=== PATIENT | male | born 1950 | race Caucasian/White ===

== ENCOUNTER → 2018-02-26 06:56 | Outpatient (CLI) | payer MEDICARE, SELFPAY ==
[2018-02-26 07:46] LABS: Absolute Lymphocyte Count 1.41 X10^3/ul (0.83-4.51); Absolute Neutrophil Count 3.3 X10^3/uL (2.0-7.7); Basophil# 0.08 X10^3/uL; Basophil% 1.3 % (0-1); Eosinophil# 0.14 X10^3/uL; Eosinophils% 2.3 % (0-5); Hematocrit 35.4 % (40-54); Hemoglobin 11.5 g/dl (13.0-16.5); Lymphocyte # 1.41 X10^3/ul (4.0); Lymphocyte % 23.5 % (19-41); Mean Corp Hgb Conc 32.5 g/gl (32-36); Mean Corpuscular Hgb 31.5 pg (27.0-32.0); Mean Platelet Vol. 10.5 fl (6.2-12.0); Monocyte# 1.03 X10^3/uL; Monocyte% 17.1 % (0-10); Neutrophil # 3.34 X10^3/uL (2.7-7.7); Neutrophil % 55.6 % (47-70); Platelet Count 303 K/mm3 (150-450); RBC Distribution Width CV 13.4 % (11.6-14.6); RBC Distribution Width SD 47.7 fl (35.1-43.9); Red Blood Count 3.65 M/mm3 (4.6-6.2)
[2018-02-26 07:52] LABS: POSITIVE COUNT NO; POSITIVE DIFFERENTIAL NO; POSITIVE MORPHOLOGY NO
[2018-02-26 08:21] LABS: ALB/GLOB Ratio 0.5 RATIO (0.9-2.4); AST(SGOT) 10 U/L (15-37); Alanine Aminotransfer ALT/SGPT 15 U/L (16-61); Albumin, Serum 2.7 g/dL (3.2-5.0); Alkaline Phosphatase 87 U/L (45-117); Anion Gap 6 (5-15); BUN 22 mg/dL (7-18); BUN/Creat Ratio 25.8 RATIO (10-20); Calcium,Total 8.8 mg/dL (8.5-10.1); Chloride 107 mmol/L (98-107); Creatinine, Serum 0.85 mg/dL (0.70-1.30); EST Glomerular Filtration Rate 95 mL/min (>60); Est Glom Filt Rate - Afr Amer 115 mL/min (>60); Globulin 5.9 g/dL (2.2-4.2); Glucose 108 mg/dL (74-106); Magnesium 2.2 mg/dL (1.6-2.6); Potassium 4.5 mmol/L (3.5-5.1); Protein, Total 8.6 g/dL (6.4-8.2); Sodium Level 139 mmol/L (136-145)
[2018-02-26 08:46] LABS: Hemoglobin A1c 6.3 % (4.2-6.3)
[2018-03-01 14:07] LABS: PROEL- A/G Ratio 0.6 (0.7-1.7); PROEL- Albumin 3.1 g/dL (2.9-4.4); PROEL- Alpha-1 Globulin 0.3 g/dL (0.0-0.4); PROEL- Alpha-2 Globulin 0.9 g/dL (0.4-1.0); PROEL- Beta Globulin 0.8 g/dL (0.7-1.3); PROEL- Gamma Globulin 2.9 g/dL (0.4-1.8); PROEL- Globulin, Total 4.8 g/dL (2.2-3.9); PROEL- TOTAL PROTEIN 7.9 g/dL (6.0-8.5)
[2018-03-02 16:12] LABS: PROELU- Albumin, Urine 0.6 % (.); PROELU- Alpha-1-Globulin,Ur 0.3 % (.); PROELU- Alpha-2-Globulin,Ur 1.9 % (.); PROELU- Beta Globulin, Ur 94.7 % (.); PROELU- Gamma Globulin, Ur 2.5 % (.); PROELU- M-Spike, Ur 90.8 % (Not Observed); Total Protein, Ur 199.2 mg/dL (Not Estab.)
== END ==
PROVIDERS: Family Provider Internal Medicine; PCP Internal Medicine; Visit Provider Internal Medicine
DX: R73.01 Impaired fasting glucose (principal); D47.2 Monoclonal gammopathy; Z79.899 Other long term (current) drug therapy
CPT/HCPCS: 36415; 80053; 83036; 83735; 84165; 84166; 85025

== ENCOUNTER → 2018-08-26 06:30 | Outpatient (CLI) | payer MEDICARE, SELFPAY ==
[2018-08-26 07:43] LABS: Absolute Lymphocyte Count 1.69 X10^3/ul (0.83-4.51); Absolute Neutrophil Count 4.9 X10^3/uL (2.0-7.7); Basophil% 1.3 % (0-1); Eosinophil# 0.13 X10^3/uL; Eosinophils% 1.6 % (0-5); Hematocrit 36.3 % (40-54); Hemoglobin 11.4 g/dl (13.0-16.5); Lymphocyte # 1.69 X10^3/ul (4.0); Lymphocyte % 21.3 % (19-41); Mean Corp Hgb Conc 31.4 g/gl (32-36); Mean Corpuscular Hgb 31.1 pg (27.0-32.0); Mean Corpuscular Volume 98.9 fL (80-94); Mean Platelet Vol. 10.6 fl (6.2-12.0); Monocyte# 1.06 X10^3/uL; Monocyte% 13.4 % (0-10); Neutrophil # 4.94 X10^3/uL (2.7-7.7); Neutrophil % 62.1 % (47-70); POSITIVE COUNT NO; POSITIVE DIFFERENTIAL NO; POSITIVE MORPHOLOGY NO; Platelet Count 324 K/mm3 (150-450); RBC Distribution Width CV 13.5 % (11.6-14.6); RBC Distribution Width SD 47.2 fl (35.1-43.9); Red Blood Count 3.67 M/mm3 (4.6-6.2); White Blood Count 7.9 K/mm3 (4.4-11.0)
[2018-08-26 08:08] LABS: ALB/GLOB Ratio 0.4 RATIO (0.9-2.4); AST(SGOT) 11 U/L (15-37); Alanine Aminotransfer ALT/SGPT 19 U/L (16-61); Albumin, Serum 2.4 g/dL (3.2-5.0); Alkaline Phosphatase 97 U/L (45-117); Anion Gap 8 (5-15); BUN 23 mg/dL (7-18); BUN/Creat Ratio 24.3 RATIO (10-20); Calcium,Total 8.9 mg/dL (8.5-10.1); Chloride 104 mmol/L (98-107); Cholesterol 69 mg/dL (200); Creatinine, Serum 0.94 mg/dL (0.70-1.30); EST Glomerular Filtration Rate 84 mL/min (>60); Est Glom Filt Rate - Afr Amer 102 mL/min (>60); Globulin 6.4 g/dL (2.2-4.2); Glucose 121 mg/dL (74-106); High Density Lipoprotein 30 mg/dL; Magnesium 2.2 mg/dL (1.6-2.6); Potassium 4.6 mmol/L (3.5-5.1); Protein, Total 8.8 g/dL (6.4-8.2); Sodium Level 139 mmol/L (136-145); Triglycerides 59 mg/dL; Very Low Density Lipoprotein 12 mg/dL (5-40)
[2018-08-26 08:23] LABS: Hemoglobin A1c 6.8 % (4.2-6.3)
[2018-08-29 15:47] LABS: PROEL- A/G Ratio 0.6 (0.7-1.7); PROEL- Albumin 2.9 g/dL (2.9-4.4); PROEL- Alpha-1 Globulin 0.3 g/dL (0.0-0.4); PROEL- Beta Globulin 0.7 g/dL (0.7-1.3); PROEL- Gamma Globulin 3.2 g/dL (0.4-1.8); PROEL- Globulin, Total 5.2 g/dL (2.2-3.9); PROEL- TOTAL PROTEIN 8.1 g/dL (6.0-8.5)
[2018-08-30 16:24] LABS: PROELU- Albumin, Urine 3.7 % (.); PROELU- Alpha-1-Globulin,Ur 1.1 % (.); PROELU- Alpha-2-Globulin,Ur 4.4 % (.); PROELU- Beta Globulin, Ur 87.8 % (.); PROELU- Gamma Globulin, Ur 3.1 % (.); PROELU- M-Spike, Ur 83.2 % (Not Observed); Total Protein, Ur 137.5 mg/dL (Not Estab.)
== END ==
PROVIDERS: Family Provider Internal Medicine; PCP Internal Medicine; Referring Provider Internal Medicine; Visit Provider Internal Medicine
DX: E78.6 Lipoprotein deficiency (principal); R73.01 Impaired fasting glucose; Z79.899 Other long term (current) drug therapy
CPT/HCPCS: 36415; 80053; 80061; 83036; 83735; 84165; 84166; 85025

== ENCOUNTER 2019-01-29 04:52 | Emergency (ER) | payer MEDICARE, SELFPAY ==
[2019-01-29 04:52] VITALS: BP 139/79; PULSE 88; RESP 14; TEMP 36.8; O2SAT 97; BMI 28.2
--- NOTE | 2019-01-29 05:16 | ED.VIS.GEN ---
History of Present Illness Chief Complaint: Sore Throat Informant: Patient Narrative: She has had 3 days of nonproductive cough and sore throat. He went to urgent care and given cough medicine on day 1. He is taken Tylenol and ibuprofen and other olvt-cir-rahbmiy's. Comes in to make sure he does not have strep throat. Current severity is mild. Worsened by swallowing. No fevers or chills. He does have some soreness in the left side of his lymph nodes per patient. He has no sick contacts Past Medical History - Allergies and Home Meds Allergies/Adverse Reactions: Allergies No Known Allergies Allergy (Verified 01/29/19 04:54) Primary Care Physician: Francheska Perez MD [Primary Care Provider] - Prior records reviewed: Yes Past Medical History: - - Reviewed Surgical History: - - Reviewed Smoking Status: Former smoker Alcohol: None Drugs: None Review of Systems General: Denies: Chills, Fever, Sweats Eyes: Denies: Visual changes - bilaterally, Diplopia ENT: Reports: Sore throat. Denies: Rhinorrhea Cardiovascular: Denies: Chest pain, Palpitations Respiratory: Reports: Cough. Denies: Dyspnea, Dyspnea on exertion Gastrointestinal: Denies: Abdominal pain, Nausea, Vomiting, Diarrhea, Melena, Hematochezia Genitourinary: Denies: Dysuria, Hematuria, Frequency Musculoskeletal: Denies: Back pain, Extremity Pain Skin: Denies: Rash, Wounds Neurological: Denies: Headache, Weakness, Numbness Physical Exam Vital Signs/Narrative: Vital Signs Temp Pulse Resp BP Pulse Ox 01/29/19 04:52 98.3 F 88 14 139/79 H 97 General: Well nourished, Well developed, No Acute Distress Head: Normocephalic, Atraumatic Eyes: Perrl, EOMI ENT: Moist mucous membranes, No rhinorrhea, - - She has 2+ tonsils bilaterally without exudate. Mild erythema Neck: Supple, Nontender Cardiovascular: Regular rate, Regular rhythm, No murmurs Respiratory: No distress, CTA bilaterally, Chest nontender Abdomen: Soft, Nontender, Nondistended, Normal bowel sounds Back: Nontender, Normal Inspection Extremities: Nontender, No edema Skin: Normal color, No rash Neurological: Alert, Oriented x3, Cranial nerves II-XII grossly intact, Normal Strength, Normal Sensation Psychological: Normal affect, Normal Mood Diagnostic/Tx/Re-eval - Medical Decision Making Patient stated he just took pain medicines at home therefore did not want anything. Rapid strep obtained. Strep test negative. At this time I think the patient just has a viral upper respiratory infection. We will continue to treat this symptomatically. We will follow-up as an outpatient. ED Disposition - Plan for ED Patient: Disposition: Home or Assisted Living Diagnosis: Upper respiratory infection Instructions: ED Pharyngitis Viral Referrals: Francheska Perez MD [Primary Care Provider] -
[2019-01-29 06:29] VITALS: BP 124/70; PULSE 84; RESP 16; O2SAT 98
== END 2019-01-29 06:30 | disposition home or self-care (01) ==
PROVIDERS: Emergency Provider Emergency Medicine; Family Provider Internal Medicine; PCP Internal Medicine
DX: J06.9 Acute upper respiratory infection, unspecified (principal); Z87.891 Personal history of nicotine dependence
CPT/HCPCS: 87880; 99282

== ENCOUNTER → 2019-05-30 06:06 | Outpatient (CLI) | payer MEDICARE, SELFPAY ==
[2019-05-30 07:19] LABS: Hematocrit 32.7 % (40-54); Hemoglobin 10.3 g/dL (13.0-16.5); Mean Corp Hgb Conc 31.5 g/dL (32-36); Mean Corpuscular Hgb 30.5 pg (27.0-32.0); Mean Corpuscular Volume 96.7 fL (80-94); Mean Platelet Vol. 10.2 fl (6.2-12.0); Platelet Count 297 K/mm3 (150-450); RBC Distribution Width CV 13.8 % (11.6-14.6); RBC Distribution Width SD 49.1 fl (35.1-43.9); Red Blood Count 3.38 M/mm3 (4.6-6.2); White Blood Count 7.4 K/mm3 (4.4-11.0)
[2019-05-30 07:50] LABS: Hemoglobin A1c 7.8 % (4.2-6.3)
[2019-05-30 07:52] LABS: ALB/GLOB Ratio 0.3 RATIO (0.9-2.4); AST(SGOT) 12 U/L (15-37); Alanine Aminotransfer ALT/SGPT 22 U/L (16-61); Albumin, Serum 2.3 g/dL (3.2-5.0); Alkaline Phosphatase 95 U/L (45-117); Anion Gap 8 (5-15); BUN 22 mg/dL (7-18); BUN/Creat Ratio 20.4 RATIO (10-20); Chloride 103 mmol/L (98-107); Creatinine, Serum 1.08 mg/dL (0.70-1.30); EST Glomerular Filtration Rate 72 mL/min (>60); Est Glom Filt Rate - Afr Amer 87 mL/min (>60); Globulin 6.8 g/dL (2.2-4.2); Glucose 153 mg/dL (74-106); Potassium 4.4 mmol/L (3.5-5.1); Protein, Total 9.1 g/dL (6.4-8.2); Sodium Level 137 mmol/L (136-145)
== END ==
PROVIDERS: Family Provider Internal Medicine; PCP Internal Medicine; Referring Provider Internal Medicine; Visit Provider Internal Medicine
DX: R73.01 Impaired fasting glucose (principal); Z79.899 Other long term (current) drug therapy
CPT/HCPCS: 36415; 80053; 83036; 85027

== ENCOUNTER → 2019-11-29 05:51 | Outpatient (CLI) | payer MEDICARE, SELFPAY ==
[2019-11-29 06:41] LABS: Hematocrit 30.9 % (40-54); Hemoglobin 9.8 g/dL (13.0-16.5); Mean Corp Hgb Conc 31.7 g/dL (32-36); Mean Corpuscular Hgb 29.9 pg (27.0-32.0); Mean Corpuscular Volume 94.2 fL (80-94); Mean Platelet Vol. 10.2 fl (6.2-12.0); Platelet Count 303 K/mm3 (150-450); RBC Distribution Width CV 14.1 % (11.6-14.6); RBC Distribution Width SD 48.3 fl (35.1-43.9); Red Blood Count 3.28 M/mm3 (4.6-6.2); White Blood Count 7.2 K/mm3 (4.4-11.0)
[2019-11-29 07:10] LABS: ALB/GLOB Ratio 0.3 RATIO (0.9-2.4); AST(SGOT) 9 U/L (15-37); Alanine Aminotransfer ALT/SGPT 18 U/L (16-61); Albumin, Serum 2.3 g/dL (3.2-5.0); Alkaline Phosphatase 97 U/L (45-117); Anion Gap 6 (5-15); BUN 25 mg/dL (7-18); Calcium,Total 9.3 mg/dL (8.5-10.1); Chloride 101 mmol/L (98-107); Cholesterol 75 mg/dL (200); Creatinine, Serum 1.39 mg/dL (0.70-1.30); EST Glomerular Filtration Rate 54 mL/min (>60); Est Glom Filt Rate - Afr Amer 65 mL/min (>60); Globulin 7.5 g/dL (2.2-4.2); Glucose 164 mg/dL (74-106); High Density Lipoprotein 32 mg/dL; Potassium 4.5 mmol/L (3.5-5.1); Protein, Total 9.8 g/dL (6.4-8.2); Sodium Level 134 mmol/L (136-145); Triglycerides 54 mg/dL; Very Low Density Lipoprotein 11 mg/dL (5-40)
[2019-11-29 10:17] LABS: Hemoglobin A1c 7.9 % (4.2-6.3)
== END ==
PROVIDERS: PCP Internal Medicine; Referring Provider Internal Medicine; Visit Provider Internal Medicine
DX: R73.09 Other abnormal glucose (principal); E88.09 Other disorders of plasma-protein metabolism, not elsewhere classified; Z79.899 Other long term (current) drug therapy; I70.0 Atherosclerosis of aorta
CPT/HCPCS: 36415; 80053; 80061; 83036; 85027

== ENCOUNTER → 2020-01-11 06:01 | Outpatient (CLI) | payer MEDICARE, SELFPAY ==
[2020-01-11 07:34] LABS: Hematocrit 29.1 % (40-54); Mean Corp Hgb Conc 30.9 g/dL (32-36); Mean Corpuscular Hgb 30.3 pg (27.0-32.0); Mean Platelet Vol. 10.4 fl (6.2-12.0); Platelet Count 298 K/mm3 (150-450); RBC Distribution Width CV 14.2 % (11.6-14.6); RBC Distribution Width SD 50.2 fl (35.1-43.9); Red Blood Count 2.97 M/mm3 (4.6-6.2); White Blood Count 6.1 K/mm3 (4.4-11.0)
[2020-01-11 08:11] LABS: ALB/GLOB Ratio 0.3 RATIO (0.9-2.4); AST(SGOT) 13 U/L (15-37); Alanine Aminotransfer ALT/SGPT 19 U/L (16-61); Albumin, Serum 2.2 g/dL (3.2-5.0); Alkaline Phosphatase 95 U/L (45-117); Anion Gap 6 (5-15); BUN 20 mg/dL (7-18); BUN/Creat Ratio 14.6 RATIO (10-20); Calcium,Total 8.9 mg/dL (8.5-10.1); Chloride 102 mmol/L (98-107); Creatinine, Serum 1.37 mg/dL (0.70-1.30); EST Glomerular Filtration Rate 55 mL/min (>60); Est Glom Filt Rate - Afr Amer 66 mL/min (>60); Globulin 6.7 g/dL (2.2-4.2); Glucose 185 mg/dL (74-106); Potassium 4.2 mmol/L (3.5-5.1); Protein, Total 8.9 g/dL (6.4-8.2); Sodium Level 134 mmol/L (136-145)
== END ==
PROVIDERS: PCP Internal Medicine; Referring Provider Internal Medicine; Visit Provider Internal Medicine
DX: N18.3 Chronic kidney disease, stage 3 (moderate) (principal); D89.0 Polyclonal hypergammaglobulinemia; D89.2 Hypergammaglobulinemia, unspecified; D64.9 Anemia, unspecified
CPT/HCPCS: 36415; 80053; 83883; 84165; 84166; 85027

== ENCOUNTER → 2020-06-27 06:00 | Outpatient (CLI) | payer MEDICARE, SELFPAY ==
[2020-06-27 08:00] LABS: Hemoglobin A1c 7.2 % (3.8-5.6)
[2020-06-27 08:05] LABS: ALB/GLOB Ratio 0.3 RATIO (0.9-2.4); AST(SGOT) 11 U/L (15-37); Alanine Aminotransfer ALT/SGPT 18 U/L (16-61); Albumin, Serum 2.1 g/dL (3.2-5.0); Alkaline Phosphatase 109 U/L (45-117); Anion Gap 4 (5-15); BUN 25 mg/dL (7-18); BUN/Creat Ratio 16.4 RATIO (10-20); Calcium,Total 9.3 mg/dL (8.5-10.1); Chloride 106 mmol/L (98-107); Creatinine, Serum 1.52 mg/dL (0.70-1.30); EST Glomerular Filtration Rate 48 mL/min (>60); Est Glom Filt Rate - Afr Amer 59 mL/min (>60); Globulin 6.8 g/dL (2.2-4.2); Glucose 153 mg/dL (74-106); Potassium 4.3 mmol/L (3.5-5.1); Protein, Total 8.9 g/dL (6.4-8.2); Sodium Level 139 mmol/L (136-145)
[2020-06-27 11:14] LABS: Microalbumin,Random Urine 31.9 mg/L (NO RANGE EST.)
== END ==
PROVIDERS: PCP Internal Medicine; Referring Provider Internal Medicine; Visit Provider Internal Medicine
DX: E11.9 Type 2 diabetes mellitus without complications (principal)
CPT/HCPCS: 36415; 80053; 82043; 82570; 83036

== ENCOUNTER → 2020-07-19 08:22 | Outpatient (CLI) | payer MEDICARE, SELFPAY ==
--- NOTE | 2020-07-18 | BMB_PTH ---
PATIENT: HUMBERTO LOZANO LOC: CT U#:[id number] AGE/SX: 75/M ROOM: RE07/19/[address]: Dr. Biju Strong DO : 1950 BED: DIS: SPEC #: [id number] RECD: 07/19/20 12:42 STATUS: SOUAmish REQ #: [id number] FOREIGN: 07/18/20 00:[address]: Biju Strong DEPT: BONE MARROW RECD BY: Gilson Marie ENTERED: 07/19/20 12:43 SP TYPE: BMB OTHR DR: Dr. Francheska Perez MD Tissues: A - Bone marrow, NOS B - Bone marrow, NOS C - Bone marrow, NOS Procedures: Bone Marrow Aspiration Bone Marrow Core Biopsy Iron Stain Bone Marrow HEADER OPERATION: Bone marrow biopsy and aspiration PRE-OP DIAGNOSIS: IgM monoclonal gammopathy; lymphoplasmacytic lymphoma TISSUE SUBMITTED: A - Core, B - Clot, C - Smears, and send outs (flow, cytogenetics and MYD88) BONE MARROW DIAGNOSIS Right hip bone marrow core, clot and aspirate smears: Consistent with involvement by non-Hodgkin B-cell lymphoma, favor lymphoplasmacytic lymphoma. Iron - 4+, rare atypical sideroblasts are noted, significant increase of ring sideroblasts are not seen. Flow cytometry study from [facility] shows CD5 negative, CD10 negative, CD103 negative clonal B cell population, nonspecific phenotype, 3% of nonerythroid cells. The complete report is viewable in patient's EMR. Cytogenetic studies and FISH studies are pending at this time. SJ:neil 07/24/20 COMMENT Bone marrow core biopsy specimen is nondiagnostic and does not show any bone marrow core or hematopoietic cells. Clinical correlation and appropriate follow up are necessary. Case has been reviewed in consultation with Dr. Conrad who concurs with the above diagnosis. IDC:AM BONE MARROW STUDY Slides are reviewed. CBC DATE: 07/19/20 WBC 6.4; RBC 2.91; HGB 8.8; HCT 29.4; MCV 101; RDW 14.1; PLTS 329,000 SEGS 67.9%; LYMPHS 17.9%; MONOS 11.0%; EOS 1.3%; BASOS 1.4% PERIPHERAL SMEAR: Submitted. RBC: Macrocytic anemia WBC: Unremarkable. The WBC count is compatible to as reported above. PLTS: Adequate. BONE MARROW ASPIRATE DIFFERENTIAL: 200 cell count. Blasts % (normal 0-2): 0 Promyelocytes % (normal 1-5): 0 Myelocytes and metamyelocytes % (normal 17-41): 24 Bands and Segs % (normal 15-32): 25 Eos % (normal 1-6): 5 Basos % (normal 0-1): 0 Monocytes % (normal 0-4): 0 Erythroid Precursors % (normal 17-35): 14 Lymphocytes % (normal 7-13): 30 Plasma Cells % (normal 0-2): 2 ASPIRATE FINDINGS: Site: Right hip Spicular, Cellular M/E ratio: 3.9 (Normal 1.5-4.0) Megakaryocytes: Present and normal morphology. Erythropoiesis: Normoblastic. Granulopoiesis: Progressive and unremarkable. Comment: Increased number of small lymphocytes are noted. Significant increase of plasma cells is not seen. CORE BIOPSY FINDINGS: Site: Right hip Comment: The specimen is nondiagnostic and does not show any bone marrow core or hematopoietic cells. ASPIRATE CLOT FINDINGS: Site: Right hip Marrow particles: Numerous Cellularity: 50% M/E ratio: Within normal limits. Megakaryocytes: Present and adequate in number. Granulomas: Absent. Lymphoid aggregates: Present. Atypical infiltrates: Present. Comment: Immunohistochemistry ([id number]) is consistent with involvement by non-Hodgkin B-cell lymphoma, favor lymphoplasmacytic lymphoma. Mild increase of plasma cells is also noted with kappa monoclonality. SPECIAL STAINS WITH MATCHED CONTROLS: Iron: 4+, are atypical sideroblasts are noted. Significant increase of ring sideroblasts are not seen. Reticulin: focal mild increase of reticulin fibers are noted. PAS: Highlights myeloid cells and megakaryocytes. BONE MARROW GROSS A - Received is a container labeled with the patient's name and designated right hip. The specimen consists of a scant amount of soft tissue. The specimen is totally submitted for cell block preparation. B - Received labeled with the patient's name and designated right hip is a specimen that consists of approximately 8 cc of bloody fluid that on filtration yields multiple minute fragments of blood clots measuring in aggregate 3 x 2.5 x 0.3 cm. The specimen is totally submitted in one cassette. C - Also received are 20 unstained and 1 peripheral stained slides. The unstained slides are submitted for appropriate staining. Also received are two green top tubes which are sent to our reference lab for flow, cytogenetics and MYD88. / SJ:rg 07/19/20 TC:0 CPT: 14630, 70195, 07807 x2, 89331 x3 ADDENDUM ADDENDUM ADDENDUM ADDENDUM ADDENDUM ADDENDUM ADDENDUM ADDENDUM 07/31/2020 10:49 ADDENDUM 07/31/2020 10:49 ADDENDUM 07/31/2020 10:49 ADDENDUM 07/31/2020 10:49 ADDENDUM 07/31/2020 10:49 CYTOGENETICS REPORT FROM [facility] CYTOGENETIC RESULT: 46,XY[20] INTERPRETATION: Normal male karyotype was observed in twenty metaphases analyzed. Please see complete report in e-chart or EMR for further details
--- NOTE | 2020-07-18 | IMM_PTH ---
PATIENT: HUMBERTO LOZANO LOC: CT U#:[id number] AGE/SX: 75/M ROOM: RE07/19/[address]: Dr. Biju Strong DO : 1950 BED: DIS: SPEC #: [id number] RECD: 07/22/20 10:28 STATUS: SOUT REQ #: [id number] FOREIGN: 07/18/20 00:[address]: Biju Strong DEPT: IMMUNOHISTOCHEMISTRY RECD BY: Kacy Lopez ENTERED: 07/22/20 10:30 SP TYPE: IMMUNO OTHR DR: Dr. Francheska Perez MD Tissues: B - Bone marrow of iliac crest Procedures: BCL-2 (add) BCL-6 (add) CD10 (add) CD138 (add) CD20 (add) CD23 (add) CD3 (add) CD43 (add) CD45 (add) CD79A (add) CYCLIN (add) KAPPA (add) KI-67 (add) LAMBDA (add) CD5 (initial) PHYSICIAN & [address] [address] SPECIMEN INFORMATION: Tissue Source: B - Bone marrow biopsy, clot Clinical Info: IgM monoclonal gammopathy, lymphoplasmacytic lymphoma Specimen Number: [id number] CPT code: 90204, 90279 x14 METHODOLOGY: Deparaffinized sections of prefer/formalin-fixed tissue or PAP/DQ stained slides are incubated with monoclonal/polyclonal antibodies/oligonucleotide probes. Localization is made via biotin free immunoperoxidase method. Appropriate controls are performed and reacted as expected. Results on target cell population are indicated in the following table: RESULTS: ANTIBODY / CLONE RESULT Block B CD3 (PS1) negative CD5 (SP10) negative CD10 (56C6) negative CD20 (L26) positive CD23 (1B12) negative CD43 (L60) positive CD45 (RP2/18) positive CD79a (11E3) positive CD138 (B-A38) positive, a few cells BCL-2 (bcl-2/100/D5) positive BCL-6 (TC812Q/A8) negative [place] D1/BCL-1 (SP4) negative Ki-67 (30-9) positive, low [place] (polyclonal) positive Lambda (polyclonal) negative These tests were developed and their performance characteristics determined by [facility]. They may not have been cleared or approved by the U.S. Food and Drug Administration. The FDA has determined that such clearance or approval is not necessary. The above immunohistochemical/dualISH markers are ordered and reviewed by the Pathologist. INTERPRETATION: B. Bone marrow biopsy, clot: Consistent with involvement by non-Hodgkin B-cell lymphoma, favor lymphoplasmacytic lymphoma. SJ:neil 07/24/20 Case has been reviewed in consultation with Dr. Conrad who concurs with the above diagnosis. IDC:AM
[2020-07-19] VITALS (11 sets, daily range): BP systolic 97–157; BP diastolic 48–88; PULSE 66–82; RESP 12–20; TEMP 36.4; O2SAT 93–99; BMI 26.9
[2020-07-19 08:45] LABS: Absolute Lymphocyte Count 1.14 X10^3/uL (0.83-4.51); Absolute Neutrophil Count 4.3 X10^3/uL (2.0-7.7); Basophil# 0.09 X10^3/uL; Basophil% 1.4 % (0-1); Eosinophil# 0.08 X10^3/uL; Eosinophils% 1.3 % (0-5); Hematocrit 29.4 % (40-54); Hemoglobin 8.8 g/dL (13.0-16.5); Lymphocyte # 1.14 X10^3/ul (4.0); Lymphocyte % 17.9 % (19-41); Mean Corp Hgb Conc 29.9 g/dL (32-36); Mean Corpuscular Hgb 30.2 pg (27.0-32.0); Mean Platelet Vol. 10.2 fl (6.2-12.0); NRBC Flagged by Analyzer 0 % (0-5); Neutrophil # 4.34 X10^3/uL (2.7-7.7); Neutrophil % 67.9 % (47-70); Platelet Count 329 K/mm3 (150-450); RBC Distribution Width CV 14.1 % (11.6-14.6); RBC Distribution Width SD 52.5 fl (35.1-43.9); Red Blood Count 2.91 M/mm3 (4.6-6.2); White Blood Count 6.4 K/mm3 (4.4-11.0)
[2020-07-19 08:51] LABS: International Normalized Ratio 1.2; Prothrombin Time (Protime)PT. 14.5 SECONDS (11.7-14.9)
--- NOTE | 2020-07-19 09:04 | CT_ITS ---
PROCEDURE: CT GUIDED BONE marrow biopsy and aspiration of the posterior aspect of the right iliac bone. DATE: 07/19/2020. INDICATION: Male, 70 years old. Monoclonal gammopathy. PHYSICIAN: Nicanor Thomas M.D. RADIATION DOSAGE (If Supplied By Facility): CTDIvol = ( 15.2 ) mGy, DLP = ( 350.86 ) mGycm. Individualized dose optimization techniques were utilized. PROCEDURE: The risks, benefits, and alternatives to the procedure were explained to the patient. The specific risk of hemorrhage requiring further treatment or intervention was detailed and accepted. Follow-up instructions were discussed with the patient as well. Written informed consent was obtained. The patient was brought into the CT suite and placed in the prone position. . An appropriate entry site was identified. The overlying skin was prepped and draped in the usual sterile fashion. 1% lidocaine was administered subcutaneously for local anesthesia. Conscious sedation was performed. The patient received 2 mg of VERSED and 50 mcg of FENTANYL intravenously. Conscious sedation was started at 9:28 AM and terminated at 9:39 AM. The patient was independently monitored by the department nurse. Under CT guidance, a bone marrow biopsy and bone marrow aspiration of the posterior aspect of the right iliac bone were performed utilizing an 11-gauge bone marrow biopsy kit. The specimens were then placed in the appropriate fluid in transported to the laboratory for analysis. Hemostasis was obtained. The patient tolerated the procedure well without immediate complications. CT/Biopsy/Inj or Needle Placement IMPRESSION: Successful CT guided bone marrow biopsy and aspiration of the posterior aspect of the right iliac bone, as described above. The conscious sedation protocol was followed. Electronically Signed: Nicanor Thomas, at 10:08 EDT , Service support ,
--- NOTE | 2020-07-19 09:09 | NURSING ---
PT HAS HEART MURMUR WHICH HE HAS HAD SINCE HE WAS A CHILD.
[2020-07-19] MEDS: Midazolam 2 MG/2 ML Syringe IV (09:28)
[2020-07-19] MEDS: fentaNYL 100 MCG/2 ML Ampul IV (09:30)
[2020-07-19 09:49] LABS: Bone Marrow Aspiraton SEE PATHOLOGY REPORT
== END ==
PROVIDERS: PCP Internal Medicine; Referring Provider Internal Medicine Hematology & Oncology; Visit Provider Internal Medicine Hematology & Oncology
DX: D47.2 Monoclonal gammopathy (principal)
CPT/HCPCS: 38222; 36415; 77012; 85025; 85610; 88305; 88311; 88313; 88341; 88342; J7040

== ENCOUNTER → 2020-09-19 07:46 | Outpatient (CLI) | payer MEDICARE, SELFPAY ==
[2020-07-19 09:03] VITALS: BMI 26.9
[2020-09-17 07:16] LABS: Hematocrit 29.9 % (40-54); Mean Corp Hgb Conc 30.1 g/dL (32-36); Mean Corpuscular Hgb 30.2 pg (27.0-32.0); Mean Corpuscular Volume 100.3 fL (80-94); Mean Platelet Vol. 9.8 fl (6.2-12.0); Platelet Count 350 K/mm3 (150-450); RBC Distribution Width CV 14.3 % (11.6-14.6); RBC Distribution Width SD 52.6 fl (35.1-43.9); Red Blood Count 2.98 M/mm3 (4.6-6.2)
[2020-09-17 07:20] LABS: International Normalized Ratio 1.2; Prothrombin Time (Protime)PT. 14.3 SECONDS (11.7-14.9)
[2020-09-19] VITALS (9 sets, daily range): BP systolic 99–138; BP diastolic 60–86; PULSE 73–83; RESP 14–23; TEMP 36.6; O2SAT 94–100; BMI 26.9
--- NOTE | 2020-09-19 | KID_PTH ---
PATIENT: HUMBERTO LOZANO LOC: ID U#:[id number] AGE/SX: 75/M ROOM: RE09/19/[address]: Dr. Mckenna Jaime DO : 1950 BED: DIS: SPEC #: [id number] RECD: 09/19/20 09:31 STATUS: JOSE J MICHAEL #: [id number] FOREIGN: 09/19/20 00:[address]: Mckenna Jaime DEPT: SURGICAL PATHOLOGY RECD BY: oHng Celaya ENTERED: 09/19/20 09:31 SP TYPE: KIDNEY OTHR DR: Dr. Francheska Perez MD Tissues: Kidney, NOS Procedures: Fluorescent Antibody (ACH) Sp St Grp II Kidney ([facility]) Kidney Biopsy ([facility]) Fluorescent antibody (ACH) add'l HEADER OPERATION: Right kidney biopsy PRE-OP DIAGNOSIS: Proteinuria TISSUE SUBMITTED: Right kidney lower pole 18-gauge core x4 MICROSCOPIC DIAGNOSIS Kidney, right (lower pole), renal biopsy: Tissue insufficient for definitive diagnosis/complete evaluation. Recommend repeat biopsy (see comment). COMMENT The findings are those of predominantly renal medullary tissue with rare glomeruli (3 in routine microscopic sections. 1 in immunofluorescent microscopic sections, N0 and electron microscopic sections) with normal mesangial matrix and cellularity with open capillary loops. No glomerular sclerosis or glomerular collapse is seen. No epithelial crescents are identified. No immunofluorescence/ immunofluorescent deposits are identified. No fuchsinophilic deposits are identified (trichrome stain). Additional pertinent negatives are identified within light microscopic evaluation. However, overall, the present tissue/tissue biopsy is insufficient for definitive/complete evaluation due to marked paucity of glomeruli for histologic and with predominant sampling of renal vasculature and medullary tissue. Only a total of 4 glomeruli are present for histologic evaluation and no glomeruli are available for electron microscopic studies, in the background of the patient's history of proteinuria. Given the patient's history of proteinuria, rebiopsy is advised for more definitive renal cortical (glomerular) sampling which will afford definitive evaluation for glomerular sclerosis or collapse, renal immune deposits (especially by electron microscopic studies) as well as evaluation of podocyte foot processes, among other studies. Tissue insufficient for definitive/complete evaluation; recommend repeat biopsy, as clinically directed. MICROSCOPIC DESCRIPTION LIGHT MICROSCOPY: Unsatisfactory biopsy consisting predominantly of renal medulla/medullary tissue with small admixed portion of renal cortex with up to 3 glomeruli or portions of glomeruli for histologic evaluation. Large vessel/vascular sampling is also identified. The majority of the specimen is that of renal medulla/medullary tissue. Portions of the renal cortex demonstrate 2-3 glomeruli with normal mesangial matrix and cellularity with open capillary loops. Mild arteriolar hyalinosis is seen. Associated interstitial chronic inflammation is seen. No definitive acute/allergic interstitial nephritis is noted. No definitive tubular damage is seen. No epithelial crescents are identified. No areas of glomerular sclerosis are seen. PAS stain highlights rare glomerulus with normal mesangial matrix and cellularity. Mild arteriolar hyalinosis is seen. No glomerular vascular collapse is noted. Mild tubular resorption droplets are identified with an intact tubular epithelial cell cytoplasm. So (silver) stain demonstrates 3 glomeruli with normal mesangial matrix and cellularity and with open capillary loops without areas of sclerosis or collapse. No epithelial crescents are seen. Basement membranes demonstrate normal thickness and normal contour without breaks, splits or irregular luminal outlines. Trichrome stain is negative for fuchsinophilic deposits with rare (3) glomeruli identified. No appreciable interstitial/stromal fibrosis is seen. Large vessel/vascular sampling of medulla/pelvis is noted. Congo red stain is negative congophilia as well as birefringence or dichromatism by polarization microscopy. IMMUNOFLUORESCENCE: Tissue submitted for immunofluorescence microscopy demonstrates renal cortex and medulla and up to 1 glomerulus of a portion of glomerulus for histologic evaluation. Glomerulus demonstrates mild arteriolar hyalinosis of a ferret arterial and normal mesangial matrix and cellularity without areas of epithelial crescent or sclerosis or fibrosis. IgG, IgA, IgM, C3, C1q, kappa light chain and lambda light chain are negative for glomerular, tubulointerstitium or vascular staining. Paucity of glomeruli (immunofluorescence sections) precludes evaluation for/by albumin and fibrinogen. ELECTRON MICROSCOPY: Toluidine blue-stained sections (thick/shell trim tool setter sections) fail to reveal any glomeruli for histologic evaluation. Specimen consists predominantly or renal medullary tissue. Ultrastructure examination is not performed due to lack of glomeruli within sections for electron microscopic studies. GROSS DESCRIPTION The specimen is sent entirely to [facility] for diagnosis. Received in transport medium labeled with the patient's name and kidney biopsy - right, the specimen consists of four-core biopsy specimens of matthews-yellow renal parenchyma which are from 0.2 to 0.7 cm maximum dimension. Director Of [employer] Services piece is submitted for immunofluorescence microscopy. Director Of Medical Staff Services piece is submitted for electron microscopic studies. The remainder of the specimen is entirely submitted as A1.
--- NOTE | 2020-09-19 07:50 | CT_ITS ---
PROCEDURE: CT GUIDED PERCUTANEOUS KIDNEY BIOPSY. DATE: PROCEDURE: CT GUIDED PERCUTANEOUS KIDNEY BIOPSY. DATE: 09/19/2020. INDICATION: Male, 70 years old. Proteinuria. PHYSICIAN: Nicanor Thomas M.D. MEDICATIONS: 2 mg of VERSED and 50 mcg of FENTANYL intravenously. Conscious sedation was started at 8:37 AM and terminated at 8:54 AM. The patient was independently monitored by the department nurse. ACCESS SITE: Lower pole of the right kidney. NEEDLE: 18-gauge core biopsy needle. SPECIMEN: 4 18-gauge cores. EBL: None. COMPLICATIONS: None immediate. RADIATION DOSAGE (If Supplied By Facility): CTDIvol = ( 16.3 ) mGy, DLP = ( 834.59 ) mGycm. Individualized dose optimization techniques were utilized. The risks, benefits, and alternatives to the procedure and sedation were explained to the patient. The specific risk of hemorrhage requiring further treatment or intervention was detailed and accepted. Written informed consent was obtained. The patient was placed on the CT table in the prone position. Multiple axial images were obtained from the lung base through the caudal extent of the kidneys. An appropriate entry site was identified and a garo made on the skin. The skin overlying the [right ] posterior flank was prepped and draped in sterile fashion. 1% lidocaine was administered subcutaneously for local anesthesia. Initially, a 22 gauge needle was advanced and CT images confirmed good needle position. The 22 gauge needle was then exchanged for an 17 gauge introducer needle which was advanced. Repeat CT images confirmed good needle trajectory and tip position. The introducer needle was then advanced into the periphery of the inferior renal pole, and CT images were again obtained to confirm exact tip location. The inner stylet of the introducer needle was then removed and an 18 gauge coaxial needle was advanced thru the introducer needle and biopsy performed. A total of [4 ] passes were performed and the specimen collected was sent to Pathology for further evaluation. The needle was withdrawn. Hemostasis was achieved with manual compression and a sterile dressing was applied. Repeat CT images of the biopsy area was performed which demonstrated no gross bleeding or hematoma. The patient tolerated the procedure well without immediate complications. The patient was transported to the [recovery area] in stable condition. CT/Biopsy/Inj or Needle Placement IMPRESSION: Successful CT guided percutaneous kidney biopsy. Electronically Signed: Nicanor Thomas, at 9:25 EST , Service support ,
[2020-09-19] MEDS: Midazolam 2 MG/2 ML Syringe IV (08:37)
[2020-09-19] MEDS: fentaNYL 100 MCG/2 ML Ampul IV (08:39)
== END ==
PROVIDERS: PCP Internal Medicine; Referring Provider Internal Medicine Nephrology; Visit Provider Internal Medicine Nephrology
DX: R80.9 Proteinuria, unspecified (principal)
CPT/HCPCS: 50200; 36415; 77012; 85027; 85610; 88305; 88313; 88346; 88350; 99155; 99156; J7040; A4216

== ENCOUNTER → 2020-10-02 05:59 | Outpatient (CLI) | payer MEDICARE, SELFPAY ==
[2020-07-19 09:03] VITALS: BMI 26.9
[2020-09-19 08:04] VITALS: BMI 26.9
[2020-10-02 07:32] LABS: Mean Corp Hgb Conc 29.6 g/dL (32-36); Mean Corpuscular Volume 101.1 fL (80-94); Mean Platelet Vol. 10.3 fl (6.2-12.0); Platelet Count 298 K/mm3 (150-450); RBC Distribution Width CV 14.7 % (11.6-14.6); RBC Distribution Width SD 55.1 fl (35.1-43.9); Red Blood Count 2.67 M/mm3 (4.6-6.2); White Blood Count 6.6 K/mm3 (4.4-11.0)
[2020-10-02 07:39] LABS: Protein, Urine (Random) 145.2 mg/dL (<11.9); Protein:Creat Ratio 2170 mg/g CRE (0-200)
[2020-10-02 07:52] LABS: Albumin, Serum 2.2 g/dL (3.2-5.0); BUN 30 mg/dL (7-18); BUN/Creat Ratio 16.9 RATIO (10-20); Calcium,Total 9.2 mg/dL (8.5-10.1); Chloride 106 mmol/L (98-107); Creatinine, Serum 1.78 mg/dL (0.70-1.30); EST Glomerular Filtration Rate 40 mL/min (>60); Est Glom Filt Rate - Afr Amer 49 mL/min (>60); Glucose 148 mg/dL (74-106); Phosphorus 3.5 mg/dL (2.5-4.9); Potassium 4.6 mmol/L (3.5-5.1); Sodium Level 137 mmol/L (136-145)
== END ==
PROVIDERS: PCP Internal Medicine; Referring Provider Internal Medicine Nephrology; Visit Provider Internal Medicine Nephrology
DX: N18.30 Chronic kidney disease, stage 3 unspecified (principal); R80.9 Proteinuria, unspecified
CPT/HCPCS: 36415; 80069; 82570; 84156; 85027

== ENCOUNTER → 2020-10-23 06:34 | Outpatient (CLI) | payer MEDICARE, SELFPAY ==
[2020-09-19 08:04] VITALS: BMI 26.9
[2020-10-23 07:51] LABS: Albumin, Serum 2.7 g/dL (3.2-5.0); BUN 23 mg/dL (7-18); Calcium,Total 9.1 mg/dL (8.5-10.1); Chloride 108 mmol/L (98-107); Creatinine, Serum 1.53 mg/dL (0.70-1.30); EST Glomerular Filtration Rate 48 mL/min (>60); Est Glom Filt Rate - Afr Amer 58 mL/min (>60); Glucose 158 mg/dL (74-106); Phosphorus 3.3 mg/dL (2.5-4.9); Potassium 4.1 mmol/L (3.5-5.1); Sodium Level 139 mmol/L (136-145)
== END ==
PROVIDERS: PCP Internal Medicine; Referring Provider Internal Medicine Nephrology
DX: N17.9 Acute kidney failure, unspecified (principal); N18.30 Chronic kidney disease, stage 3 unspecified
CPT/HCPCS: 36415; 80069

== ENCOUNTER → 2020-11-18 09:06 | Outpatient (CLI) | payer MEDICARE, SELFPAY ==
[2020-09-19 08:04] VITALS: BMI 26.9
[2020-11-18 10:43] LABS: Albumin, Serum 3.3 g/dL (3.2-5.0); BUN 33 mg/dL (7-18); Calcium,Total 9.3 mg/dL (8.5-10.1); Chloride 105 mmol/L (98-107); Creatinine, Serum 1.74 mg/dL (0.70-1.30); EST Glomerular Filtration Rate 41 mL/min (>60); Est Glom Filt Rate - Afr Amer 50 mL/min (>60); Glucose 158 mg/dL (74-106); Potassium 4.2 mmol/L (3.5-5.1); Sodium Level 138 mmol/L (136-145)
== END ==
PROVIDERS: PCP Internal Medicine; Referring Provider Internal Medicine Nephrology; Visit Provider Internal Medicine Nephrology
DX: N17.9 Acute kidney failure, unspecified (principal)
CPT/HCPCS: 36415; 80069

== ENCOUNTER → 2020-11-26 11:03 | Outpatient (CLI) | payer MEDICARE, SELFPAY ==
[2020-09-19 08:04] VITALS: BMI 26.9
[2020-11-26 13:10] LABS: Protein, Urine (Random) 44.6 mg/dL (<11.9); Protein:Creat Ratio 602 mg/g CRE (0-200)
== END ==
PROVIDERS: PCP Internal Medicine; Visit Provider Internal Medicine Nephrology
DX: R80.9 Proteinuria, unspecified (principal)
CPT/HCPCS: 82570; 84156

== ENCOUNTER 2020-12-10 09:40 | Outpatient (RCR) | payer MEDICARE, SELFPAY ==
[2020-09-19 08:04] VITALS: BMI 26.9
[2020-12-10] MEDS: COVID-19 VACC, MRNA(PFIZER)/PF 30 MCG/0.3 ML SYRINGE IM (07:44)
[2020-12-31] MEDS: COVID-19 VACC, MRNA(PFIZER)/PF 30 MCG/0.3 ML SYRINGE IM (07:31)
== END 2021-03-11 23:59 ==
LOC: IMMUN 09:40
PROVIDERS: PCP Internal Medicine; Visit Provider Family Medicine
DX: Z23 Encounter for immunization (principal)
CPT/HCPCS: 0001A; 0002A; 91300

== ENCOUNTER → 2021-02-25 05:58 | Outpatient (CLI) | payer MEDICARE, SELFPAY ==
[2020-09-19 08:04] VITALS: BMI 26.9
[2021-02-25 06:54] LABS: Protein, Urine (Random) 27.4 mg/dL (<11.9); Protein:Creat Ratio 457 mg/g CRE (0-200)
[2021-02-25 07:13] LABS: Albumin, Serum 3.3 g/dL (3.2-5.0); BUN 25 mg/dL (7-18); Calcium,Total 9.1 mg/dL (8.5-10.1); Chloride 106 mmol/L (98-107); Creatinine, Serum 1.56 mg/dL (0.70-1.30); EST Glomerular Filtration Rate 47 mL/min (>60); Est Glom Filt Rate - Afr Amer 57 mL/min (>60); Glucose 155 mg/dL (74-106); Phosphorus 3.3 mg/dL (2.5-4.9); Potassium 4.4 mmol/L (3.5-5.1); Sodium Level 141 mmol/L (136-145)
== END ==
PROVIDERS: PCP Internal Medicine; Referring Provider Internal Medicine Nephrology; Visit Provider Internal Medicine Nephrology
DX: N18.30 Chronic kidney disease, stage 3 unspecified (principal); R80.9 Proteinuria, unspecified
CPT/HCPCS: 36415; 80069; 82570; 84156

== ENCOUNTER 2021-09-12 14:01 | Inpatient (IN) | payer MEDICARE, SELFPAY ==
[2021-09-12] VITALS (16 sets, daily range): BP systolic 151–177; BP diastolic 60–81; PULSE 84–98; RESP 18–28; TEMP 36.8–39.7; O2SAT 91–94; BMI 30.2; BMI 29.5
--- NOTE | 2021-09-12 14:40 | EKG12_ITS ---
Test Reason : CONFUSION Blood Pressure : / mmHG Vent. Rate : 082 BPM Atrial Rate : 082 BPM P-R Int : 142 ms QRS Dur : 096 ms QT Int : 344 ms P-R-T Axes : 035 037 037 degrees QTc Int : 401 ms Normal sinus rhythm Inferior infarct , age undetermined Abnormal ECG Confirmed by ELISHA STRICKLAND, PHILIPPE ([id number]), magazine editor IZAIAH BROWNING ([id number]) on 09/15/2021 9:37:42 AM Referred By: DARWIN/CHRISTINA Confirmed By:PHILIPPE TELLO MD
--- NOTE | 2021-09-12 14:50 | RAD_ITS ---
STUDY: X-RAY CHEST REASON FOR EXAM: Male, 71 years old. FEVER TECHNIQUE: Single AP portable view of the chest. COMPARISON: None. FINDINGS: EKG electrodes are seen. Bibasilar pulmonary infiltrates more prominent at the right lung base. There is no demonstrated pleural abnormality. Normal size heart. Normal mediastinum and blake. Normal visualized pulmonary arteries. There is atherosclerotic tortuosity of the aortic arch and descending thoracic aorta. There are diffuse degenerative changes of the visualized thoracic spine. Metallic anchors are seen overlying the right shoulder suggests rotator cuff surgery. There is no demonstrated abnormality of the visualized soft tissue structures of the upper abdomen. RAD/Chest 1 View (Portable) IMPRESSION: Bibasilar pulmonary infiltrates worse on the right side. Electronically Signed: Nicanor Thomas MD at 15:02 EST , Service support ,
[2021-09-12 15:07] LABS: Absolute Lymphocyte Count 1.58 X10^3/uL (0.83-4.51); Absolute Neutrophil Count 0.6 X10^3/uL (2.0-7.7); Basophil# 0.02 X10^3/uL; Basophil% 0.8 % (0-1); Hematocrit 47.8 % (40-54); Hemoglobin 16.4 g/dL (13.0-16.5); Lymphocyte # 1.58 X10^3/ul (0.83-4.51); Lymphocyte % 59.4 % (19-41); Mean Corp Hgb Conc 34.3 g/dL (32-36); Mean Corpuscular Hgb 33.3 pg (27.0-32.0); Mean Corpuscular Volume 97.2 fL (80-94); Mean Platelet Vol. 13.6 fl (6.2-12.0); Monocyte# 0.48 X10^3/uL; NRBC Flagged by Analyzer 0 % (0-5); Neutrophil # 0.57 X10^3/uL (2.7-7.7); Neutrophil % 21.4 % (47-70); POSITIVE COUNT YES; POSITIVE DIFFERENTIAL YES; Platelet Count 108 K/mm3 (150-450); RBC Distribution Width CV 12.3 % (11.6-14.6); RBC Distribution Width SD 44.6 fl (35.1-43.9); Red Blood Count 4.92 M/mm3 (4.6-6.2); White Blood Count 2.7 K/mm3 (4.4-11.0)
--- NOTE | 2021-09-12 15:12 | EDS_ITS ---
HPI History of Present Illness Chief Complaint: Confusion Detail of Chief Complaint: Confusion that patient woke up with this morning. Informant: family Narrative Narrative: Patient presents to the emergency department with increased confusion that was noted by his this morning. Patient history comes from his son who is with him currently. The son states that patient's had a chest cold for about a week. Son-in-law spoke with him couple of days ago and he seemed fine. He went over around noon today and patient was not following commands like normal and seemed confused. Patient denies head or chest pain. Patient denies abdom inal pain. EMS noted that patient had fever up to 104 and also had an O2 sat of 88%. Patient has had his Covid vaccine and booster. Patient currently being treated for leukemia and finished chemo 1 month ago although he takes an oral chemo medicine as well. Prior similar symptoms: No PFSH PFSH Medical History (Updated 09/12/21 @ 16:[address] Derek Prakash, ) Cholecystectomy planned HTN (hypertension) Leukemia Home Medications gabapentin 600 mg PO TIDCM 01/29/19 [History Last Taken 09/19/20] polyethylene glycol 3350 [Miralax] 119 g PO DAILY 01/29/19 [History Last Taken Unknown] sildenafil [Viagra] 100 mg PO PRN PRN 01/29/19 [History Last Taken Unknown] carboxymethylcellulose sodium 15 ml OP 4X/DAY 07/19/20 [History Last Taken 09/19/20] latanoprost 1 drp EACH EYE QHS 09/19/20 [History Last Taken 09/18/20] omega-3 fatty acids-fish oil 3 ea PO DAILY 09/19/20 [History Last Taken 09/19/20] Allergy/AdvReac Type Severity Reaction Status Date / Time No Known Allergies Allergy Verified 09/12/21 14:07 Social History Smoking Status: Former smoker ROS ROS ED ROS Narrative Confusion Constitutional Constitutional ED: Reports systems reviewed and no addt'l complaints, except as documented and fever(s); Denies body ache(s), change in weight or chills Eyes Eyes: Denies acute decrease in peripheral vision, change in vision, double vision or loss of vision ENT ENT ED: Reports none; Denies ear pain, lip swelling, loss taste/smell, neck pain, otalgia or sore throat Cardiovascular Cardiovascular: Reports none; Denies abdominal pain, chest pain with activity, leg edema, lightheadedness, palpitations, rapid heart rate or syncope Respiratory/Chest Respiratory/Chest: Reports none and cough; Denies change in mental status, dry cough, dyspnea, hemoptysis, shortness of breath at rest or shortness of breath with exertion Gastrointestinal Gastrointestinal: Reports none; Denies abdominal pain, change in stool character, diarrhea, hematemesis, hematochezia, melena, rectal bleeding or vomiting Genitourinary Genitourinary ED: Reports none; Denies abdominal discomfort, anuria, dysuria, genital pain or polyuria Musculoskeletal Musculoskeletal: Reports none; Denies arthralgias, back pain, difficulty walking, extremity pain, muscle weakness or myalgias Integumentary Reports none; Denies abscess or rash Neurologic Neurologic: Reports none; Denies abnormal gait, confusion, focal weakness, frequent falls, headache(s), loss of vision, numbness, paresthesias, radicular pain, vertigo or weakness Psychiatric Psychiatric: Reports systems reviewed and no addt'l complaints, except as documented and none; Denies behavioral changes, confusion, difficulty concentrating, hallucinations, suicidal ideation, tactile hallucinations or visual hallucinations Endocrine Endocrinology: Denies none, cold intolerance, excessive sweating, fatigue or heat intolerance Hematologic/Lymphatic Hematologic/Lymphatic: Reports none; Denies anemia, easy bleeding or easy bruising Allergic/Immunologic Allergic/Immunologic ED: Denies as per HPI, none, lip swelling, mouth swelling, throat swelling, tongue swelling or hives EXAM Physical Exam Const Vital Signs: 09/12/21 14:03 09/12/21 14:07 09/12/21 14:08 Temperature 100.2 F H 100.2 F H Temperature Source Temporal Temporal Pulse Rate 84 84 Respiratory Rate 24 H 24 H Blood Pressure 171/72 H 171/72 H Blood Pressure Mean 105 105 Pulse Ox 91 91 Oxygen Delivery Method Nasal Cannula Nasal Cannula Oxygen Flow Rate (L/min) 3 3 09/12/21 15:01 09/12/21 15:07 09/12/21 15:09 Temperature 100.1 F H Temperature Source Temporal Pulse Rate 90 90 Respiratory Rate 28 H 28 H Blood Pressure 176/79 H 176/79 H Blood Pressure Mean 111 111 Pulse Ox 91 91 92 Oxygen Delivery Method Nasal Cannula Nasal Cannula Nasal Cannula Oxygen Flow Rate (L/min) 3 3 3 09/12/21 15:36 Temperature 102.3 F H Temperature Source Temporal Pulse Rate Respiratory Rate Blood Pressure Blood Pressure Mean Pulse Ox Oxygen Delivery Method Oxygen Flow Rate (L/min) Positive well nourished and well developed General Appearance ED: well developed and NAD HEENT Reports TM's clear and moist mucous membranes normocephalic and atraumatic; Negative for trauma or tenderness Tympanic Membrane ED: Yes TM's clear Eyes PERRL and EOMs intact bilaterally General Eye ED: Negative for pale conjunctiva or scleral icterus Neck no lymphadenopathy, supple and no JVD General: Negative for tenderness Chest Wall inspection of chest normal and palpation of chest normal Chest: Negative for tenderness Resp normal respiratory effort and clear to auscultation bilaterally Effort and Inspection: Negative for respiratory distress or pain with movement Auscultation: Negative for rhonchi, wheezes or diminished lung sounds Cardio regular rate, regular rhythm, S1 normal heart sound, S2 normal heart sound and no murmurs Peripheral Pulses: pulses 2+ throughout GI normal to inspection, nondistended, normoactive bowel sounds, soft to palpation, non-tender, non-distended and no masses Back/Spine no CVA tenderness and no thoracic nor lumbar tenderness Extremity normal to inspection General Extremety ED: Negative for edema General Extremity: Negative for edema Neuro CN's II-XII intact bilaterally, no sensory deficits noted and gait normal Neuro Narrative: No focal deficits noted on exam. Patient answers only some questions and not all. Moves both upper extremities without difficulty. He would not lift his legs up off the bed however. No facial droop noted. Sensorium / Orientation: awake, alert, oriented to person, oriented to place and oriented to time Motor Exam: strength 5/5 throughout and strength abnormal Psych mental status grossly normal Skin no rashes or lesions noted and no wounds MDM MDM MDM Narrative Medical decision making narrative: IV line established on arrival. Patient was given rectal Tylenol. Patient was noted to have COVID-19. On x-ray also patient noted to have bilateral infiltrates and before the Covid test returned I did start patient on Rocephin and Zithromax. Blood cultures ordered and will be pending. Patient also had an ABG ordered and will be pending. Discussed case with hospitalist will evaluate patient for admission Lab Data Attestation: I reviewed the patient's lab results. Labs: Laboratory Results - last 24 hr 09/12/21 09/12/21 09/12/21 14:06 14:06 14:06 WBC 2.7 L RBC 4.92 Hgb 16.4 Hct 47.8 MCV 97.2 H MCH 33.3 H MCHC 34.3 RDW Std Deviation 44.6 H RDW Coeff of Zarina 12.3 Plt Count 108 L MPV 13.6 H Immature Gran % (Auto) 0.400 Neut % (Auto) 21.4 L Lymph % (Auto) 59.4 H [place] % (Auto) 18.0 H Eos % (Auto) 0.0 Baso % (Auto) 0.8 Absolute Neuts (auto) 0.6 L Absolute Lymphs (auto) 1.58 Nucleated RBC % 0 Differential Comment SCANNED Sodium 136 Potassium 5.8 H Chloride 106 Carbon Dioxide 22.0 Anion Gap 8 BUN 27 H Creatinine 1.87 H Estim Creat Clear Calc 33.87 Est GFR (MDRD) Af Amer 46 L Est GFR (MDRD) Non-Af 38 L BUN/Creatinine Ratio 14.4 Glucose 190 H Lactic Acid 1.5 Calcium 9.3 Total Bilirubin 0.90 AST 52 H ALT 38 Alkaline Phosphatase 91 Troponin I High Sens Total Protein 8.0 Albumin 3.0 L Globulin 5.0 H Albumin/Globulin Ratio 0.6 L 09/12/21 14:06 WBC RBC Hgb Hct MCV MCH MCHC RDW Std Deviation RDW Coeff of Zarina Plt Count MPV Immature Gran % (Auto) Neut % (Auto) Lymph % (Auto) [place] % (Auto) Eos % (Auto) Baso % (Auto) Absolute Neuts (auto) Absolute Lymphs (auto) Nucleated RBC % Differential Comment Sodium Potassium Chloride Carbon Dioxide Anion Gap BUN Creatinine Estim Creat Clear Calc Est GFR (MDRD) Af Amer Est GFR (MDRD) Non-Af BUN/Creatinine Ratio Glucose Lactic Acid Calcium Total Bilirubin AST ALT Alkaline Phosphatase Troponin I High Sens 12 Total Protein Albumin Globulin Albumin/Globulin Ratio Radiography Diagnostic Testing: Clinical Impression(s) from Imaging Studies Chest X-Ray 09/12/21 14:50 IMPRESSION: Bibasilar pulmonary infiltrates worse on the right side. Electronically Signed: Nicanor Thomas MD at 15:02 EST , Service support , 1 view chest x-ray obtained interpreted by myself as bilateral lower lobe infiltrates. Radiology in agreement. EKG Initial EKG: Attestation: I personally reviewed and interpreted this EKG as follows: Comments: Sinus rhythm with a ventricular rate of 82 bpm with old inferior infarct noted. Discharge Plan Triage Chief Complaint: Confusion ED Provider: Derek Prakash Dx/Rx/DC Orders Clinical Impression: COVID-19, Encephalopathy, Hypoxemia, Acute renal insufficiency, Weakness Prescriptions: No Action gabapentin 600 MG tablet 600 mg PO TIDCM RF: 0 sildenafil [Viagra] 100 MG tablet 100 mg PO PRN PRN (Reason: ERECTILE DYSFUNCTION) RF: 0 polyethylene glycol 3350 [Miralax] 119 GM Powder 119 g PO DAILY RF: 0 carboxymethylcellulose sodium 15 ML drops 15 ml OP 4X/DAY RF: 0 latanoprost 1 DROP bottle 1 drp EACH EYE QHS RF: 0 omega-3 fatty acids-fish oil 1 EACH capsule 3 ea PO DAILY RF: 0 Primary Care Provider: Francheska Perez Referrals: Francheska Perez MD [Primary Care Provider] -
[2021-09-12 15:25] LABS: ALB/GLOB Ratio 0.6 RATIO (0.9-2.4); AST(SGOT) 52 U/L (15-37); Alanine Aminotransfer ALT/SGPT 38 U/L (16-61); Alkaline Phosphatase 91 U/L (45-117); Anion Gap 8 (5-15); BUN 27 mg/dL (7-18); BUN/Creat Ratio 14.4 RATIO (10-20); Calcium,Total 9.3 mg/dL (8.5-10.1); Chloride 106 mmol/L (98-107); Creatinine, Serum 1.87 mg/dL (0.70-1.30); EST Glomerular Filtration Rate 38 mL/min (>60); Est Glom Filt Rate - Afr Amer 46 mL/min (>60); Estimated Creatinine Clearance 33.87 ml/min; Glucose 190 mg/dL (74-106); Lactic Acid 1.5 mmol/L (0.4-1.9); Potassium 5.8 mmol/L (3.5-5.1); Sodium Level 136 mmol/L (136-145)
[2021-09-12] MEDS: Ceftriaxone 1 GM/50 ML BAG IV (15:36)
[2021-09-12] MEDS: Acetaminophen 650 MG Suppository RC ×2 (15:36→21:14)
[2021-09-12 15:41] LABS: Troponin-I HS 12 pg/mL (3.0-78.0)
[2021-09-12 15:49] LABS: Differential Indicated SCAN CRITERIA MET
[2021-09-12 15:52] LABS: Differential Comment SCANNED
[2021-09-12 16:10] LABS: Allen Test Positive; Base Excess -4 mmol/L (-2 to +2); Blood Gas Specimen Type ART; O2 Delivery Device Cannula; PO2 49 mmHG (75-100); SITE R Radial; SO2 86 % (95-99); Total Carbon Dioxide 21 mmol/L; pCO2 30.5 mmHg (35-45); pH 7.43 (7.35-7.45)
[2021-09-12] MEDS: dexAMETHasone 4 MG/ML Vial 6 MG IV (16:11)
--- NOTE | 2021-09-12 16:19 | CT_ITS ---
STUDY: CT BRAIN WITHOUT CONTRAST REASON FOR EXAM: Male, 71 years old. encephalopathy RADIATION DOSAGE (If Supplied By Facility): CTDIvol = ( 44.99 ) mGy, DLP = ( 1035.42 ) mGycm TECHNIQUE: Transaxial CT imaging of the brain was performed without administration of intravenous contrast material. Individualized dose optimization techniques were used for this CT. COMPARISON: 09/16/2015 FINDINGS: Normal soft tissue structures. Normal calvarium. Normal size ventricles and extra-axial spaces for the patient''s age. Normal white matter tracts of the cerebral hemispheres. Normal basal ganglia and thalami. Normal brainstem. Normal cerebellum. There is no intracranial hemorrhage. There are no findings of an acute ischemic infarction. Normal visualized paranasal sinuses. CT/Brain/Head without Contrast IMPRESSION: Normal unenhanced CT scan of the brain. Electronically Signed: Alfa Romeo MD at 16:46 EST Tel , Service support ,
--- NOTE | 2021-09-12 16:20 | PCM.HP.STD ---
HPI - General General Date of Admission: 09/12/21 HPI Narrative HUMBERTO LOZANO, is a 71 M who presents with confusion. Son, who does not live with the patient noted the patient had been's confused on Wednesday but today was much more confused and I did not know how to use the TV remote. They are concerned and sent patient to the emergency room for evaluation. Patient was placed on oxygen and was found to have COVID-19. He received dexamethasone as well as ceftriaxone and azithromycin. Patient has been vaccinated for COVID-19 and has had the booster. Patient is confused and unable to find any history. The son is at bedside who provides the history. The son states that the patient is normally very independent and works job currently. [facility] Medical History Cholecystectomy planned HTN (hypertension) Leukemia Home Medications gabapentin 600 mg PO TIDCM 01/29/19 [History Last Taken 09/19/20] sildenafil [Viagra] 100 mg PO PRN PRN 01/29/19 [History Last Taken Unknown] carboxymethylcellulose sodium 15 ml OP 4X/DAY 07/19/20 [History Last Taken 09/19/20] latanoprost 1 drp EACH EYE QHS 09/19/20 [History Last Taken 09/18/20] omega-3 fatty acids-fish oil 3 ea PO DAILY 09/19/20 [History Last Taken 09/19/20] amlodipine [Norvasc] 5 mg PO DAILY 09/12/21 [History Last Taken Unknown] ibrutinib [Imbruvica] 420 mg PO DAILY 09/12/21 [History Last Taken Unknown] Allergy/AdvReac Type Severity Reaction Status Date / Time No Known Allergies Allergy Verified 09/12/21 14:07 Family History unable to obtain unable to obtain (Due to encephalopathy) Surgical History unable to obtain unable to obtain (Due to encephalopathy) Social History Smoking Status: Former smoker ROS Review of Systems ROS Unobtainable: due to encephalopathy Vital Signs Vital Signs Vital Signs: 09/12/21 14:03 09/12/21 14:07 09/12/21 14:08 Temperature 37.9 C H 37.9 C H Temperature Source Temporal Temporal Pulse Rate 84 84 Respiratory Rate 24 H 24 H Blood Pressure 171/72 H 171/72 H Blood Pressure Mean 105 105 Pulse Ox 91 91 Oxygen Delivery Method Nasal Cannula Nasal Cannula Oxygen Flow Rate (L/min) 3 3 09/12/21 15:01 09/12/21 15:07 09/12/21 15:09 Temperature 37.8 C H Temperature Source Temporal Pulse Rate 90 90 Respiratory Rate 28 H 28 H Blood Pressure 176/79 H 176/79 H Blood Pressure Mean 111 111 Pulse Ox 91 91 92 Oxygen Delivery Method Nasal Cannula Nasal Cannula Nasal Cannula Oxygen Flow Rate (L/min) 3 3 3 09/12/21 15:36 09/12/21 16:00 Temperature 39.1 C H 38.7 C H Temperature Source Temporal Temporal Pulse Rate 93 Respiratory Rate 27 H Blood Pressure 177/81 H Blood Pressure Mean 113 Pulse Ox 92 Oxygen Delivery Method Nasal Cannula Oxygen Flow Rate (L/min) 3 Weight Weight: 87.4 kg Body Mass Index (BMI) 30.2 Physical Exam Const Orientation / Consciousness: confused and lethargic HEENT normocephalic and head/scalp atraumatic HEENT Narrative: Mucous membranes dry Eyes PERRL Neck no lymphadenopathy Resp normal respiratory effort, no retractions, no use of accessory muscles and clear to auscultation bilaterally Cardio regular rate, regular rhythm, S1 normal heart sound and S2 normal heart sound GI normal to inspection, nondistended, normoactive bowel sounds, soft to palpation, non-tender and non-distended Extremity normal to inspection Skin no rashes or lesions noted and no wounds Neuro Neuro Narrative: Does not follow commands appropriately. Globally confused. Peers move all extremities spontaneously. Results Lab / Micro Data Attestation: I reviewed the patient's lab results. Result Diagrams: 09/12/21 14:06 09/12/21 14:06 Labs: Laboratory Results - last 24 hr 09/12/21 14:06: WBC 2.7 L, RBC 4.92, Hgb 16.4, Hct 47.8, MCV 97.2 H, MCH 33.3 H, MCHC 34.3, RDW Std Deviation 44.6 H, RDW Coeff of Zarina 12.3, Plt Count 108 L, MPV 13.6 H, Immature Gran % (Auto) 0.400, Neut % (Auto) 21.4 L, Lymph % (Auto) 59.4 H, [place] % (Auto) 18.0 H, Eos % (Auto) 0.0, Baso % (Auto) 0.8, Absolute Neuts (auto) 0.6 L, Absolute Lymphs (auto) 1.58, Nucleated RBC % 0, Differential Comment SCANNED 09/12/21 14:06: Sodium 136, Potassium 5.8 H, Chloride 106, Carbon Dioxide 22.0, Anion Gap 8, BUN 27 H, Creatinine 1.87 H, Estim Creat Clear Calc 33.87, Est GFR (MDRD) Af Amer 46 L, Est GFR (MDRD) Non-Af 38 L, BUN/Creatinine Ratio 14.4, Glucose 190 H, Calcium 9.3, Total Bilirubin 0.90, AST 52 H, ALT 38, Alkaline Phosphatase 91, Total Protein 8.0, Albumin 3.0 L, Globulin 5.0 H, Albumin/Globulin Ratio 0.6 L 09/12/21 14:06: Lactic Acid 1.5 09/12/21 14:06: Troponin I High Sens 12 Micro: Microbiology 09/12/21 14:34 Mucosa - Nasopharyngeal Influenza Types A,B Direct FA (JOSH) - Final 09/12/21 14:34 Nasal Secretion SARS-CoV-2 Antigen (Rapid) - Final SARS-CoV-2 (COVID 19) ABG Data ABG results: ABG 09/12/21 16:05 Specimen Type ART Sample Site R Radial pH 7.43 Bicarbonate Actual 20.0 L Total CO2 21 Base Excess -4 L O2 Saturation 86 L ABG pCO2 30.5 L ABG pO2 49 L [place] Test Positive O2 Delivery Device Cannula Liter Flow 3.0 Radiology Impression Chest X-Ray 09/12/21 14:50 IMPRESSION: Bibasilar pulmonary infiltrates worse on the right side. Electronically Signed: Nicanor Thomas MD at 15:02 EST , Service support , Assessment & Plan Assessment/Plan (1) COVID-19: (2) Encephalopathy: (3) Acute respiratory failure with hypoxia: PLAN: 1. Metabolic encephalopathy Patient clinically dry as well as sick with COVID-19. ABG was performed and showed PCO2 of 30.5 so no hypercapnia. I feel is related with the patient being clinically dehydrated plus having COVID-19 as well as patient taking gabapentin 600 mg 3 times daily. Plan is supportive and hold any potentiating medications Check head CT to make sure there is no other acute process Check D-dimer. If elevated for age, would not be able to do a CT angiogram given his CKD 3 b, so would recommend therapeutic dosing of enoxaparin if that came to be. 2. Acute hypoxic respiratory failure Secondary to COVID-19 Wean oxygen as able Patient did receive antibiotics in the emergency room. We will hold off on that but will check urine antigens for strep and Legionella as well as sputum culture. 3. Acute COVID-19 pneumonia Patient is vaccinated and boosted according to his son Continue with dexamethasone for total of 10 days No remdesivir given his CKD 4. CKD 3 b Patient clinically dry so I will give him a liter of IV fluids Monitor for now and avoid nephrotoxic agents. 5. Leukemia Follow-up with oncology as outpatient 6. VTE prophylaxis with enoxaparin 7. CODE STATUS: Addressed with the patient's son. Patient is full CODE STATUS. Charges/Coding Visit Charges Inpatient E&M: 29869 Init Hosp L3
[2021-09-12 17:52] LABS: Mucous, Urine 0 SEEN /hpf (<or=2+); Squamous Epithelial Cells - UA 0 SEEN /hpf (0-5); White Blood Cells 0 SEEN /hpf (0-5)
[2021-09-12 18:09] LABS: Color, Urine Yellow (Yellow); Glucose, Dipstick 250 mg/dl (Normal); Ketone-Dipstick 15 mg/dl (Negative); Leukocyte Esterase-Dipstick Negative /ul (Negative); Nitrite-Dipstick Negative (Negative); Occult Blood-Urine 25 /ul (Negative); Protein-Dipstick 100 mg/dl (Negative); Urine Bilirubin Dipstick Negative (Negative); Urine Clarity Clear (Clear); Urine Urobilinogen Normal (Normal)
[2021-09-12 18:15] LABS: Bacteria RARE /hpf (None Seen); Red Blood Cells-Urine 0-5 SEEN /hpf (0-5)
--- NOTE | 2021-09-12 19:58 | PCS.PANDOC ---
PANDEMIC DOCUMENTATION INITIATED: Date: 05/19/2021 Time: 190
[2021-09-12] MEDS: 0.9% Normal Saline 1,000 ML 150 ML IV (20:29)
[2021-09-12 20:51] LABS: D-Dimer Quantitative (DVT/PE) 1.47 FEU/ug/m (0.27-0.49)
--- NOTE | 2021-09-12 20:51 | NURSING ---
Addendum entered by Jonna Delgado 09/12/21 20:54: order for rectal tylenol. Dr. Bandar Cook made aware of d dimer of 1.[address] Cook states he will look it this. Original Note: Pt was not physically able to comprehend to take a sip of water with tylenol.
[2021-09-12] MEDS: Latanoprost 0.005% 1 Bottle 1 DRP EACH EYE (20:53)
[2021-09-12] MEDS: Enoxaparin 30 MG/0.3 ML Syringe SC (20:53)
[2021-09-12] MEDS: Glycerin/Hypromellose/PEG400 15 ml Bottle 1 DRP OPHTHALMIC (20:53)
--- NOTE | 2021-09-12 21:40 | PCM.PN.BLA ---
Progress Note Notified of mildly elevated D-dimer in the setting of Covid pneumonia. D-dimer of 1.47. Of note patient has CKD with potential to going to [facility]. Will avoid CTA at this time. If creatinine remains baseline consider CTPA; and if GFR remains above 30. In the meantime will get ultrasound of bilateral lower extremities.
--- NOTE | 2021-09-12 21:41 | VDLE_ITS ---
Reason For Study: ELEVATED D DIMER 1.47 RIGHT LEFT GSV is normal. GSV is normal. CFV is compressible CFV is compressible FVis compressible FVis compressible POP V is compressible POP V is compressible T/P TRUNK is compressible T/P TRUNK is compressible PTV is compressible PTV is compressible PERV is compressible. PERV is compressible. Procedure This is a venous duplex using B-mode, color flow and spectral Doppler. Exam performed portable in patient room. The exam was abbreviated due to the COVID 19 protocol. A preliminary report was called and/or faxed to [facility]. VL/Venous Duplex US - [place] Extrem Interpretation Summary No evidence for acute deep venous thrombosis bilateral lower extremities with p atent and compressible bilateral great saphenous veins. COVID-19 protocol utilized Ordering Physician: Christiano Cook Referring Physician: Francheska Perez Performed By: Xi Barragan, IRINA, RVT
[2021-09-12] MEDS: Enoxaparin 100 MG/ML Syringe 85 MG SC (23:04)
[2021-09-12] MEDS: 0.9% Saline Lock 10 ML Syringe IV (23:10)
[2021-09-13] VITALS (8 sets, daily range): BP systolic 124–157; BP diastolic 58–79; PULSE 58–80; RESP 18–20; TEMP 36.5–36.9; O2SAT 92–96
[2021-09-13 07:31] LABS: Absolute Neutrophil Count 3.6 X10^3/uL (2.0-7.7); Basophil# 0.05 X10^3/uL; Hematocrit 43.7 % (40-54); Hemoglobin 14.5 g/dL (13.0-16.5); Lymphocyte % 15.8 % (19-41); Mean Corp Hgb Conc 33.2 g/dL (32-36); Mean Corpuscular Hgb 32.6 pg (27.0-32.0); Mean Corpuscular Volume 98.2 fL (80-94); Monocyte# 0.54 X10^3/uL; Monocyte% 10.7 % (0-10); NRBC Flagged by Analyzer 0 % (0-5); Neutrophil # 3.58 X10^3/uL (2.7-7.7); Neutrophil % 70.5 % (47-70); POSITIVE MORPHOLOGY YES; Platelet Count 102 K/mm3 (150-450); RBC Distribution Width CV 12.2 % (11.6-14.6); RBC Distribution Width SD 44.5 fl (35.1-43.9); Red Blood Count 4.45 M/mm3 (4.6-6.2); White Blood Count 5.1 K/mm3 (4.4-11.0)
[2021-09-13 08:02] LABS: ALB/GLOB Ratio 0.5 RATIO (0.9-2.4); AST(SGOT) 26 U/L (15-37); Alanine Aminotransfer ALT/SGPT 32 U/L (16-61); Albumin, Serum 2.4 g/dL (3.2-5.0); Alkaline Phosphatase 61 U/L (45-117); Anion Gap 8 (5-15); BUN 31 mg/dL (7-18); BUN/Creat Ratio 16.1 RATIO (10-20); Calcium,Total 8.2 mg/dL (8.5-10.1); Chloride 107 mmol/L (98-107); Creatinine, Serum 1.92 mg/dL (0.70-1.30); EST Glomerular Filtration Rate 37 mL/min (>60); Est Glom Filt Rate - Afr Amer 45 mL/min (>60); Estimated Creatinine Clearance 32.99 ml/min; Globulin 4.4 g/dL (2.2-4.2); Glucose 296 mg/dL (74-106); Potassium 4.7 mmol/L (3.5-5.1); Protein, Total 6.8 g/dL (6.4-8.2); Sodium Level 138 mmol/L (136-145)
[2021-09-13 08:18] LABS: Differential Indicated SCAN CRITERIA MET
[2021-09-13 10:20] LABS: Differential Comment SCANNED
[2021-09-13] MEDS: Glycerin/Hypromellose/PEG400 15 ml Bottle 1 DRP OPHTHALMIC ×4 (10:58→19:57)
[2021-09-13] MEDS: dexAMETHasone 10 MG/ML Vial 6 MG IV (11:00)
[2021-09-13] MEDS: Enoxaparin 100 MG/ML Syringe 85 MG SC (11:01)
[2021-09-13] MEDS: 0.9% Saline Lock 10 ML Syringe IV (11:31)
[2021-09-13] MEDS: Acetaminophen 325 MG Tablet 650 MG PO ×2 (12:47→23:56)
--- NOTE | 2021-09-13 12:50 | CASEMGMT ---
JOY GUZMAN Assessment: Face to Face with pt for initial transition planning/care coordination assessment. JOY GUZMAN introduced self and role at [facility], pt voices understanding and consents to assessment. Pt is A/O x4 and answers all questions appropriately at this time. Pt is [place] and sitting up in chair with O2 on in no distress. Care providers, pharmacy, and demographics verified/updated. Admitting Dx: COVID 19, hypoxia, encephalopathy PCP:Chris Specialists:[facility] Pharmacy:[facility] Insurance: [facility] Prescription Benefit: yes LW/HPOA: Pt states he has a LW/DPOA and his DPOA is his son German Solorzano. He is aware that it is not on file at [facility] and he may have it brought in to be scanned into his chart. Living Arrangements: Pt lives and son Sushil Solorzano in a single story house with one step to enter with a rail. Pt reports he is I in ADL's and denies concerns at home. Transportation: Pt drives self and denies concerns with transportation. DME/HHC/SNF: Pt denies having any DME in the home. Recommended pt obtain a pulse ox from local pharmacy. Pt denies hx of HHC or SNF stays. Pt states he was first tested for COVID at [facility]. He states his son and were tested yesterday but he is unaware of the results. Pt is able to quarantine from them using separate bedrooms and bathrooms. Pt has family who can provide him with groceries and supplies. Discussed local in network DME companies should pt need home O2, pt denies preference. Pt states no concerns with going home at time of dc. 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 Pt states no further concerns/needs. CM to follow. Advised pt to ask CM if any further question/concerns/needs arise, voices understanding. Pt Goal: Home Plan: Home
--- NOTE | 2021-09-13 13:44 | PN.HOSP_ITS ---
Subjective Subjective Feels well at present. Objective Data Objective Data Vital Signs: Vital Signs Temp Pulse Resp BP Pulse Ox 36.9 C 80 18 133/71 H 93 09/13/21 11:14 09/13/21 11:14 09/13/21 11:14 09/13/21 11:14 09/13/21 11:14 Oxygen Flow Rate (L/min) 4 Oxygen Delivery Method Nasal Cannula Weight: 85.417 kg Body Mass Index (BMI) 29.5 Intake & Output: Intake and Output for Last 24 Hours 09/11/21 09/12/21 09/13/21 23:59 23:59 23:59 Intake Total 305 / 305 1000 / 1000 Output Total 50 / 250 650 / 650 Balance 255 / 55 350 / 350 Lab / Micro Data Result Diagrams: 09/13/21 06:45 09/13/21 06:45 Labs: Laboratory Results - last 24 hr 09/12/21 14:06: WBC 2.7 L, RBC 4.92, Hgb 16.4, Hct 47.8, MCV 97.2 H, MCH 33.3 H, MCHC 34.3, RDW Std Deviation 44.6 H, RDW Coeff of Zarina 12.3, Plt Count 108 L, MPV 13.6 H, Immature Gran % (Auto) 0.400, Neut % (Auto) 21.4 L, Lymph % (Auto) 59.4 H, [place] % (Auto) 18.0 H, Eos % (Auto) 0.0, Baso % (Auto) 0.8, Absolute Neuts (auto) 0.6 L, Absolute Lymphs (auto) 1.58, Nucleated RBC % 0, Differential Comment SCANNED 09/12/21 14:06: Sodium 136, Potassium 5.8 H, Chloride 106, Carbon Dioxide 22.0, Anion Gap 8, BUN 27 H, Creatinine 1.87 H, Estim Creat Clear Calc 33.87, Est GFR (MDRD) Af Amer 46 L, Est GFR (MDRD) Non-Af 38 L, BUN/Creatinine Ratio 14.4, Glucose 190 H, Calcium 9.3, Total Bilirubin 0.90, AST 52 H, ALT 38, Alkaline Phosphatase 91, Total Protein 8.0, Albumin 3.0 L, Globulin 5.0 H, Albumin/Globulin Ratio 0.6 L 09/12/21 14:06: Lactic Acid 1.5 12/10/21 14:06: Troponin I High Sens 12 09/12/21 14:34: D-Dimer Quant (PE/DVT) 1.47 H* 09/12/21 17:45: Urine Color Yellow, Urine Clarity Clear, Urine pH 6.0, Ur Specific [place] 1.020, Urine Protein 100 H, Urine Glucose (UA) 250 H, Urine Ketones 15 H, Urine Occult Blood 25 H, Urine Nitrite Negative, Urine Bilirubin Negative, Urine Urobilinogen Normal, Ur Leukocyte Esterase Negative, Urine RBC 0-5 SEEN, Urine WBC 0 SEEN, Ur Squamous Epith Cells 0 SEEN, Urine Bacteria RARE, Urine Mucus 0 SEEN 09/13/21 06:45: WBC 5.1, RBC 4.45 L, Hgb 14.5, Hct 43.7, MCV 98.2 H, MCH 32.6 H, MCHC 33.2, RDW Std Deviation 44.5 H, RDW Coeff of Zarina 12.2, Plt Count 102 L, MPV 13.0 H, Immature Gran % (Auto) 2.000 H, Neut % (Auto) 70.5 H, Lymph % (Auto) 15.8 L, [place] % (Auto) 10.7 H, Eos % (Auto) 0.0, Baso % (Auto) 1.0, Absolute Neuts (auto) 3.6, Absolute Lymphs (auto) 0.80 L, Nucleated RBC % 0, Differential Comment SCANNED 09/13/21 06:45: Sodium 138, Potassium 4.7, Chloride 107, Carbon Dioxide 23.0, Anion Gap 8, BUN 31 H, Creatinine 1.92 H, Estim Creat Clear Calc 32.99, Est GFR (MDRD) Af Amer 45 L, Est GFR (MDRD) Non-Af 37 L, BUN/Creatinine Ratio 16.1, Glucose 296 H, Calcium 8.2 L, Total Bilirubin 1.00, AST 26, ALT 32, Alkaline Phosphatase 61, Total Protein 6.8, Albumin 2.4 L, Globulin 4.4 H, Albumin/Globulin Ratio 0.5 L Micro: Microbiology 09/12/21 21:13 Urine, Clean Catch Legionella Antigen - Final 09/12/21 21:13 Urine, Clean Catch Streptococcus pneumoniae Antigen (M - Final 09/12/21 14:34 Mucosa - Nasopharyngeal Influenza Types A,B Direct FA (JOSH) - Final 09/12/21 14:34 Nasal Secretion SARS-CoV-2 Antigen (Rapid) - Final SARS-CoV-2 (COVID 19) ABG Data ABG results: ABG 09/12/21 16:05 Specimen Type ART Sample Site R Radial pH 7.43 Bicarbonate Actual 20.0 L Total CO2 21 Base Excess -4 L O2 Saturation 86 L ABG pCO2 30.5 L ABG pO2 49 L [place] Test Positive O2 Delivery Device Cannula Liter Flow 3.0 Radiography Diagnostic Testing: Radiology Impression Chest X-Ray 09/12/21 14:50 IMPRESSION: Bibasilar pulmonary infiltrates worse on the right side. Electronically Signed: Nicanor Thomas MD at 15:02 EST , Service support , Brain CT 09/12/21 16:19 IMPRESSION: Normal unenhanced CT scan of the brain. Electronically Signed: Alfa Romeo MD at 16:46 EST Tel , Service support , Physical Exam Const alert, oriented x3 and no apparent distress HEENT head/scalp atraumatic and moist oral mucous membranes Head and Scalp: normocephalic Eyes EOMs intact bilaterally Neck no lymphadenopathy and supple Resp normal respiratory effort and no retractions Cardio regular rate, regular rhythm, S1 normal heart sound and S2 normal heart sound GI normal to inspection, nondistended, normoactive bowel sounds, soft to palpation, non-tender and non-distended Extremity normal to inspection Neuro Sensorium / Orientation: awake and alert Assessment & Plan Assessment/Plan (1) COVID-19: (2) Encephalopathy: (3) Acute respiratory failure with hypoxia: PLAN: 1. Metabolic encephalopathy resolved Likely multifactorial: Patient clinically dry as well as sick with COVID-19 and gabapentin ABG was performed and showed PCO2 of 30.5 so no hypercapnia. I feel is related with the patient being clinically dehydrated plus having COVID-19 as well as patient taking gabapentin 600 mg 3 times daily. Plan is supportive and hold any potentiating medications head CT negative 2. Acute hypoxic respiratory failure stable Secondary to COVID-19 Wean oxygen as able Patient did receive antibiotics in the emergency room. We will hold off on that but will check urine antigens for strep and Legionella as well as sputum culture. 3. Acute COVID-19 pneumonia Patient is vaccinated and boosted according to his son Continue with dexamethasone for total of 10 days No remdesivir given his CKD 4. CKD 3 b Patient clinically dry so I will give him a liter of IV fluids Monitor for now and avoid nephrotoxic agents. 5. Leukemia Follow-up with oncology as outpatient continue ibrutinib 6. VTE prophylaxis with enoxaparin 7. CODE STATUS: Addressed with the patient's son. Patient is full CODE STATUS. 8. Discharge planning: TBD. Monitor labs, await therapy evals. Pt reported no home going needs to CM today. Charges/Coding Visit Charges Inpatient E&M: 29653 Subs Hosp L3
[2021-09-13] MEDS: Latanoprost 0.005% 1 Bottle 1 DRP EACH EYE (20:00)
[2021-09-13] MEDS: MELATONIN 3 MG TABLET PO (23:56)
[2021-09-14] VITALS (18 sets, daily range): BP systolic 117–152; BP diastolic 59–75; PULSE 73–100; RESP 20–32; TEMP 36.5–36.9; O2SAT 87–93
--- NOTE | 2021-09-14 00:07 | PN_ITS ---
Progress Note Notified that pulmonary blood culture showed a positive anaerobic bottle gram- positive cocci. Patient is here for COVID-19 pneumonia. Likely contaminant. Will wait for final blood cultures.
--- NOTE | 2021-09-14 00:07 | PCM.PN.BLA ---
Progress Note Notified that pulmonary blood culture showed a positive anaerobic bottle gram-positive cocci. Patient is here for COVID-19 pneumonia. Likely contaminant. Will wait for final blood cultures.
[2021-09-14] MEDS: 0.9% Saline Lock 10 ML Syringe IV ×3 (02:41→13:10)
[2021-09-14] MEDS: Ondansetron 4 MG/2 ML Vial IV (02:42)
[2021-09-14 08:19] LABS: Absolute Lymphocyte Count 0.36 X10^3/uL (0.83-4.51); Absolute Neutrophil Count 6.5 X10^3/uL (2.0-7.7); Basophil# 0.02 X10^3/uL; Basophil% 0.3 % (0-1); Eosinophil# 0.03 X10^3/uL; Eosinophils% 0.4 % (0-5); Hematocrit 42.3 % (40-54); Hemoglobin 14.7 g/dL (13.0-16.5); Lymphocyte # 0.36 X10^3/ul (0.83-4.51); Lymphocyte % 4.8 % (19-41); Mean Corp Hgb Conc 34.8 g/dL (32-36); Mean Corpuscular Hgb 32.3 pg (27.0-32.0); Mean Platelet Vol. 12.5 fl (6.2-12.0); NRBC Flagged by Analyzer 0 % (0-5); Neutrophil # 6.51 X10^3/uL (2.7-7.7); Neutrophil % 86.9 % (47-70); POSITIVE DIFFERENTIAL YES; POSITIVE MORPHOLOGY YES; Platelet Count 112 K/mm3 (150-450); RBC Distribution Width CV 12.8 % (11.6-14.6); RBC Distribution Width SD 43.6 fl (35.1-43.9); Red Blood Count 4.55 M/mm3 (4.6-6.2); White Blood Count 7.5 K/mm3 (4.4-11.0)
[2021-09-14 08:21] LABS: Differential Indicated SCAN CRITERIA MET
[2021-09-14 08:33] LABS: ALB/GLOB Ratio 0.5 RATIO (0.9-2.4); AST(SGOT) 52 U/L (15-37); Alanine Aminotransfer ALT/SGPT 45 U/L (16-61); Albumin, Serum 2.4 g/dL (3.2-5.0); Alkaline Phosphatase 63 U/L (45-117); Anion Gap 11 (5-15); BUN 36 mg/dL (7-18); BUN/Creat Ratio 20.1 RATIO (10-20); Calcium,Total 8.5 mg/dL (8.5-10.1); Chloride 105 mmol/L (98-107); Creatinine, Serum 1.79 mg/dL (0.70-1.30); EST Glomerular Filtration Rate 40 mL/min (>60); Est Glom Filt Rate - Afr Amer 48 mL/min (>60); Estimated Creatinine Clearance 35.39 ml/min; Glucose 216 mg/dL (74-106); Potassium 4.1 mmol/L (3.5-5.1); Protein, Total 7.4 g/dL (6.4-8.2); Sodium Level 137 mmol/L (136-145)
[2021-09-14] MEDS: Enoxaparin 100 MG/ML Syringe 85 MG SC (08:45)
[2021-09-14] MEDS: dexAMETHasone 10 MG/ML Vial 6 MG IV (08:46)
[2021-09-14] MEDS: amLODIPine 5 MG Tablet PO (08:46)
[2021-09-14 08:48] LABS: Differential Comment SCANNED
[2021-09-14] MEDS: Glycerin/Hypromellose/PEG400 15 ml Bottle 1 DRP OPHTHALMIC ×4 (08:52→20:17)
[2021-09-14] MEDS: IBRUTINIB 140 MG CAPSULE 420 MG PO (11:07)
[2021-09-14] MEDS: Furosemide 40 MG/4 ML Vial IV (13:10)
[2021-09-14] MEDS: Acetaminophen 325 MG Tablet 650 MG PO ×2 (15:07→21:53)
--- NOTE | 2021-09-14 15:13 | PCM.PN.HOSP ---
Subjective Subjective Increased oxygen requirements. Did not sleep well last night. Objective Data Objective Data Vital Signs: Vital Signs Temp Pulse Resp BP Pulse Ox 36.5 C L 88 28 H 148/67 H 93 09/14/21 13:15 09/14/21 13:15 09/14/21 13:15 09/14/21 13:15 09/14/21 13:15 Oxygen Flow Rate (L/min) 10 Oxygen Delivery Method Nasal Cannula Weight: 85.417 kg Body Mass Index (BMI) 29.5 Intake & Output: Intake and Output for Last 24 Hours 09/12/21 09/13/21 09/14/21 23:59 23:59 23:59 Intake Total 305 / 305 1850 / 1850 250 / 250 Output Total 50 / 250 650 / 650 250 / 250 Balance 255 / 55 1200 / 1200 0 / 0 Lab / Micro Data Result Diagrams: 09/14/21 08:09 09/14/21 08:09 Labs: Laboratory Results - last 24 hr 09/14/21 08:09: WBC 7.5, RBC 4.55 L, Hgb 14.7, Hct 42.3, MCV 93.0 D, MCH 32.3 H, MCHC 34.8, RDW Std Deviation 43.6, RDW Coeff of Zarina 12.8, Plt Count 112 L, MPV 12.5 H, Immature Gran % (Auto) 3.600 H, Neut % (Auto) 86.9 H, Lymph % (Auto) 4.8 L, [place] % (Auto) 4.0, Eos % (Auto) 0.4, Baso % (Auto) 0.3, Absolute Neuts (auto) 6.5, Absolute Lymphs (auto) 0.36 L, Nucleated RBC % 0, Differential Comment SCANNED 09/14/21 08:09: Sodium 137, Potassium 4.1, Chloride 105, Carbon Dioxide 21.0, Anion Gap 11, BUN 36 H, Creatinine 1.79 H, Estim Creat Clear Calc 35.39, Est GFR (MDRD) Af Amer 48 L, Est GFR (MDRD) Non-Af 40 L, BUN/Creatinine Ratio 20.1 H, Glucose 216 H, Calcium 8.5, Total Bilirubin 1.10 H, AST 52 H, ALT 45, Alkaline Phosphatase 63, Total Protein 7.4, Albumin 2.4 L, Globulin 5.0 H, Albumin/Globulin Ratio 0.5 L Micro: Microbiology 09/12/21 14:34 Blood Culture (Wb) - Left Hand Blood Culture - Preliminary 09/12/21 21:13 Urine, Clean Catch Legionella Antigen - Final 09/12/21 21:13 Urine, Clean Catch Streptococcus pneumoniae Antigen (M - Final 09/12/21 14:34 Mucosa - Nasopharyngeal Influenza Types A,B Direct FA (JOSH) - Final 09/12/21 14:34 Nasal Secretion SARS-CoV-2 Antigen (Rapid) - Final SARS-CoV-2 (COVID 19) Physical Exam Const alert and no apparent distress HEENT head/scalp atraumatic Head and Scalp: normocephalic Resp normal respiratory effort, no retractions, no use of accessory muscles and clear to auscultation bilaterally Cardio regular rate, regular rhythm, S1 normal heart sound and S2 normal heart sound GI normal to inspection, nondistended, normoactive bowel sounds, soft to palpation, non-tender and non-distended Skin no rashes or lesions noted Assessment & Plan Assessment/Plan (1) COVID-19: (2) Encephalopathy: (3) Acute respiratory failure with hypoxia: PLAN: 1. Metabolic encephalopathy resolved ABG was performed and showed PCO2 of 30.5 so no hypercapnia. I feel is related with the patient being clinically dehydrated plus having COVID-19 as well as patient taking gabapentin 600 mg 3 times daily. Plan is supportive and hold any potentiating medications (i.e., gabapentin) head CT negative 2. Acute hypoxic respiratory failure worse Secondary to COVID-19 Wean oxygen as able Strep and legionella negative. No sputum culture available at this time. as creatinine stable, will administer 1x dose of IV furosemide. Wean oxygen as able. 3. Acute COVID-19 pneumonia Patient is vaccinated and boosted according to his son Continue with dexamethasone for total of 10 days No remdesivir given his CKD 4. CKD 3 b Patient clinically dry so I will give him a liter of IV fluids Monitor for now and avoid nephrotoxic agents. 5. Leukemia Follow-up with oncology as outpatient continue ibrutinib 6. VTE prophylaxis with enoxaparin 7. CODE STATUS: Addressed with the patient's son. Patient is full CODE STATUS. 8. Discharge planning: TBD. Monitor labs, await therapy evals. Pt reported no home going needs to , but I would be concerned he would be as he had loss of balance with PT. Charges/Coding Visit Charges Inpatient E&M: 62692 Subs Hosp L2
[2021-09-14] MEDS: Latanoprost 0.005% 1 Bottle 1 DRP EACH EYE (20:16)
[2021-09-14] MEDS: MELATONIN 3 MG TABLET PO (21:53)
[2021-09-15] VITALS (15 sets, daily range): BP systolic 107–142; BP diastolic 48–75; PULSE 53–71; RESP 20–30; TEMP 36–36.9; O2SAT 89–94
--- NOTE | 2021-09-15 01:29 | NURSING ---
Addendum entered by Gaviota Vanessa 09/15/21 01:34: Patients respiratory status became unstable around 0045. Called RT to inform and she said we needed an order for bipap or airvo, Dr. Portillo was notified at 0100 and new order for STAT CPAP was entered at 0109. Waiting on RT to set it up for the patient., currently sats are 85-86 on 15L of [place], RR is 30 Original Note: Patients respiratory status became unstable around 0045. Called RT to inform and she said I needed an order for bipap or airvo, Dr. Portillo was notified at 0100 and new order for STAT was entered at 0109. Waiting on RT to set it up for the patient., currently sats are 85-86 on 15L of [place], RR is 30.
[2021-09-15] MEDS: Acetaminophen 325 MG Tablet 650 MG PO ×3 (06:55→19:54)
[2021-09-15 07:47] LABS: Absolute Neutrophil Count 5.9 X10^3/uL (2.0-7.7); Basophil# 0.03 X10^3/uL; Basophil% 0.4 % (0-1); Eosinophil# 0.04 X10^3/uL; Eosinophils% 0.6 % (0-5); Hematocrit 45.7 % (40-54); Hemoglobin 15.5 g/dL (13.0-16.5); Lymphocyte % 5.5 % (19-41); Mean Corp Hgb Conc 33.9 g/dL (32-36); Mean Corpuscular Hgb 32.2 pg (27.0-32.0); Monocyte# 0.65 X10^3/uL; NRBC Flagged by Analyzer 0 % (0-5); Neutrophil # 5.94 X10^3/uL (2.7-7.7); Neutrophil % 82.4 % (47-70); POSITIVE DIFFERENTIAL YES; POSITIVE MORPHOLOGY YES; Platelet Count 137 K/mm3 (150-450); RBC Distribution Width CV 12.4 % (11.6-14.6); RBC Distribution Width SD 44.1 fl (35.1-43.9); Red Blood Count 4.81 M/mm3 (4.6-6.2); White Blood Count 7.2 K/mm3 (4.4-11.0)
[2021-09-15 07:51] LABS: Differential Indicated SCAN CRITERIA MET
[2021-09-15 08:16] LABS: ALB/GLOB Ratio 0.5 RATIO (0.9-2.4); AST(SGOT) 34 U/L (15-37); Alanine Aminotransfer ALT/SGPT 47 U/L (16-61); Albumin, Serum 2.5 g/dL (3.2-5.0); Alkaline Phosphatase 63 U/L (45-117); Anion Gap 8 (5-15); BUN 53 mg/dL (7-18); BUN/Creat Ratio 26.5 RATIO (10-20); Calcium,Total 8.6 mg/dL (8.5-10.1); Chloride 103 mmol/L (98-107); EST Glomerular Filtration Rate 35 mL/min (>60); Est Glom Filt Rate - Afr Amer 43 mL/min (>60); Estimated Creatinine Clearance 31.67 ml/min; Globulin 5.3 g/dL (2.2-4.2); Glucose 267 mg/dL (74-106); Potassium 4.1 mmol/L (3.5-5.1); Protein, Total 7.8 g/dL (6.4-8.2); Sodium Level 136 mmol/L (136-145)
[2021-09-15] MEDS: Glycerin/Hypromellose/PEG400 15 ml Bottle 1 DRP OPHTHALMIC ×4 (10:48→19:56)
[2021-09-15] MEDS: dexAMETHasone 10 MG/ML Vial 6 MG IV (10:48)
[2021-09-15] MEDS: amLODIPine 5 MG Tablet PO (10:49)
[2021-09-15] MEDS: Enoxaparin 100 MG/ML Syringe 85 MG SC (10:49)
[2021-09-15] MEDS: IBRUTINIB 140 MG CAPSULE 420 MG PO (10:49)
--- NOTE | 2021-09-15 12:18 | PN.HOSP_ITS ---
Subjective Subjective Patient seen and examined. He was lethargic but responsive and had no complaints. He is on air Vo. Review of systems otherwise negative. Objective Data Objective Data Vital Signs: Vital Signs Temp Pulse Resp BP Pulse Ox 96.9 F L 64 20 H 142/75 H 93 09/15/21 10:57 09/15/21 10:57 09/15/21 10:57 09/15/21 10:57 09/15/21 10:57 Oxygen Flow Rate (L/min) 50 Oxygen Delivery Method Airvo Weight: 188 lb 5 oz Body Mass Index (BMI) 29.5 Intake & Output: Intake and Output for Last 24 Hours 09/13/21 09/14/21 09/15/21 23:59 23:59 23:59 Intake Total 1850 / 1850 650 / 650 Output Total 650 / 650 1150 / 1150 400 / 400 Balance 1200 / 1200 -500 / -500 -400 / -400 Lab / Micro Data Result Diagrams: 09/15/21 07:16 09/15/21 07:16 Labs: Laboratory Results - last 24 hr 09/15/21 07:16: WBC 7.2, RBC 4.81, Hgb 15.5, Hct 45.7, MCV 95.0 H, MCH 32.2 H, MCHC 33.9, RDW Std Deviation 44.1 H, RDW Coeff of Zarina 12.4, Plt Count 137 L, MPV 13.0 H, Immature Gran % (Auto) 2.100 H, Neut % (Auto) 82.4 H, Lymph % (Auto) 5.5 L, [place] % (Auto) 9.0, Eos % (Auto) 0.6, Baso % (Auto) 0.4, Absolute Neuts (auto) 5.9, Absolute Lymphs (auto) 0.40 L, Nucleated RBC % 0 09/15/21 07:16: Sodium 136, Potassium 4.1, Chloride 103, Carbon Dioxide 25.0, Anion Gap 8, BUN 53 H, Creatinine 2.00 H, Estim Creat Clear Calc 31.67, Est GFR (MDRD) Af Amer 43 L, Est GFR (MDRD) Non-Af 35 L, BUN/Creatinine Ratio 26.5 H, Glucose 267 H, Calcium 8.6, Total Bilirubin 1.00, AST 34, ALT 47, Alkaline Phosphatase 63, Total Protein 7.8, Albumin 2.5 L, Globulin 5.3 H, Albumin/Globulin Ratio 0.5 L Micro: Microbiology 09/12/21 14:35 Blood Culture (Wb) - Anticubital Left Blood Culture - Preliminary No growth in 48 hours. 09/12/21 14:34 Blood Culture (Wb) - Left Hand Blood Culture - Preliminary Gram positive maria elena 09/12/21 21:13 Urine, Clean Catch Legionella Antigen - Final 09/12/21 21:13 Urine, Clean Catch Streptococcus pneumoniae Antigen (M - Final 09/12/21 14:34 Mucosa - Nasopharyngeal Influenza Types A,B Direct FA (JOSH) - Final 09/12/21 14:34 Nasal Secretion SARS-CoV-2 Antigen (Rapid) - Final SARS-CoV-2 (COVID 19) Physical Exam Const alert, oriented x3 and no apparent distress Orientation / Consciousness: lethargic Exam Limitations: no limitations HEENT head/scalp atraumatic and moist oral mucous membranes Head and Scalp: normocephalic Eyes PERRL, EOMs intact bilaterally and conjunctivae normal Neck no lymphadenopathy Resp Resp Narrative: Diminished breath sounds bibasilarly. No wheezes or crackles. On air Vo. Cardio regular rate, regular rhythm, S1 normal heart sound, S2 normal heart sound and no murmurs GI normal to inspection, nondistended, normoactive bowel sounds, soft to palpation, non-tender and non-distended Extremity normal to inspection, full ROM and no clubbing, cyanosis or edema Peripheral Pulses: Yes pulses 2+ throughout Skin no rashes or lesions noted Neuro oriented x3, CN's II-XII intact bilaterally and moves all extremities Sensorium / Orientation: awake and alert Psych affect normal Assessment & Plan Assessment/Plan (1) Acute respiratory failure with hypoxia: (2) COVID-19: PLAN: #Acute hypoxic respiratory failure due to covid 19 pneumonia * On arrival with FiO2 of 90% * Titrate oxygen to maintain saturation above 90%. On dexamethasone. * Not given remdesivir due to his CKD. * Patient will benefit from baricitinib so we will consult ID * Will consult pulmonology also as patient is requiring high amounts of oxygen. * #Acute metabolic encephalopathy * Patient remains lethargic but is more responsive. ABGs done did not show any evidence of hypercarbia. * Was on gabapentin which has been held. Will monitor for now. * CT of the head was also negative * #CKD stage III: Stable. Creatinine is 2 with a baseline of around 1.5-1.8. 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 Follow-up with oncology on outpatient basis. DVT prophylaxis: Lovenox Charges/Coding Visit Charges Inpatient E&M: 23292 Subs Hosp L3
--- NOTE | 2021-09-15 14:38 | EX.PCM.CONCC ---
Assessment & Plan Assessment/Plan (1) Acute respiratory failure with hypoxia: (2) COVID-19: PLAN: RECOMMENDATIONS: 1. Wean FiO2 to maintain oxygen saturations at or above 90%. 2. Continue therapeutic Lovenox based upon her renal function. 3. Check procalcitonin, CRP and BNP. 4. Obtain repeat chest x-ray. If infiltrates are worsening, start empiric antimicrobials. 5. Underlying renal insufficiency would preclude the use of diuretics. 6. BiPAP therapy can be utilized as well if needed. 7. Infectious disease consultation for possible baricitinib. IMPRESSIONS: 1. Acute hypoxemic respiratory failure secondary to COVID-19 pneumonia The patient initially presented to the hospital on September 12 with altered mentation was subsequently found to be positive for COVID-19. He has had progressive worsening in his oxygenation status over the course of this hospitalization. D-dimer was elevated at presentation so the patient was placed on therapeutic Lovenox, a CTA chest could not be obtained due to underlying renal insufficiency. Recommend continuing Decadron as ordered. Check BNP, procalcitonin and CRP. In addition, I would obtain a repeat chest x-ray and if infiltrates have worsened, start empiric antimicrobials. Consider ID consultation for possible baricitinib. 2. Acute on chronic kidney disease Likely prerenal in etiology and related to acute presentation. In addition, the patient was given Lasix yesterday with subsequent worsening in his creatinine. Continue to monitor urine output for now. Avoid nephrotoxic medications, including diuretics. 3. Advanced age/hypertension/neuropathy/leukemia Complicates care, management, recovery and prognosis. Continue supportive measures as noted above. This note was generated with [employer] dictation software. It may contain incorrect words, spelling, and punctuation that were not noted in checking the note before signing. HPI Consult Data Date of Consult: 09/16/21 HPI Narrative Reason for Consultation: Acute hypoxemic respiratory failure secondary to COVID-19 pneumonia HPI Narrative: The patient is a 71-year-old male, with a history as outlined below, who presented to the emergency department via EMS on September 12 with altered mentation. The patient is vaccinated against coronavirus. On presentation to the emergency department, the patient was noted to be febrile and tachypneic. D-dimer was noted to be 1.47. Initial chemistry profile was notable for a creatinine of 1.87 and potassium of 5.8. ABG obtained on 3 L/min revealed a pH of 7.43 with a PCO2 of 31 and PO2 of 49. Plain film chest x-ray revealed bibasilar airspace opacities. CT head was unremarkable. The patient was placed on Decadron and Lovenox. He was admitted to the medical surgical floor for further management. Over the course of his hospitalization, the patient's oxygenation status has worsened. He is currently requiring heated high flow with an FiO2 requirement of 90%. Creatinine remains elevated at 2.0. [facility] Medical History Cholecystectomy planned HTN (hypertension) Leukemia Home Medications gabapentin 600 mg PO TIDCM 01/29/19 [History Last Taken 09/19/20] sildenafil [Viagra] 100 mg PO PRN PRN 01/29/19 [History Last Taken Unknown] carboxymethylcellulose sodium 15 ml OP 4X/DAY 07/19/20 [History Last Taken 09/19/20] latanoprost 1 drp EACH EYE QHS 09/19/20 [History Last Taken 09/18/20] omega-3 fatty acids-fish oil 3 ea PO DAILY 09/19/20 [History Last Taken 09/19/20] amlodipine [Norvasc] 5 mg PO DAILY 09/12/21 [History Last Taken Unknown] ibrutinib [Imbruvica] 420 mg PO DAILY 09/12/21 [History Last Taken Unknown] Allergy/AdvReac Type Severity Reaction Status Date / Time No Known Allergies Allergy Verified 09/12/21 14:07 Family History unable to obtain Surgical History unable to obtain Social History Smoking Status: Former smoker ROS Constitutional Constitutional: Reports fever(s), malaise and weakness Eyes Eyes: Denies blurry vision or change in vision ENT HEENT: Denies dizziness or headache(s) Cardiovascular Cardiovascular: Reports dyspnea Respiratory/Chest Respiratory/Chest: Reports cough and dyspnea Gastrointestinal Gastrointestinal: Denies abdominal pain, diarrhea, nausea or vomiting Genitourinary Genitourinary: Denies difficulty urinating Musculoskeletal Musculoskeletal: Denies arthralgias, back pain or joint pain Integumentary Integumentary: Denies lesions, rash or skin ulcer Neurologic Neurologic: Reports confusion Psychiatric Psychiatric: Denies anxiety or depression Endocrine Endocrinology: Reports fatigue Hematologic/Lymphatic Hematologic/Lymphatic: Denies easy bleeding or easy bruising Physical Exam Const alert and no apparent distress Constitutional Narrative: Currently on heated high flow circuit. General Appearance: cooperative HEENT normocephalic and head/scalp atraumatic Eyes PERRL, EOMs intact bilaterally and conjunctivae normal Neck supple General: trachea midline Chest inspection of chest normal Resp no use of accessory muscles Auscultation: diminished lung sounds Cardio regular rate and regular rhythm GI normal to inspection, nondistended, normoactive bowel sounds Extremity no clubbing, cyanosis or edema Skin no rashes or lesions noted Neuro CN's II-XII intact bilaterally, moves all extremities and no focal motor deficits Psych cooperative and affect normal Lab / Micro Data Result Diagrams: 09/15/21 07:16 09/15/21 07:16 Labs: Laboratory Results - last 24 hr 09/15/21 07:16: WBC 7.2, RBC 4.81, Hgb 15.5, Hct 45.7, MCV 95.0 H, MCH 32.2 H, MCHC 33.9, RDW Std Deviation 44.1 H, RDW Coeff of [place] 12.4, Plt Count 137 L, MPV 13.0 H, Immature Gran % (Auto) 2.100 H, Neut % (Auto) 82.4 H, Lymph % (Auto) 5.5 L, [place] % (Auto) 9.0, Eos % (Auto) 0.6, Baso % (Auto) 0.4, Absolute Neuts (auto) 5.9, Absolute Lymphs (auto) 0.40 L, Nucleated RBC % 0 09/15/21 07:16: Sodium 136, Potassium 4.1, Chloride 103, Carbon Dioxide 25.0, Anion Gap 8, BUN 53 H, Creatinine 2.00 H, Estim Creat Clear Calc 31.67, Est GFR (MDRD) Af Amer 43 L, Est GFR (MDRD) Non-Af 35 L, BUN/Creatinine Ratio 26.5 H, Glucose 267 H, Calcium 8.6, Total Bilirubin 1.00, AST 34, ALT 47, Alkaline Phosphatase 63, Total Protein 7.8, Albumin 2.5 L, Globulin 5.3 H, Albumin/Globulin Ratio 0.5 L Micro: Microbiology 09/12/21 14:35 Blood Culture (Wb) - Anticubital Left Blood Culture - Preliminary No growth in 48 hours. 09/12/21 14:34 Blood Culture (Wb) - Left Hand Blood Culture - Preliminary Gram positive maria elena Charges/Coding Visit Charges Inpatient E&M: 02555 Init Hosp L3
--- NOTE | 2021-09-15 15:30 | RAD_ITS ---
STUDY: X-RAY CHEST REASON FOR EXAM: Male, 71 years old. Respiratory Failure TECHNIQUE: AP portable COMPARISON: 09/12/2021 FINDINGS: There is interstitial thickening in the lower lobes and right upper lobe with peripheral areas of increased density which may be consistent with atypical viral pneumonia.. There is no demonstrated pleural abnormality. Normal size heart. Normal mediastinum and blake. Normal visualized pulmonary arteries. Normal visualized aortic arch and descending thoracic aorta. Dorsal spine demonstrates degenerative change. Normal visualized ribs, and left shoulder. There are postsurgical changes of the right shoulder There is no demonstrated abnormality of the visualized soft tissue structures of the upper abdomen. There appears to been very slight improvement in the airspace disease since previous exam RAD/Chest 1 View (Portable) IMPRESSION: Findings which may be consistent with changes of Covid 19 pneumonia more pronounced in the right lung with slight interval improvement since previous study. Clinical correlation recommended.. Electronically Signed: Dario Bower MD at 16:06 EST , Service support ,
[2021-09-15 15:48] LABS: D-Dimer Quantitative (DVT/PE) 1.24 FEU/ug/m (0.27-0.49)
[2021-09-15 16:22] LABS: Procalcitonin 15.28 ng/mL (0.00-0.09)
[2021-09-15] MEDS: Latanoprost 0.005% 1 Bottle 1 DRP EACH EYE (19:56)
[2021-09-15] MEDS: MELATONIN 3 MG TABLET PO (21:25)
[2021-09-15] MEDS: 0.9% Saline Lock 10 ML Syringe IV (21:25)
[2021-09-16] VITALS (24 sets, daily range): BP systolic 124–157; BP diastolic 64–80; PULSE 59–104; RESP 16–32; TEMP 36.6–36.9; O2SAT 85–95
--- NOTE | 2021-09-16 03:04 | EKG12_ITS ---
Test Reason : ARRYTHMIA Blood Pressure : / mmHG Vent. Rate : 138 BPM Atrial Rate : 147 BPM P-R Int : 000 ms QRS Dur : 092 ms QT Int : 274 ms P-R-T Axes : 000 050 043 degrees QTc Int : 415 ms Atrial fibrillation with rapid ventricular response Abnormal ECG When compared with ECG of 18-SEP-2021 18:29, MANUAL COMPARISON REQUIRED, DATA IS UNCONFIRMED Confirmed by ELISHA STRICKLAND, PHILIPPE ([id number]), publications editor IZAIAH BROWNING ([id number]) on 09/23/2021 8:11:59 AM Referred By: WEBBER Confirmed By:PHILIPPE TELLO MD
--- NOTE | 2021-09-16 03:20 | EKG12_ITS ---
Test Reason : CP Blood Pressure : / mmHG Vent. Rate : 060 BPM Atrial Rate : 060 BPM P-R Int : 140 ms QRS Dur : 104 ms QT Int : 406 ms P-R-T Axes : 036 019 030 degrees QTc Int : 406 ms Normal sinus rhythm Normal ECG When compared with ECG of 12-SEP-2021 14:42, No significant change was found Confirmed by ELISHA STRICKLAND, PHILIPPE ([id number]), digital editor IZAIAH BROWNING ([id number]) on 09/23/2021 8:41:09 AM Referred By: Confirmed By:PHILIPPE TELLO MD
[2021-09-16] MEDS: Acetaminophen 325 MG Tablet 650 MG PO ×3 (04:35→17:02)
[2021-09-16 09:13] LABS: Absolute Lymphocyte Count 0.39 X10^3/uL (0.83-4.51); Absolute Neutrophil Count 5.3 X10^3/uL (2.0-7.7); Basophil# 0.03 X10^3/uL; Basophil% 0.5 % (0-1); Hematocrit 46.3 % (40-54); Hemoglobin 15.8 g/dL (13.0-16.5); Lymphocyte # 0.39 X10^3/ul (0.83-4.51); Mean Corp Hgb Conc 34.1 g/dL (32-36); Mean Corpuscular Hgb 32.7 pg (27.0-32.0); Mean Corpuscular Volume 95.9 fL (80-94); Mean Platelet Vol. 13.2 fl (6.2-12.0); Monocyte# 0.54 X10^3/uL; Monocyte% 8.3 % (0-10); NRBC Flagged by Analyzer 0 % (0-5); Neutrophil # 5.33 X10^3/uL (2.7-7.7); Neutrophil % 81.7 % (47-70); POSITIVE DIFFERENTIAL YES; Platelet Count 132 K/mm3 (150-450); RBC Distribution Width CV 12.8 % (11.6-14.6); RBC Distribution Width SD 45.5 fl (35.1-43.9); Red Blood Count 4.83 M/mm3 (4.6-6.2); White Blood Count 6.5 K/mm3 (4.4-11.0)
[2021-09-16 09:19] LABS: Differential Indicated SCAN CRITERIA MET
[2021-09-16] MEDS: amLODIPine 5 MG Tablet PO (09:21)
[2021-09-16] MEDS: dexAMETHasone 10 MG/ML Vial 6 MG IV (09:21)
[2021-09-16] MEDS: 0.9% Saline Lock 10 ML Syringe IV (09:22)
[2021-09-16] MEDS: Glycerin/Hypromellose/PEG400 15 ml Bottle 1 DRP OPHTHALMIC ×4 (09:22→20:30)
[2021-09-16] MEDS: IBRUTINIB 140 MG CAPSULE 420 MG PO (09:22)
[2021-09-16] MEDS: Enoxaparin 100 MG/ML Syringe 85 MG SC (09:22)
[2021-09-16 09:56] LABS: Differential Comment SCANNED
[2021-09-16 10:10] LABS: ALB/GLOB Ratio 0.4 RATIO (0.9-2.4); AST(SGOT) 23 U/L (15-37); Alanine Aminotransfer ALT/SGPT 35 U/L (16-61); Albumin, Serum 2.2 g/dL (3.2-5.0); Alkaline Phosphatase 57 U/L (45-117); Anion Gap 10 (5-15); BUN 60 mg/dL (7-18); BUN/Creat Ratio 34.1 RATIO (10-20); Calcium,Total 8.4 mg/dL (8.5-10.1); Chloride 100 mmol/L (98-107); Creatinine, Serum 1.76 mg/dL (0.70-1.30); EST Glomerular Filtration Rate 41 mL/min (>60); Est Glom Filt Rate - Afr Amer 49 mL/min (>60); Estimated Creatinine Clearance 35.99 ml/min; Glucose 319 mg/dL (74-106); Protein, Total 7.2 g/dL (6.4-8.2); Sodium Level 133 mmol/L (136-145)
--- NOTE | 2021-09-16 10:37 | PCM.CONS.GEN ---
Assessment & Plan Assessment/Plan (1) Acute respiratory failure with hypoxia: (2) COVID-19: PLAN: Sx since around 09/05. Vaccinated x3. Isolate until 09/27. On dex. Not given remdesivir on admit due to CKD. Now on airvo. Not candidate for baricitinib due to immunosuppression with lymphoma and ibrutinib (follows with Dr. Strong). Will follow, thank you HPI Consult Data Date of Consult: 09/16/21 HPI Narrative HPI Narrative: HUMBERTO LOZANO, is a 71 M who presented 09/12 with sx since 09/05 or so. Reportedly had URI sx at home, then some new confusion and fever to 104 with hypoxia on 09/12. C/o aches, headache, sore throat, body aches. Taken to ED, admitted on dex. Not given remdesivir due to CKD. Now worsening O2, on airvo. Full ROS performed and neg except as noted above. [facility]LY [facility] Medical History Cholecystectomy planned HTN (hypertension) Leukemia Medical History unable to obtain Home Medications gabapentin 600 mg PO TIDCM 01/29/19 [History Last Taken 09/19/20] sildenafil [Viagra] 100 mg PO PRN PRN 01/29/19 [History Last Taken Unknown] carboxymethylcellulose sodium 15 ml OP 4X/DAY 07/19/20 [History Last Taken 09/19/20] latanoprost 1 drp EACH EYE QHS 09/19/20 [History Last Taken 09/18/20] omega-3 fatty acids-fish oil 3 ea PO DAILY 09/19/20 [History Last Taken 09/19/20] amlodipine [Norvasc] 5 mg PO DAILY 09/12/21 [History Last Taken Unknown] ibrutinib [Imbruvica] 420 mg PO DAILY 09/12/21 [History Last Taken Unknown] Allergy/AdvReac Type Severity Reaction Status Date / Time No Known Allergies Allergy Verified 09/12/21 14:07 Family History unable to obtain Surgical History unable to obtain Social History Smoking Status: Former smoker Physical Exam Const alert and oriented x3 General Appearance: cooperative Exam Limitations: no limitations HEENT normocephalic and head/scalp atraumatic Eyes PERRL and EOMs intact bilaterally Neck supple and No nodes Resp Auscultation: diminished lung sounds Cardio regular rate and regular rhythm GI normal to inspection, nondistended, normoactive bowel sounds Extremity no clubbing, cyanosis or edema Skin no rashes or lesions noted Neuro CN's II-XII intact bilaterally Lab / Micro Data Result Diagrams: 09/16/21 07:14 09/16/21 07:14 Labs: Laboratory Results - last 24 hr 09/15/21 07:16: C-React Prot Ext Range 211.00 H 09/15/21 07:16: B-Natriuretic Peptide 14.0 09/15/21 15:22: D-Dimer Quant (PE/DVT) 1.24 H* 09/15/21 15:22: Procalcitonin 15.28 H 09/16/21 07:14: WBC 6.5, RBC 4.83, Hgb 15.8, Hct 46.3, MCV 95.9 H, MCH 32.7 H, MCHC 34.1, RDW Std Deviation 45.5 H, RDW Coeff of Zarina 12.8, Plt Count 132 L, MPV 13.2 H, Immature Gran % (Auto) 3.500 H, Neut % (Auto) 81.7 H, Lymph % (Auto) 6.0 L, [place] % (Auto) 8.3, Eos % (Auto) 0.0, Baso % (Auto) 0.5, Absolute Neuts (auto) 5.3, Absolute Lymphs (auto) 0.39 L, Nucleated RBC % 0, Differential Comment SCANNED 09/16/21 07:14: Sodium 133 L, Potassium 4.0, Chloride 100, Carbon Dioxide 23.0, Anion Gap 10, BUN 60 H, Creatinine 1.76 H, Estim Creat Clear Calc 35.99, Est GFR (MDRD) Af Amer 49 L, Est GFR (MDRD) Non-Af 41 L, BUN/Creatinine Ratio 34.1 H, Glucose 319 H, Calcium 8.4 L, Total Bilirubin 0.70, AST 23, ALT 35, Alkaline Phosphatase 57, Total Protein 7.2, Albumin 2.2 L, Globulin 5.0 H, Albumin/Globulin Ratio 0.4 L Micro: Microbiology 09/12/21 14:35 Blood Culture (Wb) - Anticubital Left Blood Culture - Preliminary 09/12/21 14:34 Blood Culture (Wb) - Left Hand Blood Culture - Preliminary No growth in 48 hours. Radiology Impression Venous Doppler Study 09/12/21 21:41 Interpretation Summary No evidence for acute deep venous thrombosis bilateral lower extremities with patent and compressible bilateral great saphenous veins. COVID-19 protocol utilized Ordering Physician: Christiano Cook Referring Physician: Francheska Perez Performed By: Xi Barragan, IRINA, RVT Chest X-Ray 09/15/21 15:30 IMPRESSION: Findings which may be consistent with changes of Covid 19 pneumonia more pronounced in the right lung with slight interval improvement since previous study. Clinical correlation recommended.. Electronically Signed: Dario Bower MD at 16:06 EST , Service support ,
--- NOTE | 2021-09-16 10:49 | NURSING ---
This nurse came in to get pt prone in bed. Pt refused. I cant with all these cords. Pt educated by nurse. Pt refused about 5 min of educating the importance of proning.
--- NOTE | 2021-09-16 11:11 | PN.HOSP_ITS ---
Subjective Subjective Patient seen and examined. He says he got more short of breath overnight, and didnt feel like he could breathe.His oxygen was increased on the AirVo, and he felt much better. REview of systems is otherwise negative. Objective Data Objective Data Vital Signs: Vital Signs Temp Pulse Resp BP Pulse Ox 98.0 F 69 22 H 134/65 H 91 09/16/21 08:46 09/16/21 08:46 09/16/21 08:46 09/16/21 08:46 09/16/21 10:36 Oxygen Flow Rate (L/min) 60 Oxygen Delivery Method Airvo Weight: 188 lb 5 oz Body Mass Index (BMI) 29.5 Intake & Output: Intake and Output for Last 24 Hours 09/14/21 09/15/21 09/16/21 23:59 23:59 23:59 Intake Total 650 / 650 700 / 700 400 / 400 Output Total 1150 / 1150 1100 / 1100 450 / 450 Balance -500 / -500 -400 / -400 -50 / -50 Lab / Micro Data Result Diagrams: 09/16/21 07:14 09/16/21 07:14 Labs: Laboratory Results - last 24 hr 09/15/21 07:16: C-React Prot Ext Range 211.00 H 09/15/21 07:16: B-Natriuretic Peptide 14.0 09/15/21 15:22: D-Dimer Quant (PE/DVT) 1.24 H* 09/15/21 15:22: Procalcitonin 15.28 H 09/16/21 07:14: WBC 6.5, RBC 4.83, Hgb 15.8, Hct 46.3, MCV 95.9 H, MCH 32.7 H, MCHC 34.1, RDW Std Deviation 45.5 H, RDW Coeff of Zarina 12.8, Plt Count 132 L, MPV 13.2 H, Immature Gran % (Auto) 3.500 H, Neut % (Auto) 81.7 H, Lymph % (Auto) 6.0 L, [place] % (Auto) 8.3, Eos % (Auto) 0.0, Baso % (Auto) 0.5, Absolute Neuts (auto) 5.3, Absolute Lymphs (auto) 0.39 L, Nucleated RBC % 0, Differential Comment SCANNED 09/16/21 07:14: Sodium 133 L, Potassium 4.0, Chloride 100, Carbon Dioxide 23.0, Anion Gap 10, BUN 60 H, Creatinine 1.76 H, Estim Creat Clear Calc 35.99, Est GFR (MDRD) Af Amer 49 L, Est GFR (MDRD) Non-Af 41 L, BUN/Creatinine Ratio 34.1 H, Glucose 319 H, Calcium 8.4 L, Total Bilirubin 0.70, AST 23, ALT 35, Alkaline Phosphatase 57, Total Protein 7.2, Albumin 2.2 L, Globulin 5.0 H, Albumin/Globulin Ratio 0.4 L Micro: Microbiology 09/12/21 14:35 Blood Culture (Wb) - Anticubital Left Blood Culture - Preliminary 09/12/21 14:34 Blood Culture (Wb) - Left Hand Blood Culture - Preliminary No growth in 48 hours. 09/12/21 21:13 Urine, Clean Catch Legionella Antigen - Final 09/12/21 21:13 Urine, Clean Catch Streptococcus pneumoniae Antigen (M - Final 09/12/21 14:34 Mucosa - Nasopharyngeal Influenza Types A,B Direct FA (JOSH) - Final 09/12/21 14:34 Nasal Secretion SARS-CoV-2 Antigen (Rapid) - Final SARS-CoV-2 (COVID 19) Radiography Diagnostic Testing: Radiology Impression Venous Doppler Study 09/12/21 21:41 Interpretation Summary No evidence for acute deep venous thrombosis bilateral lower extremities with patent and compressible bilateral great saphenous veins. COVID-19 protocol utilized Ordering Physician: Christiano Cook Referring Physician: Francheska Perez Performed By: Xi Barragan, RDCS, RVT Chest X-Ray 09/15/21 15:30 IMPRESSION: Findings which may be consistent with changes of Covid 19 pneumonia more pronounced in the right lung with slight interval improvement since previous study. Clinical correlation recommended.. Electronically Signed: Dario Bower MD at 16:06 EST , Service support , Physical Exam Const alert, oriented x3 and no apparent distress Exam Limitations: no limitations HEENT normocephalic, head/scalp atraumatic and moist oral mucous membranes Head and Scalp: normocephalic Eyes PERRL, EOMs intact bilaterally and conjunctivae normal Neck no lymphadenopathy and supple Resp normal respiratory effort, no retractions, no use of accessory muscles and clear to auscultation bilaterally Resp Narrative: Diminished breath sounds bibasilarly. No wheezes or crackles. On air Vo. Cardio regular rate, regular rhythm, S1 normal heart sound, S2 normal heart sound and no murmurs GI normal to inspection, nondistended, normoactive bowel sounds, soft to palpation, non-tender and non-distended Extremity normal to inspection, full ROM and no clubbing, cyanosis or edema Skin no rashes or lesions noted and no wounds Neuro oriented x3, CN's II-XII intact bilaterally and moves all extremities Neuro Narrative: Does not follow commands appropriately. Globally confused. Peers move all extremities spontaneously. Sensorium / Orientation: awake and alert Psych affect normal Assessment & Plan Assessment/Plan (1) Acute respiratory failure with hypoxia: (2) COVID-19: PLAN: #Acute hypoxic respiratory failure due to covid 19 pneumonia * On AirVo with FiO2 of 90% * Titrate oxygen to maintain saturation above 90%. On dexamethasone. * Not given remdesivir due to his CKD. * not a candidate for baricitinib due to immunosuppression with lymphoma and ibrutinib. * ID on board * diurese as needed to maintain euvolemic status * #Acute metabolic encephalopathy * resolving. Patient now doing much better. * Was on gabapentin which has been held. Will monitor for now. * CT of the head was also negative * #Elevated D dimer * D dimer is elevated at 1.72. Likely due to covid * on lovenox 85mg daily. * #CKD stage III: Stable. CR is down to 1.76. 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 Follow-up with oncology on outpatient basis. DVT prophylaxis: Lovenox sc 85mg daily Charges/Coding Visit Charges Inpatient E&M: 02334 Subs Hosp L3
[2021-09-16] MEDS: Latanoprost 0.005% 1 Bottle 1 DRP EACH EYE (20:30)
[2021-09-16] MEDS: MELATONIN 3 MG TABLET PO (20:31)
--- NOTE | 2021-09-16 22:40 | NURSING ---
Patient instructed to use IS and turn onto his side during this time. This RN helped position patient onto his left side.
--- NOTE | 2021-09-16 23:58 | NURSING ---
Patient started on BIPAP at this time.
[2021-09-17] VITALS (35 sets, daily range): BP systolic 81–159; BP diastolic 55–87; PULSE 65–95; RESP 12–34; TEMP 36.3–39.2; O2SAT 88–96
--- NOTE | 2021-09-17 00:41 | NURSING ---
Patients Claire called and notified that patient will be transferred to the ICU.
[2021-09-17 03:07] LABS: Hematocrit 47.4 % (40-54); Hemoglobin 16.2 g/dL (13.0-16.5); Mean Corp Hgb Conc 34.2 g/dL (32-36); Mean Corpuscular Hgb 32.3 pg (27.0-32.0); Mean Corpuscular Volume 94.6 fL (80-94); Mean Platelet Vol. 13.7 fl (6.2-12.0); POSITIVE COUNT YES; POSITIVE DIFFERENTIAL YES; POSITIVE MORPHOLOGY YES; Platelet Count 147 K/mm3 (150-450); RBC Distribution Width CV 12.6 % (11.6-14.6); RBC Distribution Width SD 43.9 fl (35.1-43.9); Red Blood Count 5.01 M/mm3 (4.6-6.2); White Blood Count 6.3 K/mm3 (4.4-11.0)
[2021-09-17 03:08] LABS: Differential Indicated MANUAL DIFF
[2021-09-17 03:24] LABS: Absolute Lymphocyte Count 0.32 X10^3/uL (0.83-4.51); Absolute Neutrophil Count 5.7 X10^3/uL (2.0-7.7); Anion Gap 9 (5-15); BUN 49 mg/dL (7-18); Chloride 106 mmol/L (98-107); Creatinine, Serum 1.36 mg/dL (0.70-1.30); EST Glomerular Filtration Rate 55 mL/min (>60); Est Glom Filt Rate - Afr Amer 66 mL/min (>60); Estimated Creatinine Clearance 46.58 ml/min; Glucose 310 mg/dL (74-106); Sodium Level 136 mmol/L (136-145)
[2021-09-17 03:25] LABS: Lymphocyte 5 % (19-41); Metamyelocyte 0 % (0-1); Monocyte 3 % (0-10); Myelocyte 1 % (0-0); Neutrophil-Band 9 % (0-5); Neutrophil-Segmented 81 % (47-70); Promyelocyte 1 % (0-0); Total Cells Counted 100 (MANUAL DIFF)
[2021-09-17 03:26] LABS: Platelet Estimate SLT DEC (ADEQ); Red Cell Morphology NORM C+C NORMAL (NORM C&C)
[2021-09-17 03:28] LABS: Atypical Lymphocyte 2+ %
--- NOTE | 2021-09-17 05:20 | PCM.HOSP.N ---
Hospitalist Note I got a call earlier this morning from the nurses on [address]. concerning the patient, he initially refused BiPAP but then when his oxygen saturation did not improve on Airvo, he agreed to BiPAP. At the time the nurses called me, he was on 100% O2 on BiPAP, despite this is O2 sat was only 92. Made the decision to transfer the patient to ICU in case he needed to be emergently intubated, patient has been refusing to prone even though the nurses on [address]. have been reminding him to do so. Prognosis remains poor at this time. Per documentation, patient is a full code.
--- NOTE | 2021-09-17 06:45 | PCM.PN.INT ---
Assessment & Plan Assessment/Plan (1) Acute respiratory failure with hypoxia: (2) COVID-19: PLAN: RECOMMENDATIONS: 1. Proceed with intubation. 2. Obtain arterial blood gas 1 hour post intubation. 3. Obtain and send sputum for culture. 4. Continue therapeutic Lovenox. 5. Dietitian consultation for tube feed recommendations. 6. Continue empiric antimicrobials. 7. Continue Decadron to complete 10 days of therapy. 8. Start appropriate GI prophylaxis. IMPRESSIONS: 1. Acute hypoxemic respiratory failure secondary to COVID-19 pneumonia The patient initially presented to the hospital on September 12 with altered mentation was subsequently found to be positive for COVID-19. He has had progressive worsening in his oxygenation status over the course of this hospitalization. D-dimer was elevated at presentation so the patient was placed on therapeutic Lovenox. CTA chest could not initially be obtained due to underlying renal insufficiency. The patient was not deemed to be a candidate for baricitinib. Unfortunately, the patient's respiratory status continued to decline. Despite the use of noninvasive positive pressure ventilatory support, the patient remained hypoxemic and ultimately required intubation on September 17. Given his clinical decompensation, empiric antimicrobials were initiated. The patient will be continued on Decadron to complete 10 days of therapy. 2. Acute on chronic kidney disease Improving. Likely prerenal in etiology and related to acute presentation. Continue to monitor urine output for now. Avoid nephrotoxic medications, including diuretics for now. 3. Advanced age/hypertension/neuropathy/leukemia Complicates care, management, recovery and prognosis. Continue supportive measures as noted above. TIME: 39 minutes of critical care time, independent of procedures, was spent addressing the patient's acute hypoxemic respiratory failure secondary to COVID-19 pneumonia, acute on chronic kidney disease, review of all data and collaboration with care team. Subjective Subjective The patient was seen and examined at the bedside this morning. Events from the last 24 hours have been reviewed. The patient was transferred to the ICU overnight due to worsening respiratory status and increasing oxygen demand. The patient currently has a low-grade fever but remains otherwise hemodynamically stable. He is currently being maintained on AVAPS with an FiO2 requirement of 100%. The patient is currently documented to be overall net -1.2 L for the hospitalization. Creatinine has improved to 1.36. Procalcitonin was elevated at 15.2 on September 15. The patient is currently on meropenem, Decadron and therapeutic Lovenox. He was not deemed to be a candidate for baricitinib. On my evaluation of the patient this morning, he was visibly fatigued, tachypneic maintaining marginal oxygen saturations on 100% AVAPS. Therefore, the decision was made to proceed with intubation. Intubation Indication: Respiratory failure Consent was obtained from: Patient The patient was placed in the appropriate sniffing position. Preoxygenated sedation via BiPAP was provided for a minimum of 3 minutes. The patient had continuous cardiac as well as pulse oximetry monitoring during the procedure. Procedure sedation was provided by the administration of 4 mg of Versed, 20 mg of etomidate and 100 mg of succinylcholine. Direct laryngoscopy was then performed using a number 4 MAC blade, which revealed a grade 1 view. A 8.0 mm endotracheal tube was visualized advancing between the cords to the level of 24 cm at the lip. The stylette was then removed and discarded. Tube placement was confirmed by fogging in the tube along with equal and bilateral breath sounds. Colorimetric change was visualized on the CO2 meter. The cuff was then inflated and the tube secured using a commercially available device. A good pulse oximetry waveform was seen on the monitor throughout the procedure. A portable chest x-ray has been ordered to confirm appropriate placement. The patient tolerated the procedure well. Objective Data Objective Data The patient's most recent lab work, culture data and imaging studies have all been personally reviewed. Rapid coronavirus antigen testing was positive on September 12. Vital Signs: Vital Signs Temp Pulse Resp BP Pulse Ox 99.5 F H 95 30 H 157/75 H 92 09/17/21 04:00 09/17/21 06:00 09/17/21 06:00 09/17/21 06:00 09/17/21 06:00 Oxygen Flow Rate (L/min) 60 Oxygen Delivery Method Bi-pap Weight: 85.417 kg Body Mass Index (BMI) 29.5 Intake & Output: Intake and Output for Last 24 Hours 09/15/21 09/16/21 09/17/21 23:59 23:59 23:59 Intake Total 700 / 700 400 / 400 60 / 60 Output Total 1100 / 1100 1700 / 1700 600 / 600 Balance -400 / -400 -1300 / -1300 -540 / -540 Lab / Micro Data Attestation: I reviewed the patient's lab results. Result Diagrams: 09/17/21 03:00 09/17/21 03:00 Labs: Laboratory Results - last 24 hr 09/16/21 07:14: WBC 6.5, RBC 4.83, Hgb 15.8, Hct 46.3, MCV 95.9 H, MCH 32.7 H, MCHC 34.1, RDW Std Deviation 45.5 H, RDW Coeff of Zarina 12.8, Plt Count 132 L, MPV 13.2 H, Immature Gran % (Auto) 3.500 H, Neut % (Auto) 81.7 H, Lymph % (Auto) 6.0 L, [place] % (Auto) 8.3, Eos % (Auto) 0.0, Baso % (Auto) 0.5, Absolute Neuts (auto) 5.3, Absolute Lymphs (auto) 0.39 L, Nucleated RBC % 0, Differential Comment SCANNED 09/16/21 07:14: Sodium 133 L, Potassium 4.0, Chloride 100, Carbon Dioxide 23.0, Anion Gap 10, BUN 60 H, Creatinine 1.76 H, Estim Creat Clear Calc 35.99, Est GFR (MDRD) Af Amer 49 L, Est GFR (MDRD) Non-Af 41 L, BUN/Creatinine Ratio 34.1 H, Glucose 319 H, Calcium 8.4 L, Total Bilirubin 0.70, AST 23, ALT 35, Alkaline Phosphatase 57, Total Protein 7.2, Albumin 2.2 L, Globulin 5.0 H, Albumin/Globulin Ratio 0.4 L 09/17/21 03:00: WBC 6.3, RBC 5.01, Hgb 16.2, Hct 47.4, MCV 94.6 H, MCH 32.3 H, MCHC 34.2, RDW Std Deviation 43.9, RDW Coeff of Zarina 12.6, Plt Count 147 L, MPV 13.7 H, Neut % (Auto) Not Reportable, Absolute Neuts (auto) 5.7, Absolute Lymphs (auto) 0.32 L, Total Counted 100, Neutrophils % (Manual) 81 H, Band Neutrophils % 9 H, Lymphocytes % (Manual) 5 L, Monocytes % (Manual) 3, Metamyelocytes % 0, Myelocytes % 1 H, Promyelocytes % 1 H, Diff Path Review May foll, Atypical Lymphocytes 2+, Platelet Estimate SLT DEC, RBC Morphology NORM C+C 09/17/21 03:00: Sodium 136, Potassium 4.0, Chloride 106, Carbon Dioxide 21.0, Anion Gap 9, BUN 49 H, Creatinine 1.36 H, Estim Creat Clear Calc 46.58, Est GFR (MDRD) Af Amer 66, Est GFR (MDRD) Non-Af 55 L, BUN/Creatinine Ratio 36.0 H, Glucose 310 H, Calcium 7.0 L Micro: Microbiology 09/12/21 14:35 Blood Culture (Wb) - Anticubital Left Blood Culture - Preliminary Gram positive maria elena 09/12/21 14:34 Blood Culture (Wb) - Left Hand Blood Culture - Preliminary No growth in 48 hours. 09/12/21 21:13 Urine, Clean Catch Legionella Antigen - Final 09/12/21 21:13 Urine, Clean Catch Streptococcus pneumoniae Antigen (M - Final 09/12/21 14:34 Mucosa - Nasopharyngeal Influenza Types A,B Direct FA (JOSH) - Final 09/12/21 14:34 Nasal Secretion SARS-CoV-2 Antigen (Rapid) - Final SARS-CoV-2 (COVID 19) Physical Exam Const alert General Appearance: cooperative, ill appearing and on BiPAP Nutritional Appearance: overweight HEENT normocephalic and head/scalp atraumatic Mouth: dry mucous membranes Eyes PERRL, EOMs intact bilaterally and conjunctivae normal Neck supple General: trachea midline Chest inspection of chest normal Resp Effort and Inspection: tachypneic and labored Auscultation: diminished lung sounds Cardio regular rate and regular rhythm GI normal to inspection, nondistended, normoactive bowel sounds Extremity no clubbing, cyanosis or edema Skin no rashes or lesions noted Neuro CN's II-XII intact bilaterally, moves all extremities and no focal motor deficits Psych Mood & Affect: flat affect Charges/Coding Procedures Hospitalists Procedures: 72093 Critial Care 1st Hr
--- NOTE | 2021-09-17 09:58 | NURSING ---
1000 Dr. Fulton, RT and 2 ICU rns present pt room, prep to intubate HR 71 BP 158/79 R 28, SpO2 95% Versed 4mg IV given SR w PACs 1001 20mg Etomidate 1003 100mg Succ 1004 8 OET 24cm lip, 100%. good color change HR 74 BP 141/64 R 16 SpO2 90 1005 prop 25mcq fent 200mcq begun.
[2021-09-17] MEDS: Midazolam 2 MG/2 ML Syringe 4 MG IV (10:01)
[2021-09-17] MEDS: Etomidate 20 MG/10 ML Vial IV (10:02)
[2021-09-17] MEDS: Propofol 10MG/Ml 1,000 MG/100 ML Bottle 12.8 MG CONT INF (10:10)
--- NOTE | 2021-09-17 10:12 | RAD_ITS ---
STUDY: X-RAY CHEST REASON FOR EXAM: Male, 71 years old. OET and OG placement TECHNIQUE: Single AP portable view of the chest. COMPARISON: Comparison is made with prior study dated 09/15/2021. FINDINGS: An endotracheal tube is in situ. The tip is at 3.4 cm proximal to the shawna. An orogastric tube is seen with the tip in the fundal portion of the stomach. EKG electrodes are seen. Stable bibasilar pulmonary infiltrates. There is no demonstrated pleural abnormality. Normal size heart. Normal mediastinum and blake. Normal visualized pulmonary arteries. Normal visualized aortic arch and descending thoracic aorta. There are diffuse degenerative changes of the visualized thoracic spine. Normal visualized ribs, clavicles, and shoulders. There is no demonstrated abnormality of the visualized soft tissue structures of the upper abdomen. RAD/Chest 1 View (Portable) IMPRESSION: The tip of the endotracheal tube is at 3.4 cm proximal to the shawna. An orogastric tube is seen with the tip in the fundal portion of the stomach. Stable bibasilar pulmonary infiltrates. Electronically Signed: Nicanor Thomas MD at 11:03 EST , Service support ,
[2021-09-17] MEDS: 0.9% Saline Lock 10 ML Syringe IV (10:35)
[2021-09-17] MEDS: Acetaminophen 650 MG Suppository RC (11:03)
[2021-09-17 11:06] LABS: Allen Test Positive; Base Excess -4 mmol/L (-2 to +2); Bicarbonate 21.9 mmol/L (22-26); Blood Gas Specimen Type ART; FI02 100; Mode AC; O2 Delivery Device ET Tube; PEEP 14; PO2 62 mmHG (75-100); RR 14; SITE R Radial; SO2 89 % (95-99); Total Carbon Dioxide 23 mmol/L; Vt 450; pCO2 44.3 mmHg (35-45)
[2021-09-17] MEDS: Propofol 10MG/Ml 1,000 MG/100 ML Bottle 25.6 MG CONT INF (11:55)
[2021-09-17] MEDS: Glycerin/Hypromellose/PEG400 15 ml Bottle 1 DRP OPHTHALMIC ×3 (12:08→22:46)
[2021-09-17] MEDS: dexAMETHasone 10 MG/ML Vial 6 MG IV (12:09)
[2021-09-17] MEDS: Insulin Lispro 100 UNIT/ML INSULN.PEN SC ×3 (12:12→23:59)
[2021-09-17] MEDS: Enoxaparin 100 MG/ML Syringe 85 MG SC ×2 (12:14→22:45)
[2021-09-17 12:20] LABS: Bedside Glucose 326 mg/dL (70-110)
[2021-09-17 13:16] LABS: CPK Total, Creatine Kinase 36 U/L (39-308); Triglycerides 308 mg/dL
--- NOTE | 2021-09-17 14:18 | PN.HOSP_ITS ---
Subjective Subjective Patient seen and examined. He was transferred to the ICU overnight on account of worsening respiratory status. He was on BiPAP at time I reviewed him today. Patient was still tachypneic. His only complaint was that he was thirsty. Review of systems otherwise negative. Due to patient's worsening respiratory st atus, decision made to intubate him today. Objective Data Objective Data Vital Signs: Vital Signs Temp Pulse Resp BP Pulse Ox 102.2 F H 83 16 98/74 93 09/17/21 12:00 09/17/21 13:48 09/17/21 13:48 09/17/21 12:00 09/17/21 13:48 Oxygen Flow Rate (L/min) 60 Oxygen Delivery Method Mechanical Ventilator Weight: 188 lb 5 oz Body Mass Index (BMI) 29.5 Intake & Output: Intake and Output for Last 24 Hours 09/15/21 09/16/21 09/17/21 23:59 23:59 23:59 Intake Total 700 / 700 400 / 400 353.51 / 353.51 Output Total 1100 / 1100 1700 / 1700 1005 / 1005 Balance -400 / -400 -1300 / -1300 -651.49 / -651.49 Lab / Micro Data Result Diagrams: 09/17/21 03:00 09/17/21 03:00 Labs: Laboratory Results - last 24 hr 09/17/21 03:00: WBC 6.3, RBC 5.01, Hgb 16.2, Hct 47.4, MCV 94.6 H, MCH 32.3 H, MCHC 34.2, RDW Std Deviation 43.9, RDW Coeff of Zarina 12.6, Plt Count 147 L, MPV 13.7 H, Neut % (Auto) Not Reportable, Absolute Neuts (auto) 5.7, Absolute Lymphs (auto) 0.32 L, Total Counted 100, Neutrophils % (Manual) 81 H, Band Neutrophils % 9 H, Lymphocytes % (Manual) 5 L, Monocytes % (Manual) 3, Metamyelocytes % 0, Myelocytes % 1 H, Promyelocytes % 1 H, Diff Path Review May foll, Atypical Lymphocytes 2+, Platelet Estimate SLT DEC, RBC Morphology NORM C+C 09/17/21 03:00: Sodium 136, Potassium 4.0, Chloride 106, Carbon Dioxide 21.0, Anion Gap 9, BUN 49 H, Creatinine 1.36 H, Estim Creat Clear Calc 46.58, Est GFR (MDRD) Af Amer 66, Est GFR (MDRD) Non-Af 55 L, BUN/Creatinine Ratio 36.0 H, Glucose 310 H, Calcium 7.0 L 09/17/21 03:00: Total Creatine Kinase 36 L, Triglycerides 308 H 09/17/21 12:05: POC Glucose 326 H Micro: Microbiology 09/12/21 14:35 Blood Culture (Wb) - Anticubital Left Blood Culture - Preliminary Gram positive maria elena 09/12/21 14:34 Blood Culture (Wb) - Left Hand Blood Culture - Preliminary No growth in 48 hours. 09/12/21 21:13 Urine, Clean Catch Legionella Antigen - Final 09/12/21 21:13 Urine, Clean Catch Streptococcus pneumoniae Antigen (M - Final 09/12/21 14:34 Mucosa - Nasopharyngeal Influenza Types A,B Direct FA (JOSH) - Final 09/12/21 14:34 Nasal Secretion SARS-CoV-2 Antigen (Rapid) - Final SARS-CoV-2 (COVID 19) ABG Data ABG results: ABG 09/17/21 11:02 Specimen Type ART Sample Site R Radial pH 7.30 L Bicarbonate Actual 21.9 L Total CO2 23 Base Excess -4 L O2 Saturation 89 L O2 % 100 ABG pCO2 44.3 ABG pO2 62 L Grayson Test Positive Respiration Rate 14 O2 Delivery Device ET Tube Vent Mode AC Tidal Volume 450 POC PEEP 14 Radiography Diagnostic Testing: Radiology Impression Chest X-Ray 09/17/21 10:12 IMPRESSION: The tip of the endotracheal tube is at 3.4 cm proximal to the shawna. An orogastric tube is seen with the tip in the fundal portion of the stomach. Stable bibasilar pulmonary infiltrates. Electronically Signed: Nicanor Thomas MD at 11:03 EST , Service support , Physical Exam Const alert, oriented x3 and no apparent distress Orientation / Consciousness: confused and lethargic Exam Limitations: no limitations HEENT normocephalic, head/scalp atraumatic and moist oral mucous membranes Head and Scalp: normocephalic Eyes PERRL, EOMs intact bilaterally and conjunctivae normal Neck no lymphadenopathy and supple Resp no retractions, no use of accessory muscles and clear to auscultation bilaterally Resp Narrative: Diminished breath sounds bibasilarly. No wheezes or crackles. tachypneic, on BIPAP at time of review Cardio regular rate, regular rhythm, S1 normal heart sound, S2 normal heart sound and no murmurs GI normal to inspection, nondistended, normoactive bowel sounds, soft to palpation, non-tender and non-distended Extremity normal to inspection, full ROM and no clubbing, cyanosis or edema Peripheral Pulses: Yes pulses 2+ throughout Skin no rashes or lesions noted and no wounds Neuro CN's II-XII intact bilaterally and moves all extremities Neuro Narrative: lethargic Sensorium / Orientation: awake and alert Psych affect normal Assessment & Plan Assessment/Plan (1) Acute respiratory failure with hypoxia: (2) COVID-19: PLAN: #Acute hypoxic respiratory failure due to covid 19 pneumonia * transferred emergently to ICU overnight due to worsening respiratory status * on BIPAP at time of review. To be intubated today due to worsening respiratory status * ID and pulmonology on board * not a candidate for both remdesivir and baricitinib due to CKD and immunosuppression respectively * diurese as needed to maintain euvolemic status * sputum culture ordered * on empiric antimicrobials also * #Acute metabolic encephalopathy * Was on gabapentin which has been held. Will monitor for now. * CT of the head was also negative * will monitor * #Elevated D dimer * D dimer is elevated at 1.72. Likely due to covid * on lovenox 85mg daily. * #CKD stage III: Stable. CR is down to 1.76. 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 Follow-up with oncology on outpatient basis. #Nutrition: shop coordinator consulted for tube feeding. DVT prophylaxis: Lovenox sc 85mg daily Charges/Coding Visit Charges Inpatient E&M: 88080 [facility] Hosp L3
[2021-09-17 14:19] LABS: Pathologist Review Reviewed
--- NOTE | 2021-09-17 15:34 | CASEMGMT ---
Social Work SW received pt living will and Health Care POA. Pt names his son German Solorzano as HCPOA. SW made copies of documents and placed them on patients chart. Originals given to pt nurse and requested they be placed in pt belongings next time RN enters pt room. DEWEY Thornton
[2021-09-17] MEDS: Propofol 10MG/Ml 1,000 MG/100 ML Bottle 23.1 MG CONT INF (16:05)
[2021-09-17 18:45] LABS: Bedside Glucose 342 mg/dL (70-110)
[2021-09-17] MEDS: Propofol 10MG/Ml 1,000 MG/100 ML Bottle 20.5 MG CONT INF (20:46)
[2021-09-17] MEDS: Latanoprost 0.005% 1 Bottle 1 DRP EACH EYE (22:46)
[2021-09-18] VITALS (44 sets, daily range): BP systolic 85–188; BP diastolic 61–105; PULSE 70–170; RESP 14–26; TEMP 37.2–38.1; O2SAT 88–95
[2021-09-18] MEDS: Propofol 10MG/Ml 1,000 MG/100 ML Bottle 15.4 MG CONT INF (01:56)
[2021-09-18 04:01] LABS: Bedside Glucose 363 mg/dL (70-110)
[2021-09-18 06:09] LABS: Hematocrit 49.6 % (40-54); Hemoglobin 16.3 g/dL (13.0-16.5); Mean Corp Hgb Conc 32.9 g/dL (32-36); Mean Corpuscular Hgb 32.9 pg (27.0-32.0); Mean Corpuscular Volume 100.2 fL (80-94); Mean Platelet Vol. 13.5 fl (6.2-12.0); POSITIVE COUNT YES; POSITIVE DIFFERENTIAL YES; POSITIVE MORPHOLOGY YES; Platelet Count 210 K/mm3 (150-450); RBC Distribution Width CV 13.2 % (11.6-14.6); RBC Distribution Width SD 49.1 fl (35.1-43.9); Red Blood Count 4.95 M/mm3 (4.6-6.2); White Blood Count 13.4 K/mm3 (4.4-11.0)
[2021-09-18 06:10] LABS: Differential Indicated MANUAL DIFF
[2021-09-18] MEDS: Insulin Lispro 100 UNIT/ML INSULN.PEN SC ×3 (06:13→17:03)
[2021-09-18 06:33] LABS: Absolute Lymphocyte Count 0.94 X10^3/uL (0.83-4.51); Absolute Neutrophil Count 11.7 X10^3/uL (2.0-7.7); Myelocyte 1 % (0-0); Neutrophil-Segmented 87 % (47-70); Total Cells Counted 100 (MANUAL DIFF)
[2021-09-18 06:34] LABS: Lymphocyte 7 % (19-41); Monocyte 4 % (0-10); Platelet Estimate ADEQUATE (ADEQ); Promyelocyte 1 % (0-0); Red Cell Morphology NORM C+C NORMAL (NORM C&C)
--- NOTE | 2021-09-18 06:40 | PN.CC_ITS ---
Assessment & Plan Assessment/Plan (1) Acute respiratory failure with hypoxia: (2) COVID-19: PLAN: RECOMMENDATIONS: 1. Continue patient on assist control mode of mechanical ventilation. Wean FiO2/PEEP for saturations greater than 90%. 2. Continue antimicrobials as ordered. 3. Continue Decadron to complete 10 days of therapy. 4. Continue therapeutic Lovenox. 5. Continue tube feeds as tolerated. 6. Continue appropriate GI prophylaxis. 7. Obtain nephrology consultation. 8. Medical management of hyperkalemia. IMPRESSIONS: 1. Acute hypoxemic respiratory failure secondary to COVID-19 pneumonia The patient initially presented to the hospital on September 12 with altered mentation was subsequently found to be positive for COVID-19. D-dimer was elevated at presentation so the patient was placed on therapeutic Lovenox. CTA chest could not initially be obtained due to underlying renal insufficiency. The patient was not deemed to be a candidate for baricitinib. Unfortunately, the patient's respiratory status continued to decline over the course of his hospitalization, resulting in transfer to the ICU and intubation on September 17. Given his clinical decompensation, empiric antimicrobials were initiated. The patient will be continued on Decadron to complete 10 days of therapy. Tube feeds will be continued as tolerated. 2. Acute on chronic kidney disease/hyperkalemia Likely prerenal in etiology and related to acute presentation. Continue to monitor urine output for now. Avoid nephrotoxic medications, including diuretics for now. Given interval worsening in her renal function will obtain nephrology consultation. Hyperkalemia will be medically managed for now with insulin and calcium gluconate. 3. Advanced age/hypertension/neuropathy/leukemia Complicates care, management, recovery and prognosis. Continue supportive measures as noted above. TIME: 35 minutes of critical care time, independent of procedures, was spent addressing the patient's acute hypoxemic respiratory failure secondary to COVID- 19 pneumonia, acute on chronic kidney disease, review of all data and collaboration with care team. Subjective Subjective The patient was seen and examined at the bedside this morning. Events from the last 24 hours have been reviewed. Today is vent day #2. The patient currently has a low-grade fever but remains otherwise hemodynamically stable. The patient remains on assist control mode of mechanical ventilation with an FiO2 requirement of 65% and PEEP of 14. He is currently sedated on propofol and fentanyl. Blood sugars have been elevated. The patient is currently documented to be overall net -800 mL for the hospitalization. The patient is currently on meropenem, Decadron and therapeutic Lovenox. He was not deemed to be a candidate for baricitinib. Objective Data Objective Data The patient's most recent lab work, culture data and imaging studies have all been personally reviewed. Rapid coronavirus antigen testing was positive on September 12. Sputum culture is currently pending. Vital Signs: Vital Signs Temp Pulse Resp BP Pulse Ox 99.7 F H 76 14 120/69 92 09/18/21 06:00 09/18/21 06:00 09/18/21 06:00 09/18/21 06:00 09/18/21 06:00 Oxygen Flow Rate (L/min) 60 Oxygen Delivery Method Mechanical Ventilator Weight: 79.4 kg Body Mass Index (BMI) 29.5 Intake & Output: Intake and Output for Last 24 Hours 09/16/21 09/17/21 09/18/21 23:59 23:59 23:59 Intake Total 400 / 400 840.02 / 863.87 224.47 / 224.47 Output Total 1700 / 1700 1125 / 1125 Balance -1300 / -1300 -284.98 / -261.13 224.47 / 224.47 Lab / Micro Data Attestation: I reviewed the patient's lab results. Result Diagrams: 09/18/21 05:55 09/18/21 07:20 Labs: Laboratory Results - last 24 hr 09/17/21 03:00: Diff Path Review Reviewed 09/17/21 03:00: Total Creatine Kinase 36 L, Triglycerides 308 H 09/17/21 12:05: POC Glucose 326 H 09/17/21 16:45: POC Glucose 342 H 09/17/21 23:53: POC Glucose 363 H 09/18/21 05:25: Sodium Cancelled, Potassium Cancelled, Chloride Cancelled, Car bon Dioxide Cancelled, Anion Gap Cancelled, BUN Cancelled, Creatinine Cancelled, Estim Creat Clear Calc Cancelled, Est GFR (MDRD) Af Amer Cancelled, Est GFR (MDRD) Non-Af Cancelled, BUN/Creatinine Ratio Cancelled, Glucose Cancelled, Calcium Cancelled 09/18/21 05:55: WBC 13.4 H, RBC 4.95, Hgb 16.3, Hct 49.6, MCV 100.2 H D, MCH 32.9 H, MCHC 32.9, RDW Std Deviation 49.1 H, RDW Coeff of Zarina 13.2, Plt Count 210, MPV 13.5 H, Neut % (Auto) Not Reportable, Absolute Neuts (auto) 11.7 H, Absolute Lymphs (auto) 0.94, Total Counted 100, Neutrophils % (Manual) 87 H, Lymphocytes % (Manual) 7 L, Monocytes % (Manual) 4, Myelocytes % 1 H, Promyelocytes % 1 H, Diff Path Review February, Platelet Estimate ADEQUATE, RBC Morphology NORM C+C Micro: Microbiology 09/12/21 14:34 Blood Culture (Wb) - Left Hand Blood Culture - Final No growth in 5 days. 09/12/21 14:35 Blood Culture (Wb) - Anticubital Left Blood Culture - Final Gram positive maria elena 09/12/21 21:13 Urine, Clean Catch Legionella Antigen - Final 09/12/21 21:13 Urine, Clean Catch Streptococcus pneumoniae Antigen (M - Final 09/12/21 14:34 Mucosa - Nasopharyngeal Influenza Types A,B Direct FA (JOSH) - Final 09/12/21 14:34 Nasal Secretion SARS-CoV-2 Antigen (Rapid) - Final SARS-CoV-2 (COVID 19) ABG Data ABG results: ABG 09/17/21 11:02 Specimen Type ART Sample Site R Radial pH 7.30 L Bicarbonate Actual 21.9 L Total CO2 23 Base Excess -4 L O2 Saturation 89 L O2 % 100 ABG pCO2 44.3 ABG pO2 62 L Grayson Test Positive Respiration Rate 14 O2 Delivery Device ET Tube Vent Mode AC Tidal Volume 450 POC PEEP 14 Radiography Diagnostic Testing: Radiology Impression Chest X-Ray 09/17/21 10:12 IMPRESSION: The tip of the endotracheal tube is at 3.4 cm proximal to the shawna. An orogastric tube is seen with the tip in the fundal portion of the stomach. Stable bibasilar pulmonary infiltrates. Electronically Signed: Nicanor Thomas MD at 11:03 EST , Service support , Physical Exam Const General Appearance: intubated and patient mechanically ventilated Nutritional Appearance: overweight HEENT normocephalic and head/scalp atraumatic Mouth: dry mucous membranes, endotracheal tube in place and OG tube in place Eyes PERRL, EOMs intact bilaterally and conjunctivae normal Neck supple General: trachea midline Chest inspection of chest normal Resp Auscultation: diminished lung sounds Cardio regular rate and regular rhythm GI normal to inspection, nondistended, normoactive bowel sounds Extremity no clubbing, cyanosis or edema Skin no rashes or lesions noted Neuro Sensorium / Orientation: sedated on vent Charges/Coding Procedures Hospitalists Procedures: 45112 Critial Care 1st Hr
[2021-09-18 07:00] LABS: Bedside Glucose 353 mg/dL (70-110)
[2021-09-18 08:04] LABS: Anion Gap 12 (5-15); BUN 112 mg/dL (7-18); BUN/Creat Ratio 26.2 RATIO (10-20); Calcium,Total 7.3 mg/dL (8.5-10.1); Chloride 103 mmol/L (98-107); Creatinine, Serum 4.28 mg/dL (0.70-1.30); EST Glomerular Filtration Rate 15 mL/min (>60); Est Glom Filt Rate - Afr Amer 18 mL/min (>60); Glucose 387 mg/dL (74-106); Potassium 7.2 mmol/L (3.5-5.1); Sodium Level 134 mmol/L (136-145)
--- NOTE | 2021-09-18 09:35 | NURSING ---
0910 Dr. Fulton present in pt room,prep for line placement HR 74 R 16 BP 116/66 SpO2 91 0940 HR 73, R 16, BP 111/63 SpO2 91 palcement begun 0945 HR 73 R 14 BP 107/71 SpO2 92 0950 HR 78 R 14 BP 96/66 SpO2 91 wire down 0952 wire out 0955 HR 73 R 15 BP 103/61 SpO2 [address] and sutured. call for CXR
[2021-09-18] MEDS: Insulin Lispro 100 UNIT/ML INSULN.PEN 10 UNIT SC (10:03)
[2021-09-18] MEDS: Glycerin/Hypromellose/PEG400 15 ml Bottle 1 DRP OPHTHALMIC ×4 (10:05→22:37)
[2021-09-18] MEDS: Enoxaparin 100 MG/ML Syringe 85 MG SC (10:22)
[2021-09-18] MEDS: dexAMETHasone 10 MG/ML Vial 6 MG IV (10:22)
--- NOTE | 2021-09-18 10:31 | PCM.OP.PRO ---
Procedure Report Date of Procedure: 09/18/21 Temporary Hemodialysis Catheter Indication: Acute kidney injury, hyperkalemia Consent was obtained from: Patient's son A time-out was completed verifying correct patient, procedure, site, positioning, and special equipment if applicable. The patient was placed in a dependent position appropriate for hemodialysis line placement based on the vein to be cannulated. The patient's right IJ was prepped and draped in the sterile fashion. 1% Lidocaine was used and emphasized the surrounding skin area. A 20 cm catheter was introduced into the right IJ, following sequential dilations, using the Seldinger technique and under ultrasound guidance. The catheter was threaded smoothly over the guidewire and appropriate blood return was obtained. Each lumen of the catheter was evacuated of air and flushed with sterile saline. The catheter was then sutured in place to the skin and a sterile dressing applied. Chest x-ray to confirm appropriate positioning is pending. ULTRASOUND GUIDANCE STATEMENT (Vascular Access): I performed an ultrasound image acquisition and interpretation for needle placement during the procedure. The vessel was identified and was found to be free of thrombosis by compression technique. A safe point of entry was marked at the skin in an angle for axis was determined. The needle was guided by obtaining free-flowing fluid and by real-time visualization. Procedures Hospitalists Procedures: [id number] Insert Non-tunnel CV Cath
--- NOTE | 2021-09-18 10:33 | RAD_ITS ---
STUDY: X-RAY CHEST REASON FOR EXAM: Male, 71 years old. tdc placement -- we will call when line in TECHNIQUE: Single AP portable view of the chest. COMPARISON: Comparison is made with prior study 09/17/2001. FINDINGS: A right sided central venous catheter is in place with the tip at the junction of the superior vena cava and right atrium. The tip of the endotracheal tube is at 3.4 cm proximal to the shawna. The tip of the orogastric tube is coiled within the fundal portion of the stomach. EKG electrodes are seen. There now is evidence of a pneumomediastinum. There is also evidence of subcutaneous emphysema overlying the lower cervical region. Stable appearance of the lungs. No evidence of pneumothorax. Normal size heart. Normal mediastinum and blake. Normal visualized pulmonary arteries. Normal visualized aortic arch and descending thoracic aorta. There are diffuse degenerative changes of the visualized thoracic spine. Normal visualized ribs, clavicles, and shoulders. There is no demonstrated abnormality of the visualized soft tissue structures of the upper abdomen. RAD/CXR for Line Placement IMPRESSION: The tip of the right central catheter is at the junction of the superior vena cava and right atrium. Pneumomediastinum as well as subcutaneous emphysema overlying the inferior aspect of the cervical region. Stable appearance of the lungs. Electronically Signed: Nicanor Thomas MD at 10:55 EST , Service support ,
--- NOTE | 2021-09-18 10:42 | PN.HOSP_ITS ---
Subjective Subjective Patient seen and examined. He remains intubated. His kidney function has worsened and he is hyperkalemic as well. He is on FiO2 of 65% and PEEP of 14. He was started on meropenem yesterday. Objective Data Objective Data Vital Signs: Vital Signs Temp Pulse Resp BP Pulse Ox 99.9 F H 77 17 85/62 L 91 09/18/21 07:00 09/18/21 09:32 09/18/21 09:32 09/18/21 07:00 09/18/21 09:32 Oxygen Flow Rate (L/min) 60 Oxygen Delivery Method Mechanical Ventilator Weight: 175 lb 0.752 oz Body Mass Index (BMI) 29.5 Intake & Output: Intake and Output for Last 24 Hours 09/16/21 09/17/21 09/18/21 23:59 23:59 23:59 Intake Total 400 / 400 840.02 / 863.87 371.45 / 371.45 Output Total 1700 / 1700 1125 / 1125 Balance -1300 / -1300 -284.98 / -261.13 371.45 / 371.45 Lab / Micro Data Result Diagrams: 09/18/21 05:55 09/18/21 07:20 Labs: Laboratory Results - last 24 hr 09/17/21 03:00: Diff Path Review Reviewed 09/17/21 03:00: Total Creatine Kinase 36 L, Triglycerides 308 H 09/17/21 12:05: POC Glucose 326 H 09/17/21 16:45: POC Glucose 342 H 09/17/21 23:53: POC Glucose 363 H 09/18/21 05:25: Sodium Cancelled, Potassium Cancelled, Chloride Cancelled, Carbon Dioxide Cancelled, Anion Gap Cancelled, BUN Cancelled, Creatinine Cancelled, Estim Creat Clear Calc Cancelled, Est GFR (MDRD) Af Amer Cancelled, Est GFR (MDRD) Non-Af Cancelled, BUN/Creatinine Ratio Cancelled, Glucose Cancelled, Calcium Cancelled 09/18/21 05:55: WBC 13.4 H, RBC 4.95, Hgb 16.3, Hct 49.6, MCV 100.2 H D, MCH 32.9 H, MCHC 32.9, RDW Std Deviation 49.1 H, RDW Coeff of Zarina 13.2, Plt Count 210, MPV 13.5 H, Neut % (Auto) Not Reportable, Absolute Neuts (auto) 11.7 H, Absolute Lymphs (auto) 0.94, Total Counted 100, Neutrophils % (Manual) 87 H, Lymphocytes % (Manual) 7 L, Monocytes % (Manual) 4, Myelocytes % 1 H, Promyelocytes % 1 H, Diff Path Review February, Platelet Estimate ADEQUATE, RBC Morphology NORM C+C 09/18/21 06:11: POC Glucose 353 H 09/18/21 07:20: Sodium 134 L, Potassium 7.2 H*, Chloride 103, Carbon Dioxide 19.0 L, Anion Gap 12, BUN 112 H*, Creatinine 4.28 H, Estim Creat Clear Calc 14.80, Est GFR (MDRD) Af Amer 18 L, Est GFR (MDRD) Non-Af 15 L, BUN/Creatinine Ratio 26.2 H, Glucose 387 H, Calcium 7.3 L Micro: Microbiology 09/17/21 09:48 Sputum, Induced/Lukens Respiratory Culture - Preliminary Culture exhibits no growth. 09/12/21 14:34 Blood Culture (Wb) - Left Hand Blood Culture - Final No growth in 5 days. 09/12/21 14:35 Blood Culture (Wb) - Anticubital Left Blood Culture - Final Gram positive maria elena 09/12/21 21:13 Urine, Clean Catch Legionella Antigen - Final 09/12/21 21:13 Urine, Clean Catch Streptococcus pneumoniae Antigen (M - Final 09/12/21 14:34 Mucosa - Nasopharyngeal Influenza Types A,B Direct FA (JOSH) - Final 09/12/21 14:34 Nasal Secretion SARS-CoV-2 Antigen (Rapid) - Final SARS-CoV-2 (COVID 19) ABG Data ABG results: ABG 09/17/21 11:02 Specimen Type ART Sample Site R Radial pH 7.30 L Bicarbonate Actual 21.9 L Total CO2 23 Base Excess -4 L O2 Saturation 89 L O2 % 100 ABG pCO2 44.3 ABG pO2 62 L Grayson Test Positive Respiration Rate 14 O2 Delivery Device ET Tube Vent Mode AC Tidal Volume 450 POC PEEP 14 Radiography Diagnostic Testing: Radiology Impression Chest X-Ray 09/17/21 10:12 IMPRESSION: The tip of the endotracheal tube is at 3.4 cm proximal to the shawna. An orogastric tube is seen with the tip in the fundal portion of the stomach. Stable bibasilar pulmonary infiltrates. Electronically Signed: Nicanor Thomas MD at 11:03 EST , Service support , Physical Exam Const Constitutional Narrative: intubated, sedated. Exam Limitations: altered mental status HEENT normocephalic, head/scalp atraumatic and moist oral mucous membranes Head and Scalp: normocephalic Eyes PERRL, EOMs intact bilaterally and conjunctivae normal Neck no lymphadenopathy and supple Resp Resp Narrative: Diminished breath sounds bibasilarly. No wheezes or crackles. intubated, sedated Cardio regular rate, regular rhythm, S1 normal heart sound, S2 normal heart sound and n o murmurs GI normal to inspection, nondistended, normoactive bowel sounds, soft to palpation, non-tender and non-distended Extremity normal to inspection, full ROM and no clubbing, cyanosis or edema Skin no rashes or lesions noted and no wounds Neuro CN's II-XII intact bilaterally and moves all extremities Neuro Narrative: lethargic Sensorium / Orientation: awake and alert Psych affect normal Assessment & Plan Assessment/Plan (1) Acute respiratory failure with hypoxia: (2) COVID-19: PLAN: #Acute hypoxic respiratory failure due to covid 19 pneumonia * emergently intubated yesterday o/a of worsening respiratory status. * ID and pulmonology on board * not a candidate for both remdesivir and baricitinib due to CKD and immunosuppression respectively * diurese as needed to maintain euvolemic status * sputum culture pending; started on IV meropenem #JAMES on CKD stage III, with severe hyperkalemia * Potassium is up to 7.2 today and bicarb is 19 * Creatinine is up to 4.28 from 1.36. * Patient will need emergent dialysis. Dialysis catheter inserted * nephrology consulted * #Acute metabolic encephalopathy * gabapentin on hold, as it was thought to be contributory. * CT of the head was also negative * will monitor * #Elevated D dimer * on lovenox 85mg daily. 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 Follow-up with oncology on outpatient basis. #Nutrition: on tube feeding DVT prophylaxis: Lovenox sc 85mg daily Charges/Coding Visit Charges Inpatient E&M: 85776 Subs Hosp L3
--- NOTE | 2021-09-18 11:46 | CON.PCM.RE_ITS ---
Assessment & Plan Assessment/Plan (1) Acute respiratory failure with hypoxia: (2) COVID-19: (3) Encephalopathy: (4) Acute renal insufficiency: (5) Hyperkalemia: PLAN: Patient has developed acute kidney injury superimposed on CKD stage III in the setting of COVID-19 pneumonia, hypotension, likely JAMES is prerenal. Baseline creatinine is around 1.5 mg/dL. Creatinine was near baseline on admission but has worsened over the last 24 hours. K+ is up to 7, bicarb 19. Initially patient was nonoliguric however over the last 12 hours or so urine output is now less. Non-tunneled HD catheter placed today and patient started on HD today over 2hours, no UF on 2k bath. We will plan for dialysis likely again tomorrow. Initially blood pressures were normotensive but now patient is hypotensive. Not on any antihypertensives. We will not remove any fluid with HD today. I spoke to patient's son Mango (POA) regarding JAMES, dialysis. Questions answered. Mango expressed that should HD be nursing home his father would not want to be kept alive by a machine. on decadon, antibiotic meropenem We will continue to monitor renal function daily and follow for possible renal recovery. Thank you for allowing up to participate in the care of Mr. Solorzano. Further orders forthcoming as hospitalization evolves. HPI Consult Data Date of Consult: 09/18/21 HPI Narrative HPI Narrative: HUMBERTO SOLORZANO, is a 71 M who was brought to the hospital on September 12 for confusion. Patient has past medical history significant for hypertension and leukemia. He was admitted for acute hypoxic respiratory failure secondary to COVID-19, COVID-19 pneumonia. We were consulted for acute kidney injury. Patient is on ventilator support. Information gathered from the chart. I also contacted patient's son Mango. In reviewing patient's past creatinine trends patient has had elevated creatinine since 2019. 11/29/2019 creatinine 1.39 mg/dL, 06/07/2020 creatinine 1.52, 10/23/2020 creatinine 1.53 and 02/25/2021 creatinine 1.56. On admission, 09/12/2021 creatinine 1.87. Yesterday, 09/17/2021 creatinine was 1.36 mg/dL however today patient's creatinine is up to 4.28 mg/dL, potassium 7.2 and bicarb 19. [facility] Medical History Cholecystectomy planned HTN (hypertension) Leukemia Medical History unable to obtain Home Medications gabapentin 600 mg PO TIDCM 01/29/19 [History Last Taken 09/19/20] sildenafil [Viagra] 100 mg PO PRN PRN 01/29/19 [History Last Taken Unknown] carboxymethylcellulose sodium 15 ml OP 4X/DAY 07/19/20 [History Last Taken 09/19/20] latanoprost 1 drp EACH EYE QHS 09/19/20 [History Last Taken 09/18/20] omega-3 fatty acids-fish oil 3 ea PO DAILY 09/19/20 [History Last Taken 1 11/20/19] amlodipine [Norvasc] 5 mg PO DAILY 09/12/21 [History Last Taken Unknown] ibrutinib [Imbruvica] 420 mg PO DAILY 09/12/21 [History Last Taken Unknown] Allergy/AdvReac Type Severity Reaction Status Date / Time No Known Allergies Allergy Verified 09/12/21 14:07 Family History unable to obtain Surgical History unable to obtain Social History Smoking Status: Former smoker ROS ROS Narrative Unable to be obtained, patient on vent Physical Exam Narrative Const: intubated Resp: Diminished breath sounds Extremity: No pitting edema : Indwelling foely with clear yellow urine in bag non-tunneled temporary HD catheter dressing C/D/I Lab / Micro Data Result Diagrams: 09/18/21 05:55 09/18/21 07:20 Labs: Laboratory Results - last 24 hr 09/17/21 03:00: Diff Path Review Reviewed 09/17/21 03:00: Total Creatine Kinase 36 L, Triglycerides 308 H 09/17/21 12:05: POC Glucose 326 H 09/17/21 16:45: POC Glucose 342 H 09/17/21 23:53: POC Glucose 363 H 09/18/21 05:25: Sodium Cancelled, Potassium Cancelled, Chloride Cancelled, Carbon Dioxide Cancelled, Anion Gap Cancelled, BUN Cancelled, Creatinine Cancelled, Estim Creat Clear Calc Cancelled, Est GFR (MDRD) Af Amer Cancelled, Est GFR (MDRD) Non-Af Cancelled, BUN/Creatinine Ratio Cancelled, Glucose Cancelled, Calcium Cancelled 09/18/21 05:55: WBC 13.4 H, RBC 4.95, Hgb 16.3, Hct 49.6, MCV 100.2 H D, MCH 32.9 H, MCHC 32.9, RDW Std Deviation 49.1 H, RDW Coeff of Zarina 13.2, Plt Count 210, MPV 13.5 H, Neut % (Auto) Not Reportable, Absolute Neuts (auto) 11.7 H, Absolute Lymphs (auto) 0.94, Total Counted 100, Neutrophils % (Manual) 87 H, Lymphocytes % (Manual) 7 L, Monocytes % (Manual) 4, Myelocytes % 1 H, Promyelocy kaushal % 1 H, Diff Path Review February, Platelet Estimate ADEQUATE, RBC Morphology NORM C+C 09/18/21 06:11: POC Glucose 353 H 09/18/21 07:20: Sodium 134 L, Potassium 7.2 H*, Chloride 103, Carbon Dioxide 19.0 L, Anion Gap 12, BUN 112 H*, Creatinine 4.28 H, Estim Creat Clear Calc 14.80, Est GFR (MDRD) Af Amer 18 L, Est GFR (MDRD) Non-Af 15 L, BUN/Creatinine Ratio 26.2 H, Glucose 387 H, Calcium 7.3 L Micro: Microbiology 09/17/21 09:48 Sputum, Induced/Lukens Gram Stain - Final 09/17/21 09:48 Sputum, Induced/Lukens Respiratory Culture - Preliminary Culture exhibits no growth. 09/12/21 14:34 Blood Culture (Wb) - Left Hand Blood Culture - Final No growth in 5 days. 09/12/21 14:35 Blood Culture (Wb) - Anticubital Left Blood Culture - Final Gram positive maria elena Radiology Impression Chest X-Ray 09/18/21 10:33 IMPRESSION: The tip of the right central catheter is at the junction of the superior vena cava and right atrium. Pneumomediastinum as well as subcutaneous emphysema overlying the inferior aspect of the cervical region. Stable appearance of the lungs. Electronically Signed: Nicanor Thomas MD at 10:55 EST , Service support ,
[2021-09-18 13:26] LABS: Bedside Glucose 189 mg/dL (70-110)
[2021-09-18] MEDS: Heparin 10,000 UNITS/10 ML Vial 1400 UNITS IV (13:58)
[2021-09-18 15:07] LABS: Hepatitis B Surface Antibody Non-Reactive; Hepatitis B Surface Antigen Non-Reactive (Nonreactive)
[2021-09-18] MEDS: Propofol 10MG/Ml 1,000 MG/100 ML Bottle 2.6 MG CONT INF (17:30)
--- NOTE | 2021-09-18 18:28 | EKG12_ITS ---
Test Reason : ARRYTHMIA Blood Pressure : / mmHG Vent. Rate : 143 BPM Atrial Rate : 174 BPM P-R Int : 000 ms QRS Dur : 092 ms QT Int : 312 ms P-R-T Axes : 000 049 046 degrees QTc Int : 481 ms Normal sinus rhythm with PAF Atrial fibrillation with rapid ventricular response Abnormal ECG When compared with ECG of 18-SEP-2021 18:28, MANUAL COMPARISON REQUIRED, DATA IS UNCONFIRMED Confirmed by ELISHA STRICKLAND, PHILIPPE ([id number]), technical writer and editor IZAIAH BROWNING ([id number]) on 09/23/2021 8:19:17 AM Referred By: WEBBER Confirmed By:PHILIPPE TELLO MD
--- NOTE | 2021-09-18 18:29 | EKG12_ITS ---
Test Reason : ARRYTHMIA Blood Pressure : / mmHG Vent. Rate : 124 BPM Atrial Rate : 197 BPM P-R Int : 000 ms QRS Dur : 096 ms QT Int : 300 ms P-R-T Axes : 000 055 048 degrees QTc Int : 431 ms Normal sinus rhythm with paroxysmal atrial fibrillation Abnormal ECG When compared with ECG of 16-SEP-2021 03:20, MANUAL COMPARISON REQUIRED, DATA IS UNCONFIRMED Confirmed by ELISHA STRICKLAND, PHILIPPE ([id number]), publication editor IZAIAH BROWNING ([id number]) on 09/23/2021 8:19:08 AM Referred By: WEBBER Confirmed By:PHILIPPE TELLO MD
--- NOTE | 2021-09-18 18:33 | NURSING ---
pt in AFib RVR HR 180s. EKG completed. call to Dr. Fulton, orders recd
[2021-09-18 18:53] LABS: Anion Gap 11 (5-15); BUN 98 mg/dL (7-18); BUN/Creat Ratio 28.2 RATIO (10-20); Calcium,Total 7.3 mg/dL (8.5-10.1); Chloride 105 mmol/L (98-107); Creatinine, Serum 3.48 mg/dL (0.70-1.30); EST Glomerular Filtration Rate 19 mL/min (>60); Est Glom Filt Rate - Afr Amer 22 mL/min (>60); Glucose 294 mg/dL (74-106); Magnesium 2.9 mg/dL (1.6-2.6); Phosphorus 7.2 mg/dL (2.5-4.9); Potassium 5.5 mmol/L (3.5-5.1); Sodium Level 138 mmol/L (136-145)
[2021-09-18 19:46] LABS: Bedside Glucose 241 mg/dL (70-110)
--- NOTE | 2021-09-18 20:28 | NURSING ---
Pt's son/POA Mango called to discuss pt's plan of care. Mango would like to change pt's code status to DNR-CCA with intubation. This nurse explained what this means for pt's care and Mango verbalized understanding. Confirmed with Farideh HAMILTON. Notified Dr. Knight.
--- NOTE | 2021-09-18 20:44 | PCM.HOSP.N ---
Hospitalist Note I talked withThe patient's son who is his POA and clarified his CODE STATUS tonight, patient's son wants the patient to be a DNR CC arrest without reintubation. I also informed him overall that the patient was not doing well and his chances for recovery from this would be very slim.
[2021-09-18] MEDS: Latanoprost 0.005% 1 Bottle 1 DRP EACH EYE (22:37)
[2021-09-18] MEDS: Propofol 10MG/Ml 1,000 MG/100 ML Bottle 10.3 MG CONT INF (23:50)
[2021-09-19] VITALS (40 sets, daily range): BP systolic 67–159; BP diastolic 2–108; PULSE 79–132; RESP 14–29; TEMP 37.6–39; O2SAT 70–95
[2021-09-19] MEDS: Insulin Lispro 100 UNIT/ML INSULN.PEN SC ×5 (00:26→23:28)
[2021-09-19 00:46] LABS: Bedside Glucose 337 mg/dL (70-110)
[2021-09-19 05:04] LABS: Hematocrit 43.8 % (40-54); Hemoglobin 14.3 g/dL (13.0-16.5); Mean Corp Hgb Conc 32.6 g/dL (32-36); Mean Corpuscular Hgb 32.7 pg (27.0-32.0); Mean Corpuscular Volume 100.2 fL (80-94); Mean Platelet Vol. 13.5 fl (6.2-12.0); POSITIVE COUNT YES; POSITIVE DIFFERENTIAL YES; POSITIVE MORPHOLOGY YES; Platelet Count 222 K/mm3 (150-450); RBC Distribution Width CV 13.6 % (11.6-14.6); RBC Distribution Width SD 50.4 fl (35.1-43.9); Red Blood Count 4.37 M/mm3 (4.6-6.2); White Blood Count 17.8 K/mm3 (4.4-11.0)
[2021-09-19] MEDS: TITRATION PARAMETER CHANGE 1 EACH IV (05:15)
[2021-09-19 05:44] LABS: Lymphocyte 2 % (19-41); Metamyelocyte 5 % (0-1); Monocyte 7 % (0-10); Neutrophil-Band 3 % (0-5); Neutrophil-Segmented 83 % (47-70); Total Cells Counted 100 (MANUAL DIFF)
[2021-09-19 05:45] LABS: Differential Indicated MANUAL DIFF
[2021-09-19 05:46] LABS: Absolute Lymphocyte Count 0.36 X10^3/uL (0.83-4.51); Absolute Neutrophil Count 16.2 X10^3/uL (2.0-7.7); Lymphocyte # 0.36 X10^3/ul (0.83-4.51)
[2021-09-19 05:48] LABS: Platelet Estimate ADEQUATE (ADEQ); Red Cell Morphology NORM C+C NORMAL (NORM C&C)
[2021-09-19 06:25] LABS: Anion Gap 14 (5-15); BUN 130 mg/dL (7-18); BUN/Creat Ratio 31.6 RATIO (10-20); Calcium,Total 6.5 mg/dL (8.5-10.1); Chloride 101 mmol/L (98-107); Creatinine, Serum 4.12 mg/dL (0.70-1.30); EST Glomerular Filtration Rate 15 mL/min (>60); Est Glom Filt Rate - Afr Amer 19 mL/min (>60); Estimated Creatinine Clearance 15.38 ml/min; Glucose 482 mg/dL (74-106); Potassium 6.8 mmol/L (3.5-5.1); Sodium Level 135 mmol/L (136-145)
[2021-09-19] MEDS: Insulin Lispro 100 UNIT/ML INSULN.PEN 10 UNIT SC (06:29)
--- NOTE | 2021-09-19 06:50 | PN.CC_ITS ---
Assessment & Plan Assessment/Plan (1) Acute respiratory failure with hypoxia: (2) COVID-19: PLAN: RECOMMENDATIONS: 1. Continue patient on assist control mode of mechanical ventilation. Wean FiO2/PEEP for saturations greater than 90%. 2. Continue antimicrobials as ordered. 3. Continue Decadron to complete 10 days of therapy. 4. Continue Lovenox, dose adjusted for renal function. 5. Continue appropriate GI prophylaxis. 6. Ongoing dialysis support per nephrology recommendations. IMPRESSIONS: 1. Acute hypoxemic respiratory failure secondary to COVID-19 pneumonia The patient initially presented to the hospital on September 12 with altered mentation was subsequently found to be positive for COVID-19. D-dimer was elevated at presentation so the patient was placed on therapeutic Lovenox. CTA chest could not initially be obtained due to underlying renal insufficiency. The patient was not deemed to be a candidate for baricitinib. Unfortunately, the patient's respiratory status continued to decline over the course of his hospitalization, resulting in transfer to the ICU and intubation on September 17. Given his clinical decompensation, empiric antimicrobials were initiated. The patient will be continued on Decadron to complete 10 days of therapy. 2. Acute on chronic kidney disease/hyperkalemia Likely prerenal in etiology and related to acute presentation. The patient is currently being followed by nephrology with ongoing hemodialysis support per their recommendations. 3. Atrial fibrillation with RVR Continue amiodarone as ordered. 4. Advanced age/hypertension/neuropathy/leukemia Complicates care, management, recovery and prognosis. Continue supportive measures as noted above. TIME: 33 minutes of critical care time, independent of procedures, was spent addressing the patient's acute hypoxemic respiratory failure secondary to COVID- 19 pneumonia, acute on chronic kidney disease, atrial fibrillation with RVR, review of all data and collaboration with care team. Subjective Subjective The patient was seen and examined at the bedside this morning. Events from the last 24 hours have been reviewed. Today is vent day #3. The patient remains febrile with a T-max of 101.4 ?F. He is otherwise hemodynamically stable and maintaining appropriate oxygen saturations on assist control with an FiO2 of 75% and PEEP of 14. The patient has had issues overnight with A. fib with RVR. He is currently on an amiodarone infusion. The patient is sedated on propofol and fentanyl. Coffee-ground output was noted from his OG tube overnight. The patient did undergo dialysis yesterday. He is currently documented to be overall net -200 mL for the hospitalization. White count is elevated at 18,000. Potassium this morning was noted to be 6.8 with a BUN of 130 and creatinine of 4.12. Glucose is elevated at 482. Following a family update overnight, the patient's CODE STATUS was updated to DNR CCA. The patient is currently on dev penem, Decadron and therapeutic Lovenox. He was not deemed to be a candidate for baricitinib. Objective Data Objective Data The patient's most recent lab work, culture data and imaging studies have all been personally reviewed. Rapid coronavirus antigen testing was positive on September 12. Sputum culture is currently pending. Vital Signs: Vital Signs Temp Pulse Resp BP Pulse Ox 101.4 F H 94 23 H 113/58 L 93 09/19/21 06:00 09/19/21 06:00 09/19/21 06:00 09/19/21 06:00 09/19/21 06:00 Oxygen Flow Rate (L/min) 60 Oxygen Delivery Method Mechanical Ventilator Weight: 80.2 kg Body Mass Index (BMI) 29.5 Intake & Output: Intake and Output for Last 24 Hours 09/17/21 09/18/21 09/19/21 23:59 23:59 23:59 Intake Total 840.02 / 863.87 1518.49 / 1532.71 425.21 / 425.21 Output Total 1125 / 1125 790 / 790 350 / 350 Balance -284.98 / -261.13 728.49 / 742.71 75.21 / 75.21 Lab / Micro Data Attestation: I reviewed the patient's lab results. Result Diagrams: 09/19/21 04:55 09/19/21 05:45 Labs: Laboratory Results - last 24 hr 09/18/21 06:11: POC Glucose 353 H 09/18/21 07:20: Sodium 134 L, Potassium 7.2 H*, Chloride 103, Carbon Dioxide 1 9.0 L, Anion Gap 12, BUN 112 H*, Creatinine 4.28 H, Estim Creat Clear Calc 14.80, Est GFR (MDRD) Af Amer 18 L, Est GFR (MDRD) Non-Af 15 L, BUN/Creatinine Ratio 26.2 H, Glucose 387 H, Calcium 7.3 L 09/18/21 07:20: Hep Bs Antigen Non-Reactive, Hep Bs Antibody Non-Reactive 09/18/21 13:05: POC Glucose 189 H 09/18/21 17:00: POC Glucose 241 H 09/18/21 18:30: Sodium 138, Potassium 5.5 H, Chloride 105, Carbon Dioxide 22.0, Anion Gap 11, BUN 98 H, Creatinine 3.48 H, Estim Creat Clear Calc 18.20, Est GFR (MDRD) Af Amer 22 L, Est GFR (MDRD) Non-Af 19 L, BUN/Creatinine Ratio 28.2 H, Glucose 294 H, Calcium 7.3 L, Phosphorus 7.2 H, Magnesium 2.9 H 09/19/21 00:23: POC Glucose 337 H 09/19/21 04:55: WBC 17.8 H, RBC 4.37 L, Hgb 14.3, Hct 43.8, MCV 100.2 H, MCH 32.7 H, MCHC 32.6, RDW Std Deviation 50.4 H, RDW Coeff of Zarina 13.6, Plt Count 222, MPV 13.5 H, Neut % (Auto) Not Reportable, Absolute Neuts (auto) 16.2 H, Absolute Lymphs (auto) 0.36 L, Total Counted 100, Neutrophils % (Manual) 83 H, Band Neutrophils % 3, Lymphocytes % (Manual) 2 L, Monocytes % (Manual) 7, Metamyelocytes % 5 H, Diff Path Review May foll, Platelet Estimate ADEQUATE, RBC Morphology NORM C+C 09/19/21 04:55: Sodium Cancelled, Potassium Cancelled, Chloride Cancelled, Carbon Dioxide Cancelled, Anion Gap Cancelled, BUN Cancelled, Creatinine Cance lled, Estim Creat Clear Calc Cancelled, Est GFR (MDRD) Af Amer Cancelled, Est GFR (MDRD) Non-Af Cancelled, BUN/Creatinine Ratio Cancelled, Glucose Cancelled, Calcium Cancelled 09/19/21 05:45: Sodium 135 L, Potassium 6.8 H*, Chloride 101, Carbon Dioxide 20.0 L, Anion Gap 14, BUN 130 H*, Creatinine 4.12 H, Estim Creat Clear Calc 15.38, Est GFR (MDRD) Af Amer 19 L, Est GFR (MDRD) Non-Af 15 L, BUN/Creatinine Ratio 31.6 H, Glucose 482 H*, Calcium 6.5 L* Micro: Microbiology 09/12/21 14:34 Blood Culture (Wb) - Left Hand Blood Culture - Final No growth in 5 days. 09/17/21 09:48 Sputum, Induced/Lukens Gram Stain - Final 09/17/21 09:48 Sputum, Induced/Lukens Respiratory Culture - Preliminary Culture exhibits no growth. 09/12/21 14:35 Blood Culture (Wb) - Anticubital Left Blood Culture - Final Gram positive maria elena 09/12/21 21:13 Urine, Clean Catch Legionella Antigen - Final 09/12/21 21:13 Urine, Clean Catch Streptococcus pneumoniae Antigen (M - Final 09/12/21 14:34 Mucosa - Nasopharyngeal Influenza Types A,B Direct FA (JOSH) - Final 09/12/21 14:34 Nasal Secretion SARS-CoV-2 Antigen (Rapid) - Final SARS-CoV-2 (COVID 19) Radiography Diagnostic Testing: Radiology Impression Chest X-Ray 09/18/21 10:33 IMPRESSION: The tip of the right central catheter is at the junction of the superior vena cava and right atrium. Pneumomediastinum as well as subcutaneous emphysema overlying the inferior aspect of the cervical region. Stable appearance of the lungs. Electronically Signed: Nicanor Thomas MD at 10:55 EST , Service support , Physical Exam Const General Appearance: ill appearing, intubated and patient mechanically ventilated Nutritional Appearance: overweight HEENT normocephalic and head/scalp atraumatic Mouth: dry mucous membranes, endotracheal tube in place and OG tube in place Eyes PERRL, EOMs intact bilaterally and conjunctivae normal Neck supple General: trachea midline Chest inspection of chest normal Resp Effort and Inspection: tachypneic Auscultation: rales and diminished lung sounds Cardio regular rate and regular rhythm GI normal to inspection, nondistended, normoactive bowel sounds Extremity no clubbing, cyanosis or edema Skin no rashes or lesions noted Neuro Sensorium / Orientation: sedated on vent Charges/Coding Procedures Hospitalists Procedures: [id number] Critial Care 1st Hr
[2021-09-19 07:05] LABS: Bedside Glucose 449 mg/dL (70-110)
[2021-09-19 07:05] LABS: Bedside Glucose 455 mg/dL (70-110)
[2021-09-19] MEDS: Propofol 10MG/Ml 1,000 MG/100 ML Bottle 9.6 MG CONT INF ×2 (08:49→15:54)
[2021-09-19] MEDS: Enoxaparin 100 MG/ML Syringe 85 MG SC (08:50)
[2021-09-19] MEDS: dexAMETHasone 10 MG/ML Vial 6 MG IV (08:51)
[2021-09-19] MEDS: Glycerin/Hypromellose/PEG400 15 ml Bottle 1 DRP OPHTHALMIC ×4 (08:52→20:19)
[2021-09-19 09:52] LABS: Pathologist Review Reviewed
--- NOTE | 2021-09-19 10:09 | PN.HOSP_ITS ---
Subjective Subjective Patient seen and examined. He remains intubated and sedated. Patient is tachypneic with respiratory rate of 25 today. He has dark coffee-ground aspirate from his NG tube. Patient's CODE STATUS was changed to DNR CC-A no inubation overnight. Objective Data Objective Data Vital Signs: Vital Signs Temp Pulse Resp BP Pulse Ox 101.7 F H 94 25 H 83/53 L 93 09/19/21 07:00 09/19/21 07:26 09/19/21 07:26 09/19/21 07:00 09/19/21 07:26 Oxygen Flow Rate (L/min) 60 Oxygen Delivery Method Mechanical Ventilator Weight: 176 lb 12.972 oz Body Mass Index (BMI) 29.5 Intake & Output: Intake and Output for Last 24 Hours 09/17/21 09/18/21 09/19/21 23:59 23:59 23:59 Intake Total 840.02 / 863.87 1518.49 / 1532.71 634.75 / 634.75 Output Total 1125 / 1125 790 / 790 350 / 350 Balance -284.98 / -261.13 728.49 / 742.71 284.75 / 284.75 Lab / Micro Data Result Diagrams: 09/19/21 04:55 09/19/21 05:45 Labs: Laboratory Results - last 24 hr 09/18/21 05:55: Diff Path Review Reviewed 09/18/21 07:20: Hep Bs Antigen Non-Reactive, Hep Bs Antibody Non-Reactive 09/18/21 13:05: POC Glucose 189 H 09/18/21 17:00: POC Glucose 241 H 09/18/21 18:30: Sodium 138, Potassium 5.5 H, Chloride 105, Carbon Dioxide 22.0, Anion Gap 11, BUN 98 H, Creatinine 3.48 H, Estim Creat Clear Calc 18.20, Est GFR (MDRD) Af Amer 22 L, Est GFR (MDRD) Non-Af 19 L, BUN/Creatinine Ratio 28.2 H, Glucose 294 H, Calcium 7.3 L, Phosphorus 7.2 H, Magnesium 2.9 H 09/19/21 00:23: POC Glucose 337 H 09/19/21 04:55: WBC 17.8 H, RBC 4.37 L, Hgb 14.3, Hct 43.8, MCV 100.2 H, MCH 32.7 H, MCHC 32.6, RDW Std Deviation 50.4 H, RDW Coeff of Zarina 13.6, Plt Count 222, MPV 13.5 H, Neut % (Auto) Not Reportable, Absolute Neuts (auto) 16.2 H, Absolute Lymphs (auto) 0.36 L, Total Counted 100, Neutrophils % (Manual) 83 H, Band Neutrophils % 3, Lymphocytes % (Manual) 2 L, Monocytes % (Manual) 7, Met amyelocytes % 5 H, Diff Path Review February, Platelet Estimate ADEQUATE, RBC Morphology NORM C+C 09/19/21 04:55: Sodium Cancelled, Potassium Cancelled, Chloride Cancelled, Carbon Dioxide Cancelled, Anion Gap Cancelled, BUN Cancelled, Creatinine Cancelled, Estim Creat Clear Calc Cancelled, Est GFR (MDRD) Af Amer Cancelled, Est GFR (MDRD) Non-Af Cancelled, BUN/Creatinine Ratio Cancelled, Glucose Cancelled, Calcium Cancelled 09/19/21 05:45: Sodium 135 L, Potassium 6.8 H*, Chloride 101, Carbon Dioxide 20.0 L, Anion Gap 14, BUN 130 H*, Creatinine 4.12 H, Estim Creat Clear Calc 15.38, Est GFR (MDRD) Af Amer 19 L, Est GFR (MDRD) Non-Af 15 L, BUN/Creatinine Ratio 31.6 H, Glucose 482 H*, Calcium 6.5 L* 09/19/21 06:11: POC Glucose 455 H* 09/19/21 06:15: POC Glucose 449 H Micro: Microbiology 09/17/21 09:48 Sputum, Induced/Lukens Gram Stain - Final 09/17/21 09:48 Sputum, Induced/Lukens Respiratory Culture - Final Culture exhibits no growth. 09/12/21 14:34 Blood Culture (Wb) - Left Hand Blood Culture - Final No growth in 5 days. 09/12/21 14:35 Blood Culture (Wb) - Anticubital Left Blood Culture - Final Gram positive maria elena 09/12/21 21:13 Urine, Clean Catch Legionella Antigen - Final 09/12/21 21:13 Urine, Clean Catch Streptococcus pneumoniae Antigen (M - Final 09/12/21 14:34 Mucosa - Nasopharyngeal Influenza Types A,B Direct FA (JOSH) - Final 09/12/21 14:34 Nasal Secretion SARS-CoV-2 Antigen (Rapid) - Final SARS-CoV-2 (COVID 19) Radiography Diagnostic Testing: Radiology Impression Chest X-Ray 09/18/21 10:33 IMPRESSION: The tip of the right central catheter is at the junction of the superior vena cava and right atrium. Pneumomediastinum as well as subcutaneous emphysema overlying the inferior aspect of the cervical region. Stable appearance of the lungs. Electronically Signed: Nicanor Thomas MD at 10:55 EST , Service support , Physical Exam Const Constitutional Narrative: intubated, sedated. Exam Limitations: altered mental status HEENT normocephalic, head/scalp atraumatic and moist oral mucous membranes Head and Scalp: normocephalic Eyes PERRL, EOMs intact bilaterally and conjunctivae normal Neck no lymphadenopathy and supple Resp Resp Narrative: Diminished breath sounds bibasilarly. No wheezes or crackles. intubated, sedated. tachypneic Cardio regular rate, regular rhythm, S1 normal heart sound, S2 normal heart sound and no murmurs GI normal to inspection, nondistended, normoactive bowel sounds, soft to palpation, non-tender and non-distended Extremity normal to inspection, full ROM and no clubbing, cyanosis or edema Peripheral Pulses: Yes pulses 2+ throughout Skin no rashes or lesions noted and no wounds Neuro Neuro Narrative: intubated, sedated, RASS score is -4 Assessment & Plan Assessment/Plan (1) Acute respiratory failure with hypoxia: (2) COVID-19: PLAN: #Acute hypoxic respiratory failure due to covid 19 pneumonia * remains intubated and sedated. * ID and pulmonology on board * not a candidate for both remdesivir and baricitinib due to CKD and immunosuppression respectively * diurese as needed to maintain euvolemic status * sputum culture pending; on IV meropenem * continue decadron to complete 10 days of treatment #A. fib with RVR * Patient went into A. fib with RVR overnight and started on amiodarone infusion. * #JAMES on CKD stage III, with severe hyperkalemia * potassium today is 6.8, with Cr of 4.12 * he had emergent dialysis yesterday * nephrology on board * * #Elevated D dimer * on lovenox 85mg daily.WIll hold o/a of coffee ground aspirate from NG tube * #History of leukemia: On ibrutinib. Follow-up with oncology on outpatient basis. #Nutrition: on tube feeding #GI prophylaxis: PPI DVT prophylaxis: Lovenox sc 85mg daily CODE STATUS: CODE STATUS were to DNR CCA no intubation by family yesterday. Charges/Coding Visit Charges Inpatient E&M: 35740 Subs Hosp L3
[2021-09-19] MEDS: Acetaminophen 650 MG/20 ML UDC GT (11:53)
[2021-09-19] MEDS: Heparin 10,000 UNITS/10 ML Vial IV (11:56)
[2021-09-19 12:06] LABS: Bedside Glucose 231 mg/dL (70-110)
--- NOTE | 2021-09-19 13:52 | DIALYSIS ---
HD tx 3hrs completed, pt stable. Total UF +850ml d/t low BP throughout tx. Report given to JOY Rangel.
--- NOTE | 2021-09-19 15:02 | CASEMGMT ---
Social Work SW attended pt rounds. Pt continues to be intubated. After rounds SW placed call to pt son German for support. VM left with information that SW is available should needs arise. DEWEY Thornton
--- NOTE | 2021-09-19 15:55 | PN.RENAL_ITS ---
Subjective Subjective Following for JAMES on CKD. The patient was dialyzed earlier today. However, blood pressure dropped necessitating initiation of IV pressor. The patient remains on mechanical ventilator. Cannot do ROS. Objective Data Objective Data Vital Signs: Vital Signs Temp Pulse Resp BP Pulse Ox 101.3 F H 85 22 H 129/2 H 94 09/19/21 13:00 09/19/21 14:09 09/19/21 14:09 09/19/21 14:09 09/19/21 14:09 Oxygen Flow Rate (L/min) 60 Oxygen Delivery Method Mechanical Ventilator Weight: 80.2 kg Body Mass Index (BMI) 29.5 Intake & Output: Intake and Output for Last 24 Hours 09/17/21 09/18/21 09/19/21 23:59 23:59 23:59 Intake Total 840.02 / 863.87 1518.49 / 1532.71 1704.74 / 1704.74 Output Total 1125 / 1125 790 / 790 350 / 350 Balance -284.98 / -261.13 728.49 / 742.71 1354.74 / 1354.74 Lab / Micro Data Result Diagrams: 09/19/21 04:55 09/19/21 05:45 Labs: Laboratory Results - last 24 hr 09/18/21 05:55: Diff Path Review Reviewed 09/18/21 17:00: POC Glucose 241 H 09/18/21 18:30: Sodium 138, Potassium 5.5 H, Chloride 105, Carbon Dioxide 22.0, Anion Gap 11, BUN 98 H, Creatinine 3.48 H, Estim Creat Clear Calc 18.20, Est GFR (MDRD) Af Amer 22 L, Est GFR (MDRD) Non-Af 19 L, BUN/Creatinine Ratio 28.2 H, Glucose 294 H, Calcium 7.3 L, Phosphorus 7.2 H, Magnesium 2.9 H 09/19/21 00:23: POC Glucose 337 H 09/19/21 04:55: WBC 17.8 H, RBC 4.37 L, Hgb 14.3, Hct 43.8, MCV 100.2 H, MCH 32.7 H, MCHC 32.6, RDW Std Deviation 50.4 H, RDW Coeff of Zarina 13.6, Plt Count 222, MPV 13.5 H, Neut % (Auto) Not Reportable, Absolute Neuts (auto) 16.2 H, Absolute Lymphs (auto) 0.36 L, Total Counted 100, Neutrophils % (Manual) 83 H, Band Neutrophils % 3, Lymphocytes % (Manual) 2 L, Monocytes % (Manual) 7, Metamyelocytes % 5 H, Diff Path Review May foll, Platelet Estimate ADEQUATE, RBC Morphology NORM C+C 09/19/21 04:55: Sodium Cancelled, Potassium Cancelled, Chloride Cancelled, Carbon Dioxide Cancelled, Anion Gap Cancelled, BUN Cancelled, Creatinine Cancelled, Estim Creat Clear Calc Cancelled, Est GFR (MDRD) Af Amer Cancelled, Est GFR (MDRD) Non-Af Cancelled, BUN/Creatinine Ratio Cancelled, Glucose Cancelled, Calcium Cancelled 09/19/21 05:45: Sodium 135 L, Potassium 6.8 H*, Chloride 101, Carbon Dioxide 20.0 L, Anion Gap 14, BUN 130 H*, Creatinine 4.12 H, Estim Creat Clear Calc 15.38, Est GFR (MDRD) Af Amer 19 L, Est GFR (MDRD) Non-Af 15 L, BUN/Creatinine Ratio 31.6 H, Glucose 482 H*, Calcium 6.5 L* 09/19/21 06:11: POC Glucose 455 H* 09/19/21 06:15: POC Glucose 449 H 09/19/21 11:42: POC Glucose 231 H Micro: Microbiology 09/18/21 08:00 Urine Catheter - Miranda Urine Culture - Preliminary Culture exhibits no growth. 09/17/21 09:48 Sputum, Induced/Lukens Gram Stain - Final 09/17/21 09:48 Sputum, Induced/Lukens Respiratory Culture - Final Culture exhibits no growth. 09/12/21 14:34 Blood Culture (Wb) - Left Hand Blood Culture - Final No growth in 5 days. 09/12/21 14:35 Blood Culture (Wb) - Anticubital Left Blood Culture - Final Gram positive maria elena 09/12/21 21:13 Urine, Clean Catch Legionella Antigen - Final 09/12/21 21:13 Urine, Clean Catch Streptococcus pneumoniae Antigen (M - Final 09/12/21 14:34 Mucosa - Nasopharyngeal Influenza Types A,B Direct FA (JOSH) - Final 09/12/21 14:34 Nasal Secretion SARS-CoV-2 Antigen (Rapid) - Final SARS-CoV-2 (COVID 19) Physical Exam Narrative General: On mechanical ventilator, sedated. HEENT: Intubated, mucous membrane moist. Neck: Supple, no JVD. Heart: Normal S1, S2. No rubs or murmurs. Lungs: Coarse breath sound bilaterally. Extremity: 1+ edema in the lower extremity. Assessment & Plan Assessment/Plan (1) JAMES (acute kidney injury): (2) Chronic kidney disease, stage 3b: (3) Hyperkalemia: (4) Acute respiratory failure with hypoxia: (5) COVID-19: PLAN: Nephrology Plan: -Patient has developed acute kidney injury superimposed on CKD stage III in the setting of COVID-19 pneumonia, hypotension. -Baseline creatinine is around 1.5 mg/dL. -JAMES is likely due to ischemic ATN. -Dialysis was initiated yesterday (09/18/2021) because of JAMES and hyperkalemia. -I supervised the second dialysis treatment today. However, the patient became hypotensive during the treatment requiring initiation of IV pressor. We were unable to remove much fluid because of this. -Plan on third dialysis treatment tomorrow depending on the patient tolerance with his blood pressure. -Recheck renal function and potassium level tomorrow. I spoke to patient's son Mango (POA) regarding JAMES, dialysis. Questions answered. Mango expressed that should HD be long-term his father would not want to be kept alive by a machine. on decadon, antibiotic meropenem -We will continue to monitor renal function daily and follow for possible renal recovery. -Thank you for allowing up to participate in the care of Mr. Solorzano.
[2021-09-19 17:30] LABS: Bedside Glucose 355 mg/dL (70-110)
--- NOTE | 2021-09-19 20:00 | NURSING ---
RIJ temporary dialysis catheter, DDI.
[2021-09-19] MEDS: Latanoprost 0.005% 1 Bottle 1 DRP EACH EYE (20:19)
--- NOTE | 2021-09-19 20:20 | NURSING ---
Assessment completed. PT with large amount of crepitis noted to left neck, and anterior chest. Lung sounds diminished throughout.
[2021-09-19] MEDS: Chlorhexidine 15 ML PO (20:37)
[2021-09-19 23:40] LABS: Bedside Glucose 403 mg/dL (70-110)
[2021-09-20] VITALS (32 sets, daily range): BP systolic 84–148; BP diastolic 53–82; PULSE 70–114; RESP 14–34; TEMP 37–38.5; O2SAT 26–93
[2021-09-20] MEDS: Propofol 10MG/Ml 1,000 MG/100 ML Bottle 4.8 MG CONT INF (01:33)
[2021-09-20] MEDS: Amiodarone 200 MG Tablet NG ×2 (01:34→08:51)
[2021-09-20] MEDS: 0.9% Saline Lock 10 ML Syringe IV ×2 (02:54→22:08)
[2021-09-20] MEDS: Acetaminophen 650 MG/20 ML UDC GT ×2 (02:57→08:59)
[2021-09-20 06:19] LABS: Hematocrit 38.1 % (40-54); Hemoglobin 12.5 g/dL (13.0-16.5); Mean Corp Hgb Conc 32.8 g/dL (32-36); Mean Corpuscular Hgb 32.6 pg (27.0-32.0); Mean Corpuscular Volume 99.2 fL (80-94); Mean Platelet Vol. 13.6 fl (6.2-12.0); POSITIVE COUNT YES; POSITIVE DIFFERENTIAL YES; POSITIVE MORPHOLOGY YES; Platelet Count 180 K/mm3 (150-450); RBC Distribution Width CV 13.4 % (11.6-14.6); RBC Distribution Width SD 48.8 fl (35.1-43.9); Red Blood Count 3.84 M/mm3 (4.6-6.2); White Blood Count 14.6 K/mm3 (4.4-11.0)
[2021-09-20 06:21] LABS: Magnesium 2.8 mg/dL (1.6-2.6)
[2021-09-20 06:25] LABS: Differential Indicated MANUAL DIFF
[2021-09-20 06:29] LABS: Phosphorus 7.1 mg/dL (2.5-4.9)
[2021-09-20 06:31] LABS: Lymphocyte 4 % (19-41); Metamyelocyte 5 % (0-1); Monocyte 2 % (0-10); Neutrophil-Segmented 89 % (47-70); Total Cells Counted 100 (MANUAL DIFF)
[2021-09-20 06:32] LABS: Absolute Neutrophil Count 13.7 X10^3/uL (2.0-7.7)
[2021-09-20 06:33] LABS: Absolute Lymphocyte Count 0.58 X10^3/uL (0.83-4.51); Lymphocyte # 0.58 X10^3/ul (0.83-4.51); Platelet Estimate ADEQUATE (ADEQ); Red Cell Morphology NORM C+C NORMAL (NORM C&C)
--- NOTE | 2021-09-20 06:47 | PN.CC_ITS ---
Assessment & Plan Assessment/Plan (1) Acute respiratory failure with hypoxia: (2) COVID-19: PLAN: RECOMMENDATIONS: 1. Continue patient on assist control mode of mechanical ventilation. Wean FiO2/PEEP for saturations greater than 90%. 2. Continue antimicrobials as ordered. 3. Continue Decadron to complete 10 days of therapy. 4. Continue Lovenox, dose adjusted for renal function. 5. Continue appropriate GI prophylaxis. 6. Ongoing dialysis support per nephrology recommendations. 7. Continue amiodarone. 8. Ongoing goals of care discussions with the patient's family. IMPRESSIONS: 1. Acute hypoxemic respiratory failure secondary to COVID-19 pneumonia The patient initially presented to the hospital on September 12 with altered mentation was subsequently found to be positive for COVID-19. D-dimer was elevated at presentation so the patient was placed on therapeutic Lovenox. CTA chest could not initially be obtained due to underlying renal insufficiency. The patient was not deemed to be a candidate for baricitinib. Unfortunately, the patient's respiratory status continued to decline over the course of his hospitalization, resulting in transfer to the ICU and intubation on September 17. Given his clinical decompensation, empiric antimicrobials were initiated. The patient will be continued on Decadron to complete 10 days of therapy. 2. Acute on chronic kidney disease/hyperkalemia Likely prerenal in etiology and related to acute presentation. The patient is currently being followed by nephrology with ongoing hemodialysis support per their recommendations. 3. Atrial fibrillation with RVR Continue amiodarone as ordered. The patient is currently in normal sinus rhythm. 4. Advanced age/hypertension/neuropathy/leukemia Complicates care, management, recovery and prognosis. Continue supportive measures as noted above. TIME: 36 minutes of critical care time, independent of procedures, was spent addressing the patient's acute hypoxemic respiratory failure secondary to COVID- 19 pneumonia, acute on chronic kidney disease, atrial fibrillation with RVR, review of all data and collaboration with care team. Subjective Subjective The patient was seen and examined at the bedside this morning. Events from the last 24 hours have been reviewed. Today is vent day #4. The patient currently has a low-grade fever but remains hemodynamically stable off of vasopressor support. The patient remains on assist control mode of mechanical ventilation with an FiO2 requirement of 65% and PEEP of 10. The patient is currently sedated on propofol and fentanyl. The patient was dialyzed yesterday. He is currently documented to be overall net +1.4 L for the hospitalization. The patient is currently on meropenem, Decadron and therapeutic Lovenox. He was not deemed to be a candidate for baricitinib. I did speak at length with the patient's son, German, this morning via telephone. He is concerned that he is not honoring his father's wishes after reviewing his living will. However, after my discussion with him, German wanted to wait a couple more days to see how his father progressed with possible recovery. If, at that time, no significant improvement is made, he has plans to withdraw care. Objective Data Objective Data The patient's most recent lab work, culture data and imaging studies have all been personally reviewed. Rapid coronavirus antigen testing was positive on September 12. Sputum culture has demonstrated no growth to date. Vital Signs: Vital Signs Temp Pulse Resp BP Pulse Ox 100.8 F H 79 30 H 122/65 H 90 09/20/21 06:00 09/20/21 06:00 09/20/21 06:00 09/20/21 06:00 09/20/21 06:00 Oxygen Flow Rate (L/min) 60 Oxygen Delivery Method Mechanical Ventilator Weight: 80.2 kg Body Mass Index (BMI) 29.5 Intake & Output: Intake and Output for Last 24 Hours 09/18/21 09/19/21 09/20/21 23:59 23:59 23:59 Intake Total 1518.49 / 1532.71 2262.89 / 2262.89 216.00 / 216.00 Output Total 790 / 790 725 / 725 Balance 728.49 / 742.71 1537.89 / 1537.89 216.00 / 216.00 Lab / Micro Data Attestation: I reviewed the patient's lab results. Result Diagrams: 09/20/21 05:00 09/20/21 05:00 Labs: Laboratory Results - last 24 hr 09/18/21 05:55: Diff Path Review Reviewed 09/19/21 06:11: POC Glucose 455 H* 09/19/21 06:15: POC Glucose 449 H 09/19/21 11:42: POC Glucose 231 H 09/19/21 17:10: POC Glucose 355 H 09/19/21 23:27: POC Glucose 403 H 09/20/21 05:00: Magnesium 2.8 H 09/20/21 05:00: Phosphorus 7.1 H 09/20/21 05:00: WBC 14.6 H, RBC 3.84 L, Hgb 12.5 L, Hct 38.1 L, MCV 99.2 H, MCH 32.6 H, MCHC 32.8, RDW Std Deviation 48.8 H, RDW Coeff of Zarina 13.4, Plt Count 180, MPV 13.6 H, Neut % (Auto) Not Reportable, Absolute Neuts (auto) 13.7 H, Absolute Lymphs (auto) 0.58 L, Total Counted 100, Neutrophils % (Manual) 89 H, Lymphocytes % (Manual) 4 L, Monocytes % (Manual) 2, Metamyelocytes % 5 H, Diff Path Review May foll, Platelet Estimate ADEQUATE, RBC Morphology NORM C+C Micro: Microbiology 09/18/21 08:00 Urine Catheter - Miranda Urine Culture - Preliminary Culture exhibits no growth. 09/17/21 09:48 Sputum, Induced/Lukens Gram Stain - Final 09/17/21 09:48 Sputum, Induced/Lukens Respiratory Culture - Final Culture exhibits no growth. 09/12/21 14:34 Blood Culture (Wb) - Left Hand Blood Culture - Final No growth in 5 days. 09/12/21 14:35 Blood Culture (Wb) - Anticubital Left Blood Culture - Final Gram positive maria elena 09/12/21 21:13 Urine, Clean Catch Legionella Antigen - Final 09/12/21 21:13 Urine, Clean Catch Streptococcus pneumoniae Antigen (M - Final 09/12/21 14:34 Mucosa - Nasopharyngeal Influenza Types A,B Direct FA (JOSH) - Final 09/12/21 14:34 Nasal Secretion SARS-CoV-2 Antigen (Rapid) - Final SARS-CoV-2 (COVID 19) Physical Exam Const General Appearance: ill appearing, intubated and patient mechanically ventilated Nutritional Appearance: overweight HEENT normocephalic and head/scalp atraumatic Mouth: dry mucous membranes, endotracheal tube in place and OG tube in place Eyes PERRL, EOMs intact bilaterally and conjunctivae normal Neck supple General: trachea midline and CVC in place Chest inspection of chest normal Resp Effort and Inspection: tachypneic Auscultation: rales and diminished lung sounds Cardio regular rate and regular rhythm GI normal to inspection, nondistended, normoactive bowel sounds Extremity no clubbing, cyanosis or edema Skin no rashes or lesions noted Neuro Sensorium / Orientation: sedated on vent Charges/Coding Procedures Hospitalists Procedures: 32834 Critial Care 1st Hr
[2021-09-20 06:55] LABS: Anion Gap 16 (5-15); BUN 140 mg/dL (7-18); BUN/Creat Ratio 31.2 RATIO (10-20); Calcium,Total 6.2 mg/dL (8.5-10.1); Chloride 97 mmol/L (98-107); Creatinine, Serum 4.48 mg/dL (0.70-1.30); EST Glomerular Filtration Rate 14 mL/min (>60); Est Glom Filt Rate - Afr Amer 17 mL/min (>60); Estimated Creatinine Clearance 14.14 ml/min; Glucose 530 mg/dL (74-106); Potassium 5.6 mmol/L (3.5-5.1); Sodium Level 133 mmol/L (136-145)
[2021-09-20] MEDS: Enoxaparin 100 MG/ML Syringe 85 MG SC (08:50)
[2021-09-20] MEDS: dexAMETHasone 10 MG/ML Vial 6 MG IV (08:51)
[2021-09-20] MEDS: Chlorhexidine 15 ML PO ×2 (08:53→22:08)
[2021-09-20] MEDS: Insulin Lispro 100 UNIT/ML INSULN.PEN 10 UNIT SC (09:01)
[2021-09-20] MEDS: Insulin Lispro 100 UNIT/ML INSULN.PEN SC ×3 (09:01→16:54)
[2021-09-20] MEDS: Glycerin/Hypromellose/PEG400 15 ml Bottle 1 DRP OPHTHALMIC ×4 (09:03→22:07)
--- NOTE | 2021-09-20 10:53 | PN.HOSP_ITS ---
Subjective Subjective Patient seen and examined. He remains intubated and sedated. He had a low- grade fever today. Patient is now off pressors. He is on FiO2 of 65% and PEEP of 10. He had dialysis yesterday. Objective Data Objective Data Vital Signs: Vital Signs Temp Pulse Resp BP Pulse Ox 100.8 F H 79 30 H 111/73 90 09/20/21 06:00 09/20/21 07:00 09/20/21 07:00 09/20/21 07:00 09/20/21 07:00 Oxygen Flow Rate (L/min) 60 Oxygen Delivery Method Mechanical Ventilator Weight: 176 lb 12.972 oz Body Mass Index (BMI) 29.5 Intake & Output: Intake and Output for Last 24 Hours 09/18/21 09/19/21 09/20/21 23:59 23:59 23:59 Intake Total 1518.49 / 1532.71 2262.89 / 2262.89 273.10 / 273.10 Output Total 790 / 790 725 / 725 100 / 100 Balance 728.49 / 742.71 1537.89 / 1537.89 173.10 / 173.10 Lab / Micro Data Result Diagrams: 09/20/21 05:00 09/20/21 05:00 Labs: Laboratory Results - last 24 hr 09/19/21 11:42: POC Glucose 231 H 09/19/21 17:10: POC Glucose 355 H 09/19/21 23:27: POC Glucose 403 H 09/20/21 05:00: Magnesium 2.8 H 09/20/21 05:00: Phosphorus 7.1 H 09/20/21 05:00: WBC 14.6 H, RBC 3.84 L, Hgb 12.5 L, Hct 38.1 L, MCV 99.2 H, MCH 32.6 H, MCHC 32.8, RDW Std Deviation 48.8 H, RDW Coeff of Zarina 13.4, Plt Count 180, MPV 13.6 H, Neut % (Auto) Not Reportable, Absolute Neuts (auto) 13.7 H, Absolute Lymphs (auto) 0.58 L, Total Counted 100, Neutrophils % (Manual) 89 H, Lymphocytes % (Manual) 4 L, Monocytes % (Manual) 2, Metamyelocytes % 5 H, Diff Path Review May foll, Platelet Estimate ADEQUATE, RBC Morphology NORM C+C 09/20/21 05:00: Sodium 133 L, Potassium 5.6 H, Chloride 97 L, Carbon Dioxide 20.0 L, Anion Gap 16 H, BUN 140 H*, Creatinine 4.48 H, Estim Creat Clear Calc 14.14, Est GFR (MDRD) Af Amer 17 L, Est GFR (MDRD) Non-Af 14 L, BUN/Creatinine Ratio 31.2 H, Glucose 530 H*, Calcium 6.2 L* Micro: Microbiology 09/18/21 08:00 Urine Catheter - Miranda Urine Culture - Final Culture exhibits no growth. 09/17/21 09:48 Sputum, Induced/Lukens Gram Stain - Final 09/17/21 09:48 Sputum, Induced/Lukens Respiratory Culture - Final Culture exhibits no growth. 09/12/21 14:34 Blood Culture (Wb) - Left Hand Blood Culture - Final No growth in 5 days. 09/12/21 14:35 Blood Culture (Wb) - Anticubital Left Blood Culture - Final Gram positive maria elena 09/12/21 21:13 Urine, Clean Catch Legionella Antigen - Final 09/12/21 21:13 Urine, Clean Catch Streptococcus pneumoniae Antigen (M - Final 09/12/21 14:34 Mucosa - Nasopharyngeal Influenza Types A,B Direct FA (JOSH) - Final 09/12/21 14:34 Nasal Secretion SARS-CoV-2 Antigen (Rapid) - Final SARS-CoV-2 (COVID 19) Physical Exam Const Constitutional Narrative: intubated, sedated. Exam Limitations: altered mental status HEENT normocephalic, head/scalp atraumatic and moist oral mucous membranes Eyes PERRL, EOMs intact bilaterally and conjunctivae normal Neck no lymphadenopathy and supple Resp no retractions, no use of accessory muscles and clear to auscultation bilaterally Resp Narrative: Diminished breath sounds bibasilarly. No wheezes or crackles. intubated, sedated. tachypneic Cardio regular rate, regular rhythm, S1 normal heart sound, S2 normal heart sound and no murmurs GI normal to inspection, nondistended, normoactive bowel sounds, soft to palpation, non-tender and non-distended Extremity normal to inspection, full ROM and no clubbing, cyanosis or edema Skin no rashes or lesions noted and no wounds Neuro Neuro Narrative: intubated, sedated, RASS score is -4 Assessment & Plan Assessment/Plan (1) Acute respiratory failure with hypoxia: (2) COVID-19: PLAN: #Acute hypoxic respiratory failure due to covid 19 pneumonia * remains intubated and sedated. * ID and pulmonology on board * not a candidate for both remdesivir and baricitinib due to CKD and immunosuppression respectively * diurese as needed to maintain euvolemic status * sputum culture pending; on IV meropenem * continue decadron to complete 10 days of treatment #Septic shock due ot covid 19 pneumonia * now off levophed drip. * #A. fib with RVR * Patient went into A. fib with RVR and started on amiodarone infusion. * off amiodarone drip. Now in NSR. on PO amiodarone * cardiology on board * #JAMES on CKD stage III, with severe hyperkalemia * potassium today is 5.6, with Cr of 4.48 today * had dialysis yesterday. * nephrology on board * * #Elevated D dimer * on lovenox 85mg daily. 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 Follow-up with oncology on outpatient basis. #Nutrition: on tube feeding #GI prophylaxis: PPI DVT prophylaxis: Lovenox sc 85mg daily CODE STATUS: DNRCCA Charges/Coding Visit Charges Inpatient E&M: 37723 Subs Hosp L3
[2021-09-20 12:40] LABS: Bedside Glucose 300 mg/dL (70-110)
--- NOTE | 2021-09-20 16:15 | DIALYSIS ---
Hemodialysis x3 hours ended at 1350 on a 1K bath x1hr then a 2K bath, tolerated poorly, hypotensive, Levophed restarted 1.5 hours into tx, still unable to run even, gain of 500mL, stopped tx 30 mins early due to hypotension (79/57), accessed via right neck temporary dialysis catheter, positional, worked fair with lines reversed, max BFR 250-300
[2021-09-20 17:11] LABS: Bedside Glucose 305 mg/dL (70-110)
[2021-09-20] MEDS: Latanoprost 0.005% 1 Bottle 1 DRP EACH EYE (22:08)
[2021-09-21] VITALS (47 sets, daily range): BP systolic 63–162; BP diastolic 44–87; PULSE 75–128; RESP 14–28; TEMP 37.1–38.5; O2SAT 88–93
[2021-09-21] MEDS: Insulin Lispro 100 UNIT/ML INSULN.PEN SC ×4 (00:28→16:21)
--- NOTE | 2021-09-21 01:54 | NURSING ---
Addendum entered by Xiang Marsh 09/21/21 01:55: *On 09/20 @ 1914 Original Note: When this RN came on shift @ 1914, levophed was not running, which was not reflected on the MAR. Pt's BP stable.
[2021-09-21] MEDS: Propofol 10MG/Ml 1,000 MG/100 ML Bottle 14.4 MG CONT INF (02:24)
[2021-09-21 02:25] LABS: Bedside Glucose 386 mg/dL (70-110)
[2021-09-21 04:21] LABS: Hematocrit 34.6 % (40-54); Hemoglobin 12.1 g/dL (13.0-16.5); Mean Corpuscular Hgb 33.2 pg (27.0-32.0); Mean Corpuscular Volume 95.1 fL (80-94); POSITIVE COUNT YES; POSITIVE DIFFERENTIAL YES; POSITIVE MORPHOLOGY YES; Platelet Count 165 K/mm3 (150-450); RBC Distribution Width CV 13.2 % (11.6-14.6); Red Blood Count 3.64 M/mm3 (4.6-6.2)
[2021-09-21 04:25] LABS: Phosphorus 6.5 mg/dL (2.5-4.9)
[2021-09-21 04:29] LABS: Anion Gap 12 (5-15); BUN 123 mg/dL (7-18); BUN/Creat Ratio 33.3 RATIO (10-20); Chloride 97 mmol/L (98-107); Creatinine, Serum 3.69 mg/dL (0.70-1.30); EST Glomerular Filtration Rate 17 mL/min (>60); Est Glom Filt Rate - Afr Amer 21 mL/min (>60); Estimated Creatinine Clearance 17.17 ml/min; Glucose 399 mg/dL (74-106); Magnesium 2.6 mg/dL (1.6-2.6); Potassium 5.1 mmol/L (3.5-5.1); Sodium Level 133 mmol/L (136-145)
[2021-09-21 04:32] LABS: Differential Indicated MANUAL DIFF
[2021-09-21] MEDS: TITRATION PARAMETER CHANGE 1 EACH IV (04:48)
[2021-09-21] MEDS: Propofol 10MG/Ml 1,000 MG/100 ML Bottle 14.9 MG CONT INF ×3 (05:31→16:32)
[2021-09-21 05:51] LABS: Lymphocyte 1 % (19-41); Metamyelocyte 3 % (0-1); Monocyte 1 % (0-10); Neutrophil-Band 6 % (0-5); Neutrophil-Segmented 89 % (47-70); Nucleated Red Bld Cells,Manual 1 % (0-5); Total Cells Counted 100 (MANUAL DIFF)
[2021-09-21 05:53] LABS: Absolute Neutrophil Count 20.6 X10^3/uL (2.0-7.7)
[2021-09-21 05:54] LABS: Absolute Lymphocyte Count 0.21 X10^3/uL (0.83-4.51); Lymphocyte # 0.21 X10^3/ul (0.83-4.51); Platelet Estimate ADEQUATE (ADEQ)
[2021-09-21 05:55] LABS: Red Cell Morphology NORM C+C NORMAL (NORM C&C)
--- NOTE | 2021-09-21 06:40 | PN.CC_ITS ---
Assessment & Plan Assessment/Plan (1) Acute respiratory failure with hypoxia: (2) COVID-19: PLAN: RECOMMENDATIONS: 1. Continue patient on assist control mode of mechanical ventilation. Wean FiO2/PEEP for saturations greater than 90%. 2. Continue antimicrobials as ordered. 3. Continue Decadron to complete 10 days of therapy. 4. Continue Lovenox, dose adjusted for renal function. 5. Continue appropriate GI prophylaxis. 6. Ongoing dialysis support per nephrology recommendations. 7. Continue amiodarone. 8. Ongoing goals of care discussions with the patient's family. 9. Continue tube feeds. IMPRESSIONS: 1. Acute hypoxemic respiratory failure secondary to COVID-19 pneumonia The patient initially presented to the hospital on September 12 with altered mentation was subsequently found to be positive for COVID-19. D-dimer was e levated at presentation so the patient was placed on therapeutic Lovenox. CTA chest could not initially be obtained due to underlying renal insufficiency. The patient was not deemed to be a candidate for baricitinib. Unfortunately, the patient's respiratory status continued to decline over the course of his hospitalization, resulting in transfer to the ICU and intubation on September 17. Given his clinical decompensation, empiric antimicrobials were initiated. The patient will be continued on Decadron to complete 10 days of therapy. Continue tube feeds as tolerated. 2. Acute on chronic kidney disease/hyperkalemia Likely prerenal in etiology and related to acute presentation. The patient is currently being followed by nephrology with ongoing hemodialysis support per their recommendations. 3. Atrial fibrillation with RVR Continue amiodarone as ordered. The patient is currently in normal sinus rhythm. 4. Advanced age/hypertension/neuropathy/leukemia Complicates care, management, recovery and prognosis. Continue supportive measures as noted above. TIME: 34 minutes of critical care time, independent of procedures, was spent addressing the patient's acute hypoxemic respiratory failure secondary to COVID- 19 pneumonia, acute on chronic kidney disease, atrial fibrillation with RVR, review of all data and collaboration with care team. Subjective Subjective The patient was seen and examined at the bedside this morning. Events from the last 24 hours have been reviewed. Today is vent day #5. The patient is currently afebrile and hemodynamically stable. He has been intermittently in and out of atrial fibrillation. The patient did tolerate dialysis yesterday, but did require vasopressor support during his session. He remains on assist control mode mechanical ventilation with an FiO2 requirement of 65% and PEEP of 14. The patient is currently sedated on propofol and fentanyl. He is currently documented to be overall net +1.7 L for the hospitalization. The patient remains on antimicrobials along with Decadron and Lovenox. He was not deemed to be a candidate for baricitinib. White count is elevated at 21,000. I did speak at length with the patient's son, German, on Wednesday the . He was concerned that he was not honoring his father's wishes after reviewing his living will. However, after my discussion with him, German wanted to wait a couple more days to see how his father progressed with possible recovery. If, at that time, no significant improvement is made, he has plans to withdraw care. Objective Data Objective Data The patient's most recent lab work, culture data and imaging studies have all been personally reviewed. Rapid coronavirus antigen testing was positive on September 12. Sputum culture has demonstrated no growth to date. Vital Signs: Vital Signs Temp Pulse Resp BP Pulse Ox 99.1 F 128 H 25 H 109/72 90 09/21/21 06:00 09/21/21 06:00 09/21/21 06:00 09/21/21 06:00 09/21/21 06:00 Oxygen Flow Rate (L/min) 60 Oxygen Delivery Method Mechanical Ventilator Weight: 82.6 kg Body Mass Index (BMI) 29.5 Intake & Output: Intake and Output for Last 24 Hours 09/19/21 09/20/21 09/21/21 23:59 23:59 23:59 Intake Total 2262.89 / 2262.89 1449.39 / 1452.10 131.89 / 131.89 Output Total 725 / 725 525 / 795 545 / 545 Balance 1537.89 / 1537.89 924.39 / 657.10 -413.11 / -413.11 Lab / Micro Data Attestation: I reviewed the patient's lab results. Result Diagrams: 09/21/21 03:45 09/21/21 03:45 Labs: Laboratory Results - last 24 hr 09/20/21 05:00: Sodium 133 L, Potassium 5.6 H, Chloride 97 L, Carbon Dioxide 20.0 L, Anion Gap 16 H, BUN 140 H*, Creatinine 4.48 H, Estim Creat Clear Calc 14.14, Est GFR (MDRD) Af Amer 17 L, Est GFR (MDRD) Non-Af 14 L, BUN/Creatinine Ratio 31.2 H, Glucose 530 H*, Calcium 6.2 L* 09/20/21 12:26: POC Glucose 300 H 09/20/21 16:52: POC Glucose 305 H 09/21/21 00:24: POC Glucose 386 H 09/21/21 03:45: WBC 21.0 H, RBC 3.64 L, Hgb 12.1 L, Hct 34.6 L, MCV 95.1 H, MCH 33.2 H, MCHC 35.0 D, RDW Std Deviation 46.0 H, RDW Coeff of Zarina 13.2, Plt Count 165, MPV 13.0 H, Neut % (Auto) Not Reportable, Absolute Neuts (auto) 20.6 H, Absolute Lymphs (auto) 0.21 L, Total Counted 100, Neutrophils % (Manual) 89 H, Band Neutrophils % 6 H, Lymphocytes % (Manual) 1 L, Monocytes % (Manual) 1, Metamyelocytes % 3 H, Nucleated RBCs/100 WBC 1, Diff Path Review February, Platelet Estimate ADEQUATE, RBC Morphology NORM C+C 09/21/21 03:45: Sodium 133 L, Potassium 5.1, Chloride 97 L, Carbon Dioxide 24.0, Anion Gap 12, BUN 123 H*, Creatinine 3.69 H, Estim Creat Clear Calc 17.17, Est GFR (MDRD) Af Amer 21 L, Est GFR (MDRD) Non-Af 17 L, BUN/Creatinine Ratio 33.3 H , Glucose 399 H, Calcium 6.0 L*, Magnesium 2.6 09/21/21 03:45: Phosphorus 6.5 H Micro: Microbiology 09/18/21 08:00 Urine Catheter - Miranda Urine Culture - Final Culture exhibits no growth. 09/17/21 09:48 Sputum, Induced/Lukens Gram Stain - Final 09/17/21 09:48 Sputum, Induced/Lukens Respiratory Culture - Final Culture exhibits no growth. 09/12/21 14:34 Blood Culture (Wb) - Left Hand Blood Culture - Final No growth in 5 days. 09/12/21 14:35 Blood Culture (Wb) - Anticubital Left Blood Culture - Final Gram positive maria elena 09/12/21 21:13 Urine, Clean Catch Legionella Antigen - Final 09/12/21 21:13 Urine, Clean Catch Streptococcus pneumoniae Antigen (M - Final 09/12/21 14:34 Mucosa - Nasopharyngeal Influenza Types A,B Direct FA (JOSH) - Final 09/12/21 14:34 Nasal Secretion SARS-CoV-2 Antigen (Rapid) - Final SARS-CoV-2 (COVID 19) Physical Exam Const General Appearance: ill appearing, intubated and patient mechanically ventilated Nutritional Appearance: overweight HEENT normocephalic and head/scalp atraumatic Mouth: dry mucous membranes, endotracheal tube in place and OG tube in place Eyes PERRL, EOMs intact bilaterally and conjunctivae normal Neck supple General: trachea midline and CVC in place Chest Chest Narrative: + Crepitus Resp Effort and Inspection: tachypneic Auscultation: rales and diminished lung sounds Cardio regular rate and regular rhythm GI normal to inspection, nondistended, normoactive bowel sounds Extremity no clubbing, cyanosis or edema Skin no rashes or lesions noted Neuro Sensorium / Orientation: sedated on vent Charges/Coding Procedures Hospitalists Procedures: [id number] Critial Care 1st Hr
[2021-09-21] MEDS: Chlorhexidine 15 ML PO ×2 (08:13→22:00)
[2021-09-21] MEDS: Glycerin/Hypromellose/PEG400 15 ml Bottle 1 DRP OPHTHALMIC ×4 (08:13→22:00)
[2021-09-21] MEDS: Amiodarone 200 MG Tablet NG (08:14)
[2021-09-21] MEDS: Enoxaparin 100 MG/ML Syringe 85 MG SC (08:14)
[2021-09-21] MEDS: dexAMETHasone 10 MG/ML Vial 6 MG IV (08:15)
--- NOTE | 2021-09-21 10:06 | PN.RENAL_ITS ---
Subjective Subjective Following for JAMES. The patient remains intubated in ICU. Cannot do ROS. Objective Data Objective Data Vital Signs: Vital Signs Temp Pulse Resp BP Pulse Ox 99.1 F 84 26 H 109/72 90 09/21/21 06:00 09/21/21 07:14 09/21/21 07:14 09/21/21 06:00 09/21/21 07:14 Oxygen Flow Rate (L/min) 60 Oxygen Delivery Method Mechanical Ventilator Weight: 82.6 kg Body Mass Index (BMI) 29.5 Intake & Output: Intake and Output for Last 24 Hours 09/19/21 09/20/21 09/21/21 23:59 23:59 23:59 Intake Total 2262.89 / 2262.89 1449.39 / 1452.10 241.89 / 241.89 Output Total 725 / 725 525 / 795 545 / 545 Balance 1537.89 / 1537.89 924.39 / 657.10 -303.11 / -303.11 Lab / Micro Data Result Diagrams: 09/21/21 03:45 09/21/21 03:45 Labs: Laboratory Results - last 24 hr 09/20/21 12:26: POC Glucose 300 H 09/20/21 16:52: POC Glucose 305 H 09/21/21 00:24: POC Glucose 386 H 09/21/21 03:45: WBC 21.0 H, RBC 3.64 L, Hgb 12.1 L, Hct 34.6 L, MCV 95.1 H, MCH 33.2 H, MCHC 35.0 D, RDW Std Deviation 46.0 H, RDW Coeff of Zarina 13.2, Plt Count 165, MPV 13.0 H, Neut % (Auto) Not Reportable, Absolute Neuts (auto) 20.6 H, Absolute Lymphs (auto) 0.21 L, Total Counted 100, Neutrophils % (Manual) 89 H, Band Neutrophils % 6 H, Lymphocytes % (Manual) 1 L, Monocytes % (Manual) 1, Metamyelocytes % 3 H, Nucleated RBCs/100 WBC 1, Diff Path Review February, Platelet Estimate ADEQUATE, RBC Morphology NORM C+C 09/21/21 03:45: Sodium 133 L, Potassium 5.1, Chloride 97 L, Carbon Dioxide 24.0, Anion Gap 12, BUN 123 H*, Creatinine 3.69 H, Estim Creat Clear Calc 17.17, Est GFR (MDRD) Af Amer 21 L, Est GFR (MDRD) Non-Af 17 L, BUN/Creatinine Ratio 33.3 H , Glucose 399 H, Calcium 6.0 L*, Magnesium 2.6 09/21/21 03:45: Phosphorus 6.5 H Micro: Microbiology 09/18/21 08:00 Urine Catheter - Miranda Urine Culture - Final Culture exhibits no growth. 09/17/21 09:48 Sputum, Induced/Lukens Gram Stain - Final 09/17/21 09:48 Sputum, Induced/Lukens Respiratory Culture - Final Culture exhibits no growth. 09/12/21 14:34 Blood Culture (Wb) - Left Hand Blood Culture - Final No growth in 5 days. 09/12/21 14:35 Blood Culture (Wb) - Anticubital Left Blood Culture - Final Gram positive maria elena 09/12/21 21:13 Urine, Clean Catch Legionella Antigen - Final 09/12/21 21:13 Urine, Clean Catch Streptococcus pneumoniae Antigen (M - Final 09/12/21 14:34 Mucosa - Nasopharyngeal Influenza Types A,B Direct FA (JOSH) - Final 09/12/21 14:34 Nasal Secretion SARS-CoV-2 Antigen (Rapid) - Final SARS-CoV-2 (COVID 19) Physical Exam Narrative General: On mechanical ventilator, sedated. HEENT: Intubated, mucous membrane moist. Neck: Supple, no JVD. Heart: Normal S1, S2. No rubs or murmurs. Lungs: Coarse breath sound bilaterally. Extremity: 1+ edema in the lower extremity. Assessment & Plan Assessment/Plan (1) JAMES (acute kidney injury): (2) Chronic kidney disease, stage 3b: (3) Hyperkalemia: (4) Acute respiratory failure with hypoxia: (5) COVID-19: PLAN: Nephrology Plan: -Patient has developed acute kidney injury superimposed on CKD stage III in the setting of COVID-19 pneumonia, hypotension. -Baseline creatinine is around 1.5 mg/dL. -JAMES is likely due to ischemic ATN. -Dialysis was initiated on 09/18/2021 because of JAMES and hyperkalemia. -The patient has been dialyzed on 09/18, 09/19, and 09/20/2021. We will hold off on hemodialysis today. -We have not been successful at removing much fluid because of hypotension. -We we will plan on dialyzing the patient again tomorrow. We will try to remove more fluid to help with respiratory status tomorrow if BP is better. -Recheck renal function and potassium level tomorrow. -I spoke to patient's son Mango (POA) regarding JAMES, dialysis on 09/19/2021. Questions answered. 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 -We will continue to monitor renal function daily and follow for possible renal recovery. -Thank you for allowing up to participate in the care of Mr. Solorzano.
[2021-09-21 12:00] LABS: Bedside Glucose 385 mg/dL (70-110)
[2021-09-21 12:00] LABS: Bedside Glucose 423 mg/dL (70-110)
--- NOTE | 2021-09-21 14:27 | PN.HOSP_ITS ---
Subjective Subjective Patient seen and examined. Patient remains intubated and sedated as well as tachypneic. He has been in and out of atrial fibrillation. Patient had dialysis yesterday but required Levophed to maintain hemodynamic stability. Objective Data Objective Data Vital Signs: Vital Signs Temp Pulse Resp BP Pulse Ox 100.2 F H 81 25 H 78/59 L 91 09/21/21 12:00 09/21/21 13:36 09/21/21 13:36 09/21/21 12:00 09/21/21 13:36 Oxygen Flow Rate (L/min) 60 Oxygen Delivery Method Mechanical Ventilator Weight: 182 lb 1.629 oz Body Mass Index (BMI) 29.5 Intake & Output: Intake and Output for Last 24 Hours 09/19/21 09/20/21 09/21/21 23:59 23:59 23:59 Intake Total 2262.89 / 2262.89 1449.39 / 1452.10 329.80 / 329.80 Output Total 725 / 725 525 / 795 945 / 945 Balance 1537.89 / 1537.89 924.39 / 657.10 -615.20 / -615.20 Lab / Micro Data Result Diagrams: 09/21/21 03:45 09/21/21 03:45 Labs: Laboratory Results - last 24 hr 09/20/21 16:52: POC Glucose 305 H 09/21/21 00:24: POC Glucose 386 H 09/21/21 03:45: WBC 21.0 H, RBC 3.64 L, Hgb 12.1 L, Hct 34.6 L, MCV 95.1 H, MCH 33.2 H, MCHC 35.0 D, RDW Std Deviation 46.0 H, RDW Coeff of Zarina 13.2, Plt Count 165, MPV 13.0 H, Neut % (Auto) Not Reportable, Absolute Neuts (auto) 20.6 H, Absolute Lymphs (auto) 0.21 L, Total Counted 100, Neutrophils % (Manual) 89 H, Band Neutrophils % 6 H, Lymphocytes % (Manual) 1 L, Monocytes % (Manual) 1, Metamyelocytes % 3 H, Nucleated RBCs/100 WBC 1, Diff Path Review February, Platelet Estimate ADEQUATE, RBC Morphology NORM C+C 09/21/21 03:45: Sodium 133 L, Potassium 5.1, Chloride 97 L, Carbon Dioxide 24.0, Anion Gap 12, BUN 123 H*, Creatinine 3.69 H, Estim Creat Clear Calc 17.17, Est GFR (MDRD) Af Amer 21 L, Est GFR (MDRD) Non-Af 17 L, BUN/Creatinine Ratio 33.3 H , Glucose 399 H, Calcium 6.0 L*, Magnesium 2.6 09/21/21 03:45: Phosphorus 6.5 H 09/21/21 06:11: POC Glucose 385 H 09/21/21 11:43: POC Glucose 423 H Micro: Microbiology 09/18/21 08:00 Urine Catheter - Miranda Urine Culture - Final Culture exhibits no growth. 09/17/21 09:48 Sputum, Induced/Lukens Gram Stain - Final 09/17/21 09:48 Sputum, Induced/Lukens Respiratory Culture - Final Culture exhibits no growth. 09/12/21 14:34 Blood Culture (Wb) - Left Hand Blood Culture - Final No growth in 5 days. 09/12/21 14:35 Blood Culture (Wb) - Anticubital Left Blood Culture - Final Gram positive maria elena 09/12/21 21:13 Urine, Clean Catch Legionella Antigen - Final 09/12/21 21:13 Urine, Clean Catch Streptococcus pneumoniae Antigen (M - Final 09/12/21 14:34 Mucosa - Nasopharyngeal Influenza Types A,B Direct FA (JOSH) - Final 09/12/21 14:34 Nasal Secretion SARS-CoV-2 Antigen (Rapid) - Final SARS-CoV-2 (COVID 19) Physical Exam Const Constitutional Narrative: intubated, sedated. Exam Limitations: altered mental status HEENT normocephalic, head/scalp atraumatic and moist oral mucous membranes Eyes conjunctivae normal Neck no lymphadenopathy and supple Resp Resp Narrative: Diminished breath sounds bibasilarly. No wheezes or crackles. intubated, sedated. tachypneic Cardio regular rate, regular rhythm, S1 normal heart sound, S2 normal heart sound and no murmurs GI normal to inspection, nondistended, normoactive bowel sounds, soft to palpation, non-tender and non-distended Extremity normal to inspection, full ROM and no clubbing, cyanosis or edema Peripheral Pulses: Yes pulses 2+ throughout Skin no rashes or lesions noted and no wounds Neuro Neuro Narrative: intubated, sedated, RASS score is -4 Assessment & Plan Assessment/Plan (1) Acute respiratory failure with hypoxia: (2) COVID-19: PLAN: #Acute hypoxic respiratory failure due to covid 19 pneumonia * remains intubated and sedated. * ID and pulmonology on board * not a candidate for both remdesivir and baricitinib due to CKD and immunosuppression respectively * diurese as needed to maintain euvolemic status * sputum culture negative.; on IV meropenem * continue decadron to complete 10 days of treatment #Septic shock due ot covid 19 pneumonia * now off levophed drip. * #A. fib with RVR * Patient went into A. fib with RVR and started on amiodarone infusion. * off amiodarone drip. Now in NSR. on PO amiodarone * cardiology on board * #JAMES on CKD stage III, with severe hyperkalemia * potassium today is 5.1 with Cr of 3.69 today. BUN is 123 * had dialysis yesterday. * nephrology on board * #Elevated D dimer * on lovenox 85mg daily. * #Hypocalcemia: Calcium is 6 today. 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 Follow-up with oncology on outpatient basis. #Nutrition: on tube feeding #GI prophylaxis: PPI DVT prophylaxis: Lovenox sc 85mg daily CODE STATUS: DNRCCA Charges/Coding Visit Charges Inpatient E&M: 12839 Subs Hosp L3
[2021-09-21] MEDS: Calcium Gluconate 1 GM/10 ML Vial 2 GM IV (16:23)
[2021-09-21] MEDS: NEPRO TUBE FEED 1,000 ML 15 ML GT (16:35)
[2021-09-21 16:51] LABS: Bedside Glucose 475 mg/dL (70-110)
[2021-09-21] MEDS: Insulin Lispro 100 UNIT/ML INSULN.PEN 10 UNIT SC (17:44)
[2021-09-21] MEDS: Latanoprost 0.005% 1 Bottle 1 DRP EACH EYE (22:00)
[2021-09-22] VITALS (25 sets, daily range): BP systolic 61–115; BP diastolic 44–98; PULSE 85–91; RESP 14–37; TEMP 38.6–39.2; O2SAT 89–92
[2021-09-22] MEDS: Insulin Lispro 100 UNIT/ML INSULN.PEN 18 UNIT SC (00:30)
[2021-09-22 02:11] LABS: Bedside Glucose 469 mg/dL (70-110)
[2021-09-22 03:09] LABS: Hematocrit 35.5 % (40-54); Mean Corp Hgb Conc 33.8 g/dL (32-36); Mean Corpuscular Hgb 33.1 pg (27.0-32.0); Mean Corpuscular Volume 98.1 fL (80-94); Mean Platelet Vol. 13.8 fl (6.2-12.0); POSITIVE COUNT YES; POSITIVE DIFFERENTIAL YES; POSITIVE MORPHOLOGY YES; Platelet Count 231 K/mm3 (150-450); RBC Distribution Width CV 13.5 % (11.6-14.6); RBC Distribution Width SD 48.4 fl (35.1-43.9); Red Blood Count 3.62 M/mm3 (4.6-6.2); White Blood Count 27.7 K/mm3 (4.4-11.0)
[2021-09-22 03:10] LABS: Differential Indicated MANUAL DIFF
[2021-09-22] MEDS: Acetaminophen 650 MG/20 ML UDC GT ×2 (03:11→10:23)
[2021-09-22 03:38] LABS: Absolute Neutrophil Count 23.5 X10^3/uL (2.0-7.7)
[2021-09-22 03:39] LABS: Absolute Lymphocyte Count 0.55 X10^3/uL (0.83-4.51); Lymphocyte 2 % (19-41); Monocyte 7 % (0-10); Myelocyte 4 % (0-0); Neutrophil-Segmented 85 % (47-70); Nucleated Red Bld Cells,Manual 2 % (0-5); Platelet Estimate ADEQUATE (ADEQ); Promyelocyte 2 % (0-0); Red Cell Morphology NORM C+C NORMAL (NORM C&C); Total Cells Counted 100 (MANUAL DIFF)
[2021-09-22 04:10] LABS: Anion Gap 16 (5-15); Calcium,Total 6.7 mg/dL (8.5-10.1); Chloride 96 mmol/L (98-107); Creatinine, Serum 5.37 mg/dL (0.70-1.30); EST Glomerular Filtration Rate 11 mL/min (>60); Est Glom Filt Rate - Afr Amer 14 mL/min (>60); Glucose 478 mg/dL (74-106); Phosphorus 8.8 mg/dL (2.5-4.9); Potassium 6.5 mmol/L (3.5-5.1); Sodium Level 131 mmol/L (136-145)
[2021-09-22] MEDS: TITRATION PARAMETER CHANGE 1 EACH IV (05:08)
[2021-09-22] MEDS: Insulin Lispro 100 UNIT/ML INSULN.PEN SC ×2 (06:23→11:33)
[2021-09-22] MEDS: Insulin Lispro 100 UNIT/ML INSULN.PEN 33 UNIT SC (07:00)
--- NOTE | 2021-09-22 07:08 | PN.CC_ITS ---
Assessment & Plan Assessment/Plan (1) Acute respiratory failure with hypoxia: (2) COVID-19: PLAN: RECOMMENDATIONS: 1. Continue patient on assist control mode of mechanical ventilation. Wean FiO2/PEEP for saturations greater than 90%. 2. Continue antimicrobials as ordered. 3. Continue Decadron to complete 10 days of therapy. 4. Continue Lovenox, dose adjusted for renal function. 5. Continue appropriate GI prophylaxis. 6. Ongoing dialysis support per nephrology recommendations. 7. Continue amiodarone. 8. Ongoing goals of care discussions with the patient's family. 9. Possible palliative measures later today IMPRESSIONS: 1. Acute hypoxemic respiratory failure secondary to COVID-19 pneumonia The patient initially presented to the hospital on September 12 with altered mentation was subsequently found to be positive for COVID-19. D-dimer was elevated at presentation so the patient was placed on therapeutic Lovenox. CTA chest could not initially be obtained due to underlying renal insufficiency. The patient was not deemed to be a candidate for baricitinib. Unfortunately, the patient's respiratory status continued to decline over the course of his hospitalization, resulting in transfer to the ICU and intubation on September 17. Given his clinical decompensation, empiric antimicrobials were initiated. The patient will be continued on Decadron to complete 10 days of therapy. Continue tube feeds as tolerated. Family reportedly is contemplating palliative measures. Await their decision. Patient with very poor prognosis given complications. 2. Acute on chronic kidney disease/hyperkalemia Likely prerenal in etiology and related to acute presentation. The patient is currently being followed by nephrology with ongoing hemodialysis support per their recommendations. Patient did not receive hemodialysis yesterday. This likely accounts for significantly elevated creatinine and potassium 3. Atrial fibrillation with RVR Continue amiodarone as ordered. The patient is currently in normal sinus rhythm. 4. Advanced age/hypertension/neuropathy/leukemia/hyperglycemia Complicates care, management, recovery and prognosis. Continue supportive measures as noted above. Aggressive insulin regimen has been ordered. Addendum 1:35 PM: Discussed with and son about the patient's current condition, prognosis and wishes. After review of the clinical scenario, they anticipate palliative measures in the near future. Patient does have 2 other sons that will be called and offered the opportunity to visit with their father. Anticipate palliative extubation later this afternoon. Medications will be ordered accordingly. TIME: 55 minutes of critical care time, independent of procedures, was spent addressing the patient's acute hypoxemic respiratory failure secondary to COVID- 19 pneumonia, acute on chronic kidney disease, atrial fibrillation with RVR, review of all data and collaboration with care team. Subjective Subjective Patient did not do well overnight. Patient has had a decrease in neurologic responses including lack of cough and gag. Patient does have corneal reflexes. Patient has been on Levophed to maintain blood pressures. Patient did not receive dialysis yesterday. Patient with significant hyperglycemia overnight. Nursing is reporting patient may be made palliative later today given discussions with the family, but I have not spoken with them personally. Objective Data Objective Data Vital Signs: Vital Signs Temp Pulse Resp BP Pulse Ox 38.8 C H 91 32 H 100/65 90 09/22/21 07:00 09/22/21 07:00 09/22/21 07:00 09/22/21 07:00 09/22/21 07:00 Oxygen Flow Rate (L/min) 65 Oxygen Delivery Method Mechanical Ventilator Weight: 83.3 kg Body Mass Index (BMI) 29.5 Intake & Output: Intake and Output for Last 24 Hours 09/20/21 09/21/21 09/22/21 23:59 23:59 23:59 Intake Total 1449.39 / 1452.10 1115.53 / 1127.85 714.61 / 714.61 Output Total 525 / 795 1195 / 1195 130 / 130 Balance 924.39 / 657.10 -79.47 / -67.15 584.61 / 584.61 Lab / Micro Data Result Diagrams: 09/22/21 02:55 09/22/21 02:55 Labs: Laboratory Results - last 24 hr 09/21/21 06:11: POC Glucose 385 H 09/21/21 11:43: POC Glucose 423 H 09/21/21 16:19: POC Glucose 475 H* 09/22/21 00:05: POC Glucose 469 H* 09/22/21 02:55: WBC 27.7 H, RBC 3.62 L, Hgb 12.0 L, Hct 35.5 L, MCV 98.1 H, MCH 33.1 H, MCHC 33.8, RDW Std Deviation 48.4 H, RDW Coeff of Zarina 13.5, Plt Count 231, MPV 13.8 H, Neut % (Auto) Not Reportable, Absolute Neuts (auto) 23.5 H, Absolute Lymphs (auto) 0.55 L, Total Counted 100, Neutrophils % (Manual) 85 H, Lymphocytes % (Manual) 2 L, Monocytes % (Manual) 7, Myelocytes % 4 H, Promyelocytes % 2 H, Nucleated RBCs/100 WBC 2, Diff Path Review May foll, Platelet Estimate ADEQUATE, RBC Morphology NORM C+C 09/22/21 02:55: Sodium 131 L, Potassium 6.5 H*, Chloride 96 L, Carbon Dioxide 19.0 L, Anion Gap 16 H, Creatinine 5.37 H, Estim Creat Clear Calc 11.80, Est GFR (MDRD) Af Amer 14 L, Est GFR (MDRD) Non-Af 11 L, Glucose 478 H*, Calcium 6.7 L, Phosphorus 8.8 H, Magnesium 3.0 H Micro: Microbiology 09/18/21 08:00 Urine Catheter - Miranda Urine Culture - Final Culture exhibits no growth. 09/17/21 09:48 Sputum, Induced/Lukens Gram Stain - Final 09/17/21 09:48 Sputum, Induced/Lukens Respiratory Culture - Final Culture exhibits no growth. 09/12/21 14:34 Blood Culture (Wb) - Left Hand Blood Culture - Final No growth in 5 days. 09/12/21 14:35 Blood Culture (Wb) - Anticubital Left Blood Culture - Final Gram positive maria elena 09/12/21 21:13 Urine, Clean Catch Legionella Antigen - Final 09/12/21 21:13 Urine, Clean Catch Streptococcus pneumoniae Antigen (M - Final 09/12/21 14:34 Mucosa - Nasopharyngeal Influenza Types A,B Direct FA (JOSH) - Final 09/12/21 14:34 Nasal Secretion SARS-CoV-2 Antigen (Rapid) - Final SARS-CoV-2 (COVID 19) Physical Exam Const General Appearance: ill appearing, intubated and patient mechanically ventilated Nutritional Appearance: overweight HEENT normocephalic and head/scalp atraumatic Mouth: dry mucous membranes, endotracheal tube in place and OG tube in place Eyes PERRL, EOMs intact bilaterally and conjunctivae normal Neck supple General: trachea midline and CVC in place Chest Chest: crepitus Resp Effort and Inspection: tachypneic Auscultation: rales and diminished lung sounds Cardio regular rate and regular rhythm GI normal to inspection, nondistended, normoactive bowel sounds Extremity Extremity Narrative: Anasarca General Extremity: edema; Negative for clubbing or cyanosis Skin Skin Narrative: Scattered ecchymotic areas Neuro Sensorium / Orientation: sedated on vent Charges/Coding Procedures Hospitalists Procedures: [id number] Critial Care 1st Hr
[2021-09-22 07:26] LABS: Bedside Glucose 470 mg/dL (70-110)
[2021-09-22] MEDS: Glycerin/Hypromellose/PEG400 15 ml Bottle 1 DRP OPHTHALMIC (08:10)
[2021-09-22] MEDS: Enoxaparin 100 MG/ML Syringe 85 MG SC (08:11)
[2021-09-22] MEDS: Chlorhexidine 15 ML PO (08:14)
[2021-09-22] MEDS: dexAMETHasone 10 MG/ML Vial 6 MG IV (08:17)
[2021-09-22] MEDS: Amiodarone 200 MG Tablet NG (08:19)
[2021-09-22 08:35] LABS: Bedside Glucose 480 mg/dL (70-110)
--- NOTE | 2021-09-22 09:53 | PCM.PN.HOSP ---
Subjective Subjective Follow-up on acute respiratory failure/acute COVID-19 pneumonia: She was seen and examined. Overall he remains hemodynamically stable with worsening hypotension. His hypoxia is also worse. Patient is currently DNR CCA no intubation. Dialysis could not be done today because of temporary catheter not working. Family made him comfort care and he was terminally extubated Objective Data Objective Data Vital Signs: Vital Signs Temp Pulse Resp BP Pulse Ox 102.1 F H 88 24 H 99/72 91 09/22/21 08:00 09/22/21 08:00 09/22/21 08:00 09/22/21 08:00 09/22/21 08:00 Oxygen Flow Rate (L/min) 65 Oxygen Delivery Method Mechanical Ventilator Weight: 83.3 kg Body Mass Index (BMI) 29.5 Intake & Output: Intake and Output for Last 24 Hours 09/20/21 09/21/21 09/22/21 23:59 23:59 23:59 Intake Total 1449.39 / 1452.10 1115.53 / 1127.85 714.61 / 714.61 Output Total 525 / 795 1195 / 1195 130 / 130 Balance 924.39 / 657.10 -79.47 / -67.15 584.61 / 584.61 Lab / Micro Data Result Diagrams: 09/22/21 02:55 09/22/21 02:55 Labs: Laboratory Results - last 24 hr 09/21/21 06:11: POC Glucose 385 H 09/21/21 11:43: POC Glucose 423 H 09/21/21 16:19: POC Glucose 475 H* 09/22/21 00:05: POC Glucose 469 H* 09/22/21 02:55: WBC 27.7 H, RBC 3.62 L, Hgb 12.0 L, Hct 35.5 L, MCV 98.1 H, MCH 33.1 H, MCHC 33.8, RDW Std Deviation 48.4 H, RDW Coeff of Zarina 13.5, Plt Count 231, MPV 13.8 H, Neut % (Auto) Not Reportable, Absolute Neuts (auto) 23.5 H, Absolute Lymphs (auto) 0.55 L, Total Counted 100, Neutrophils % (Manual) 85 H, Lymphocytes % (Manual) 2 L, Monocytes % (Manual) 7, Myelocytes % 4 H, Promyelocytes % 2 H, Nucleated RBCs/100 WBC 2, Diff Path Review May foll, Platelet Estimate ADEQUATE, RBC Morphology NORM C+C 09/22/21 02:55: Sodium 131 L, Potassium 6.5 H*, Chloride 96 L, Carbon Dioxide 19.0 L, Anion Gap 16 H, Creatinine 5.37 H, Estim Creat Clear Calc 11.80, Est GFR (MDRD) Af Amer 14 L, Est GFR (MDRD) Non-Af 11 L, Glucose 478 H*, Calcium 6.7 L, Phosphorus 8.8 H, Magnesium 3.0 H 09/22/21 06:22: POC Glucose 470 H* 09/22/21 08:05: POC Glucose 480 H* Micro: Microbiology 09/18/21 08:00 Urine Catheter - Miranda Urine Culture - Final Culture exhibits no growth. 09/17/21 09:48 Sputum, Induced/Lukens Gram Stain - Final 09/17/21 09:48 Sputum, Induced/Lukens Respiratory Culture - Final Culture exhibits no growth. 09/12/21 14:34 Blood Culture (Wb) - Left Hand Blood Culture - Final No growth in 5 days. 09/12/21 14:35 Blood Culture (Wb) - Anticubital Left Blood Culture - Final Gram positive maria elena 09/12/21 21:13 Urine, Clean Catch Legionella Antigen - Final 09/12/21 21:13 Urine, Clean Catch Streptococcus pneumoniae Antigen (M - Final 09/12/21 14:34 Mucosa - Nasopharyngeal Influenza Types A,B Direct FA (JOSH) - Final 09/12/21 14:34 Nasal Secretion SARS-CoV-2 Antigen (Rapid) - Final SARS-CoV-2 (COVID 19) Physical Exam Narrative Physical exam: General: Sedated, on mechanical ventilator, extensive subcutaneous emphysema overlying the inferior aspect of the cervical region HEENT: Atraumatic Oral: Moist Mucosa Neck: Supple Lungs: Diminished to auscultation Cardiovascular: HS I+II, regular, no murmurs Abdomen: Bowel Sounds Present, Soft, Non Tender Extremities: No edema Assessment & Plan Assessment/Plan (1) Acute respiratory failure with hypoxia: (2) COVID-19: PLAN: 1. Acute hypoxic respiratory failure secondary to Acute Covid-19 pneumonia, worsening ID and pulmonology on board Not candidate for both remdesivir and baricitinib due to CKD and immunosuppression respectively Sputum culture negative.; on IV meropenem Completed Decadron 2. Septic shock secondary to Acute COVID-19 pneumonia Continue on Levophed drip. 3. A. fib with RVR, patient is in normal sinus rhythm, continue amiodarone 4. Elevated D dimer, continue on therapeutic Lovenox 5. Hyperkalemia, K 6.5, unable to do dialysis today, family terminally extubated him 6. History of leukemia Charges/Coding Visit Charges Inpatient E&M: 65705 Subs Hosp L3
--- NOTE | 2021-09-22 09:56 | DIALYSIS ---
Arterial port with tight pull and push. Venous port with no pull or push. Dr. Gregorio and Dr. Todd are both aware. Hold dialysis at this time. JOY Rangel was notified
[2021-09-22 10:22] LABS: Pathologist Review Reviewed
[2021-09-22 10:57] LABS: BUN/Creat Ratio 34.1 RATIO (10-20)
[2021-09-22 10:58] LABS: BUN 183 mg/dL (7-18)
[2021-09-22 11:45] LABS: Bedside Glucose 430 mg/dL (70-110)
--- NOTE | 2021-09-22 13:16 | PCM.PN.REN ---
Subjective Subjective Events noted. He is currently on pressors. Dialysis could not be run this morning due to catheter issues. Worsening septic shock. Hyperkalemia. Worsening pneumomediastinum Objective Data Objective Data Vital Signs: Vital Signs Temp Pulse Resp BP Pulse Ox 102.5 F H 89 36 H 70/48 L 90 09/22/21 12:00 09/22/21 12:00 09/22/21 12:00 09/22/21 12:00 09/22/21 12:00 Oxygen Flow Rate (L/min) 65 Oxygen Delivery Method Mechanical Ventilator Weight: 83.3 kg Body Mass Index (BMI) 29.5 Intake & Output: Intake and Output for Last 24 Hours 09/20/21 09/21/21 09/22/21 23:59 23:59 23:59 Intake Total 1449.39 / 1452.10 1115.53 / 1127.85 824.61 / 824.61 Output Total 525 / 795 1195 / 1195 255 / 255 Balance 924.39 / 657.10 -79.47 / -67.15 569.61 / 569.61 Lab / Micro Data Result Diagrams: 09/22/21 02:55 09/22/21 02:55 Labs: Laboratory Results - last 24 hr 09/19/21 04:55: Diff Path Review Reviewed 09/21/21 16:19: POC Glucose 475 H* 09/22/21 00:05: POC Glucose 469 H* 09/22/21 02:55: WBC 27.7 H, RBC 3.62 L, Hgb 12.0 L, Hct 35.5 L, MCV 98.1 H, MCH 33.1 H, MCHC 33.8, RDW Std Deviation 48.4 H, RDW Coeff of Zarina 13.5, Plt Count 231, MPV 13.8 H, Neut % (Auto) Not Reportable, Absolute Neuts (auto) 23.5 H, Absolute Lymphs (auto) 0.55 L, Total Counted 100, Neutrophils % (Manual) 85 H, Lymphocytes % (Manual) 2 L, Monocytes % (Manual) 7, Myelocytes % 4 H, Promyelocytes % 2 H, Nucleated RBCs/100 WBC 2, Diff Path Review May , Platelet Estimate ADEQUATE, RBC Morphology NORM C+C 09/22/21 02:55: Sodium 131 L, Potassium 6.5 H*, Chloride 96 L, Carbon Dioxide 19.0 L, Anion Gap 16 H, BUN 183 H*, Creatinine 5.37 H, Estim Creat Clear Calc 11.80, Est GFR (MDRD) Af Amer 14 L, Est GFR (MDRD) Non-Af 11 L, BUN/Creatinine Ratio 34.1 H, Glucose 478 H*, Calcium 6.7 L, Phosphorus 8.8 H, Magnesium 3.0 H 09/22/21 06:22: POC Glucose 470 H* 09/22/21 08:05: POC Glucose 480 H* 09/22/21 11:31: POC Glucose 430 H Micro: Microbiology 09/18/21 08:00 Urine Catheter - Miranda Urine Culture - Final Culture exhibits no growth. 09/17/21 09:48 Sputum, Induced/Lukens Gram Stain - Final 09/17/21 09:48 Sputum, Induced/Lukens Respiratory Culture - Final Culture exhibits no growth. 09/12/21 14:34 Blood Culture (Wb) - Left Hand Blood Culture - Final No growth in 5 days. 09/12/21 14:35 Blood Culture (Wb) - Anticubital Left Blood Culture - Final Gram positive maria elena 09/12/21 21:13 Urine, Clean Catch Legionella Antigen - Final 09/12/21 21:13 Urine, Clean Catch Streptococcus pneumoniae Antigen (M - Final 09/12/21 14:34 Mucosa - Nasopharyngeal Influenza Types A,B Direct FA (JOSH) - Final 09/12/21 14:34 Nasal Secretion SARS-CoV-2 Antigen (Rapid) - Final SARS-CoV-2 (COVID 19) Physical Exam Narrative Exam minimized due to Covid Assessment & Plan Assessment/Plan (1) JAMES (acute kidney injury): (2) Chronic kidney disease, stage 3b: (3) Hyperkalemia: (4) Acute respiratory failure with hypoxia: (5) COVID-19: PLAN: Nephrology Plan: -Patient has developed acute kidney injury superimposed on CKD stage III in the setting of COVID-19 pneumonia, hypotension. -Baseline creatinine is around 1.5 mg/dL. -JAMES is likely due to ischemic ATN. -Dialysis was initiated on 09/18/2021 because of JAMES and hyperkalemia. -The patient has been dialyzed on 09/18, 09/19, and 09/20/2021. Worsening clinical status. Severe septic shock. Hyperkalemia. Worsening oxygenation. Catheter issues. Goals of care discussion with family today.
--- NOTE | 2021-09-22 13:45 | CASEMGMT ---
Social Work SW participated in ICU rounds this morning. SW participated in meeting w/pt's and middle son German. Family decided to terminally extubate pt. German states the other two sons do not want to be here. Pt's son went to have a cigarette before extubating pt, SW and squeezer operator stayed and spoke w/, offered support. SW remains available for support to family. GENEVIEVE Clarke
--- NOTE | 2021-09-22 14:15 | NURSING ---
Dr Todd had family meeting, will withdraw care per Family wishe
--- NOTE | 2021-09-22 14:30 | NURSING ---
pt ,family @ bedside
--- NOTE | 2021-09-22 15:42 | CHAPLAIN ---
Type of Pastoral Visit ___ Initial Visit ___ Follow-up Visit ___ On-call Visit ___ General Patient Visit ___ Spiritual Assessment _x__ Family Conference ___ Bereavement ___ Rapid Response ___ Code Blue ___ Other (describe below) Pastoral Care Referral From ___ Patient ___ Family _x__ Nurse ___ Physician ___ Browning Processor ___ Tobacco Buyer ___ Other (describe below) Sacrament/Intervention _x__ Active listening ___ Anointing ___ Restorationism ___ Bereavement ___ Communion ___ [place] exploration ___ _x__ Life review ___ Prayer ___ Reconciliation ___ Sacrament of Sick _x__ Supportive presence ___ Wedding ___ Other (describe below) Pastoral Comments met with family during conference when option of withdrawal of care is presented; family decision made to withdrawal care; offer of presence and prayer given; family did not seek further support at this time; checked on situation after pt and no further support requested
--- NOTE | 2021-09-22 16:17 | PCM.DEATH ---
Preliminary Cause of Preliminary Cause of Preliminary Cause of : Acute hypoxic respiratory failure secondary to acute COVID-19 pneumonia Acute pneumomediastinum Hyperkalemia Date of Admission: 09/12/21 Date of : 09/22/21 Principle Diagnosis Problem List: Active and Suspected Problems (Updated 09/19/21 @ 16:[address] Jean Pierre Joseph MD) Chronic kidney disease, stage 3b (Acute) JAMES (acute kidney injury) (Acute) Hyperkalemia (Acute) Acute respiratory failure with hypoxia (Acute) COVID-19 (Acute) Encephalopathy (Acute) Hypoxemia (Acute) Acute renal insufficiency (Acute) Weakness (Acute) Hospital Course 71-year-old male with past medical history of hypertension, MGUS with progressive proteinuria, leukemia, CKD, who was vaccinated against COVID-19, comes in with confusion. Patient was reportedly confused and did not know how to use the TV remote. He was found to have acute COVID-19 in the ED. He was admitted to the floor and managed on dexamethasone as well as put on oxygen. He got progressively worse and was put on Airvo. His D-dimer was elevated and was empirically treated with Lovenox. He remained lethargic. He was transferred to the ICU on 09/17/21. Patient was intubated on the same day for worsening respiratory distress. His CODE STATUS was made DNR CCA, no reintubation by his son on 09/18. Patient had worsening of his kidney function. Nephrology was consulted. Patient had dialysis on 09/18, 09/19, 09/20/21. He dropped his blood pressure requiring the use of IV pressors. He also went into A. fib with RVR and was managed on amiodarone. Patient had hypokalemia and hypocalcemia underway resolved with dialysis in IV replacement. Patient was noted to have developing pneumomediastinum. With further deterioration clinically with lack of cough and gag reflex is noted on the night of 09/03 9, worsening oxygenation and hypotension, family decided to withdraw care. Patient was terminally extubated. Time of was 1430 Visit Charges Inpatient E&M: [id number] [facility]
[2021-09-23 09:24] LABS: Pathologist Review Reviewed
[2021-09-23 09:45] LABS: Pathologist Review Reviewed
[2021-09-23 09:48] LABS: Pathologist Review Reviewed
== END 2021-09-22 16:45 | DRG 207 ==
LOC: ED 15:50 → MS3 16:21 → ICU 09-17 03:30
PROVIDERS: Internal Medicine Critical Care Medicine; Internal Medicine Nephrology; Student in an Organized Health Care Education/Training Program; Emergency Provider Emergency Medicine; PCP Internal Medicine; Visit Provider Internal Medicine
DX: U07.1 COVID-19 (principal); J12.82 Pneumonia due to coronavirus disease 2019; J96.01 Acute respiratory failure with hypoxia; G93.41 Metabolic encephalopathy; N17.0 Acute kidney failure with tubular necrosis; A41.89 Other specified sepsis; R65.21 Severe sepsis with septic shock; E87.5 Hyperkalemia; E87.6 Hypokalemia; J98.2 Interstitial emphysema; I12.9 Hypertensive chronic kidney disease with stage 1 through stage 4 chronic kidney disease, or unspecified chronic kidney disease; N18.32 Chronic kidney disease, stage 3b; Z66 Do not resuscitate; I48.91 Unspecified atrial fibrillation; E83.51 Hypocalcemia; G62.9 Polyneuropathy, unspecified; Z87.891 Personal history of nicotine dependence; Z51.5 Encounter for palliative care; Z85.6 Personal history of leukemia
CPT/HCPCS: 31500; 31720; 36415; 36569; 36600; 70450; 71045; 80048; 80053; 81001; 82550; 82803; 82962; 83605; 83735; 83880; 84100; 84145; 84478; 84484; 85025; 85379; 86140; 86706; 87040; 87070; 87086; 87205; 87340; 87426; 87449; 87804; 90937; 92523; 93005; 93970; 94002; 94003; 94660; 94667; 94668; 94762; 97110; 97162; 97165; 97530; 97535; 97802; 97803; 99251; 99285; J2185; J7030; J7040; J7050; A4216; C1752; G0257; G0463; J0610; J1940; J2405; J3010